=== PATIENT | male | born 1940 | race Caucasian/White ===

== ENCOUNTER → 2017-08-27 07:59 | Outpatient (CLI) | payer MEDICARE, SELFPAY ==
[2017-08-27 09:13] LABS: Add Manual Diff / Slide Review NO; Basophils Percent Auto 0.7 % (0-2); Eosinophils Percent Auto 1.4 % (2-4); Hematocrit 41.1 % (41-53); Hemoglobin 14.1 g/dL (13.5-17.5); Lymphocytes Percent Auto 29.9 % (25-40); Mean Corpuscular HGB Conc 34.3 % (30-36); Mean Corpuscular Volume 96.4 fL (80-100); Monocytes Percent Auto 6.4 % (3-14); Neutrophils Absolute Auto 4400 /uL (3000-5900); Neutrophils Percent Auto 61.6 % (50-75); Platelet Count 212 X10^3/uL (150-400); Red Blood Cell Count 4.26 X10^6/uL (4.5-5.9); White Blood Cell Count 7.2 X10^3/uL (4.5-11.0)
[2017-08-27 09:28] LABS: INR 1.9 (0.9-1.3); Prothrombin Time 20.1 SECONDS (10.1-12.7)
[2017-08-27 09:54] LABS: Alanine Aminotransferase 33 IU/L (21-72); Albumin 4.1 g/dL (3.5-5.0); Albumin Globulin Ratio 1.4 (1.0-2.8); Alkaline Phosphatase 50 U/L (38-126); Aspartate Aminotransferase 27 IU/L (17-59); Bilirubin Total 0.7 mg/dL (0.2-1.3); Calcium 9.1 mg/dL (8.4-10.2); Estimated Glomerular Filt Rate > 60.0 mL/min (>60); Globulin 2.9 g/dL (1.7-4.1); Glucose 129 mg/dL (80-110); HEMOLYSIS < 15 (0-50); Magnesium 1.8 mg/dL (1.6-2.3); Potassium 3.9 mmol/L (3.4-5.1); Sodium 142 mmol/L (137-145)
[2017-08-27 10:20] LABS: Thyroid Stimulating Hormone 2.08 uIU/mL (0.47-4.68)
== END ==
PROVIDERS: PCP Family Medicine; Visit Provider Internal Medicine Cardiovascular Disease
DX: I48.0 Paroxysmal atrial fibrillation (principal); I48.91 Unspecified atrial fibrillation
CPT/HCPCS: 36415; 80053; 83735; 84443; 85025; 85610

== ENCOUNTER → 2017-10-31 09:07 | Outpatient (CLI) | payer MEDICARE, SELFPAY ==
[2017-10-31 11:06] LABS: Cholesterol 141 mg/dL (140-199); HDL Cholesterol 71 mg/dL (40-60); LDL Cholesterol Calculated 19 mg/dL (<100); Triglycerides 255 mg/dL (35-150)
== END ==
PROVIDERS: PCP Family Medicine; Visit Provider Internal Medicine Cardiovascular Disease
DX: E78.5 Hyperlipidemia, unspecified (principal)
CPT/HCPCS: 36415; 80061

== ENCOUNTER 2017-11-16 15:24 | Inpatient (IN) | payer MEDICARE, SELFPAY ==
[2017-11-16] VITALS (23 sets, daily range): BP systolic 98–143; BP diastolic 57–89; PULSE 96–160; RESP 14–30; TEMP 36.1–37.2; O2SAT 92–100; BMI 34.7
--- NOTE | 2017-11-16 | DI.RAD.S_ITS ---
PROCEDURE: XR SHOULDER RT 1V INDICATIONS: CLOSED REDUCTION TECHNIQUE: 3 views of the shoulder were acquired. COMPARISON: [facility], CR, XR SHOULDER RT MIN 2V, 11/16/2017, 16:20. FINDINGS: Intraoperative fluoroscopy of the right shoulder was performed for the referring clinical service, with provided images demonstrating the reduction of the previously noted shoulder dislocation seen on comparison radiographs of 11/16/2017. IMPRESSION: Intraoperative fluoroscopy of right shoulder reduction. Please refer to the clinical note/operative report for further details. Dictated by: Yung Green M.D. on 11/17/2017 at 8:46 Approved by: Yung Green M.D. on 11/17/2017 at 8:48
--- NOTE | 2017-11-16 15:33 | DI.RAD.S_ITS ---
PROCEDURE: XR SHOULDER RT MIN 2V INDICATIONS: obvious shoulder deformity TECHNIQUE: 2 views of the shoulder were acquired. COMPARISON: None. FINDINGS: Bones: The humeral head is dislocated anteroinferiorly.. No suspicious bony lesions. Visualized ribs appear intact. Soft tissues: No suspicious soft tissue calcifications. IMPRESSION: Anteroinferior shoulder dislocation. Dictated by: Azam Castro M.D. on 11/16/2017 at 16:35 Approved by: Azam Castro M.D. on 11/16/2017 at 16:35
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
[2017-11-16] MEDS: ASPIRIN 81 MG TAB 324 MG PO (15:57)
[2017-11-16] MEDS: SODIUM CHLORIDE 0.9% 1,000 ML 150 ML IV (15:58)
[2017-11-16 16:00] LABS: Add Manual Diff / Slide Review NO; Basophils Percent Auto 0.6 % (0-2); Eosinophils Percent Auto 0.4 % (2-4); Hemoglobin 13.9 g/dL (13.5-17.5); Lymphocytes Percent Auto 24.2 % (25-40); Mean Corpuscular HGB Conc 34.6 % (30-36); Mean Corpuscular Hemoglobin 33.5 PG (26-34); Mean Corpuscular Volume 96.6 fL (80-100); Neutrophils Absolute Auto 7400 /uL (3000-5900); Neutrophils Percent Auto 67.8 % (50-75); Platelet Count 209 X10^3/uL (150-400); Red Blood Cell Count 4.14 X10^6/uL (4.5-5.9); Red Cell Distribution Width 14.1 % (11.6-14.8)
[2017-11-16 16:11] LABS: Alanine Aminotransferase 31 IU/L (21-72); Albumin 4.3 g/dL (3.5-5.0); Albumin Globulin Ratio 1.7 (1.0-2.8); Alkaline Phosphatase 55 U/L (38-126); Aspartate Aminotransferase 32 IU/L (17-59); BUN Creatinine Ratio 18.6 (6-22); Bilirubin Total 0.8 mg/dL (0.2-1.3); Blood Urea Nitrogen 13 mg/dL (9-20); Carbon Dioxide 26 mmol/L (22-32); Chloride 103 mmol/L (98-107); Creatine Kinase 123 U/L (55-170); Estimated Glomerular Filt Rate > 60.0 mL/min (>60); Globulin 2.6 g/dL (1.7-4.1); Glucose 142 mg/dL (80-110); HEMOLYSIS < 15 (0-50); Lipase 150 U/L (23-300); Potassium 3.3 mmol/L (3.4-5.1); Sodium 140 mmol/L (137-145); Total Protein 6.9 g/dL (6.3-8.2)
[2017-11-16 16:23] LABS: Troponin I < 0.012 ng/mL (0.01-0.034)
[2017-11-16 16:26] LABS: CKMB % Relative Index 1.1 % (1.5-5.0); Creatine Kinase MB 1.31 ng/mL (<2.37)
[2017-11-16 16:54] LABS: INR 4.2 (0.9-1.3); Prothrombin Time 47.6 SECONDS (10.1-12.7)
[2017-11-16] MEDS: PROPOFOL 200 MG/20 ML VIAL 100 MG IV (17:52)
[2017-11-16] MEDS: dilTIAZem 25 MG/5 ML SDV 10 MG IV (18:13)
[2017-11-16] MEDS: fentaNYL 100 MCG/2 ML INJ 25 MCG IV ×2 (18:49→19:52)
[2017-11-16] MEDS: dilTIAZem 125 MG in DEXTROSE 5 % IN WATER 100 ML IV (18:50)
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
[2017-11-16] MEDS: dilTIAZem 25 MG/5 ML SDV 20 MG IV (20:00)
[2017-11-16 20:23] LABS: Magnesium 1.8 mg/dL (1.6-2.3)
[2017-11-16] MEDS: SODIUM CHLORIDE 0.9% 1,000 ML 125 ML IV (20:57)
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
[2017-11-16] MEDS: POTASSIUM CHLORIDE 20 MEQ in SODIUM CHLORIDE 0.9% 250 ML 130 ML IV (21:14)
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
--- NOTE | 2017-11-16 21:32 | PC.NURSE ---
2019- Patient arrived via stretcher to room 106. Patient alert and oriented. Patient right shoulder is dislocated and painful. Patient on diltiazem gtt at 15mg/hr, 20mg bolus given per order. Patient started on krider per MD order. Vss. Room air saturation 96% Patient admits to drinking daily, last drink yesterday marisela. IV fluids running per order 125cc/hr. Patient left for OR at 2120 stable at time of transfer.
[2017-11-16 21:44] LABS: TSH w/ Reflex to FT4 2.48 uIU/mL (0.47-4.68)
--- NOTE | 2017-11-16 21:57 | SUR.OPER ---
Supine on padded OR bed, head on pillow, arms secured on padded arm boards at <90 degrees abduction, legs uncrossed, safety belt at thigh, tape over blanket over lower legs.
--- NOTE | 2017-11-16 22:05 | PM.PN.1 ---
Subjective Date Patient Seen: 11/16/17 Time Patient Seen: 22:05 Interval history: This is an addendum to H and P >60minutes was spent in critical care at bedside with patient in ER Exam Vital Signs (past 8 hours): - 11/16/17 15:46 11/16/17 16:15 11/16/17 17:06 Temperature 97 F L Pulse Rate 154 H 153 H 139 H Respiratory Rate 15 22 14 Blood Pressure 116/77 Blood Pressure [Left Arm] 130/76 H 143/81 H Pulse Oximetry 93 96 11/16/17 17:25 11/16/17 17:30 11/16/17 17:31 Temperature Pulse Rate 145 H 152 H 136 H Respiratory Rate 23 20 22 Blood Pressure Blood Pressure [Left Arm] 131/83 H 117/69 129/71 H Pulse Oximetry 100 96 93 11/16/17 17:34 11/16/17 17:39 11/16/17 17:42 Temperature Pulse Rate 141 H 148 H 160 H Respiratory Rate 24 19 20 Blood Pressure Blood Pressure [Left Arm] 98/61 110/66 Pulse Oximetry 99 98 11/16/17 17:44 11/16/17 17:49 11/16/17 18:20 Temperature Pulse Rate 131 H 139 H 138 H Respiratory Rate 30 H 21 18 Blood Pressure Blood Pressure [Left Arm] 130/66 H 131/61 H 102/83 H Pulse Oximetry 98 100 99 11/16/17 18:50 11/16/17 19:46 11/16/17 20:07 Temperature Pulse Rate 146 H 148 H 143 H Respiratory Rate 17 17 Blood Pressure 130/63 H Blood Pressure [Left Arm] 134/89 H 121/68 H Pulse Oximetry 97 96 Oxygen Delivery Method Room Air Oxygen Flow Rate 2 Objective Labs Result Diagrams: 11/16/17 15:50 11/16/17 15:50 Labs: Laboratory Results - last 24 hr 11/16/17 11/16/17 11/16/17 15:50 15:50 15:50 WBC 11.0 RBC 4.14 L Hgb 13.9 Hct 40.0 L MCV 96.6 MCH 33.5 MCHC 34.6 RDW 14.1 Plt Count 209 Neut % (Auto) 67.8 Lymph % (Auto) 24.2 L [place] % (Auto) 7.0 Eos % (Auto) 0.4 L Baso % (Auto) 0.6 Neut # (Auto) 7400 H PT INR Sodium 140 Potassium 3.3 L Chloride 103 Carbon Dioxide 26 BUN 13 Creatinine 0.70 Estimated GFR > 60.0 BUN/Creatinine Ratio 18.6 Glucose 142 H Calcium 9.0 Magnesium 1.8 Total Bilirubin 0.8 AST 32 ALT 31 Alkaline Phosphatase 55 Total Creatine Kinase 123 CK-MB (CK-2) 1.31 CK-MB (CK-2) Rel Index 1.1 L Troponin I < 0.012 Total Protein 6.9 Albumin 4.3 Globulin 2.6 Albumin/Globulin Ratio 1.7 Lipase 150 TSH 11/16/17 11/16/17 15:50 16:48 WBC RBC Hgb Hct MCV MCH MCHC RDW Plt Count Neut % (Auto) Lymph % (Auto) [place] % (Auto) Eos % (Auto) Baso % (Auto) Neut # (Auto) PT 47.6 H INR 4.2 H Sodium Potassium Chloride Carbon Dioxide BUN Creatinine Estimated GFR BUN/Creatinine Ratio Glucose Calcium Magnesium Total Bilirubin AST ALT Alkaline Phosphatase Total Creatine Kinase CK-MB (CK-2) CK-MB (CK-2) Rel Index Troponin I Total Protein Albumin Globulin Albumin/Globulin Ratio Lipase TSH 2.48 Quality VTE Deep Vein Thrombosis/Pulmonary Embolism Present on Admission: No
--- NOTE | 2017-11-16 22:12 | SUR.OPER ---
Big C arm was used during procedure
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
[2017-11-16] MEDS: HYDROMORPHONE 0.5 MG INJ IV (22:39)
--- NOTE | 2017-11-16 22:40 | SUR.PHASEI ---
PT TRANSFERED TO ICU AT 2230 ON THE MONITOR. PT VITAL SIGNS REMAINED STABLE. PT TALKING TO RN DURING TRANSPORT. BEDSIDE REPORT GIVEN TO DENIS CABALLERO UPON ARRIVAL TO PT ROOM. CARE OF PT TRANSFERED TO [facility] AT THAT TIME.
--- NOTE | 2017-11-16 22:45 | PC.NURSE ---
2229- Patient returned from OR procedure. Awake alert and cooperative. Patient rates his pain at 4/10 medicated per order. Patient right shoulder immobilized. Vitals stable upon arrival. Diltiazem gtt at 15mg/hr, krider infusing per order, maint IV infusing per order at 125cc/hr. Room air saturation 96%
--- NOTE | 2017-11-16 23:20 | PM.PREOP ---
Pre-operative Note Interval Note Pre-op Check: Yes Exam Performed and Yes History & Physical exam performed today by Physician Changes: No H&P completed within 30 days and has changed as indicated here:: H&P performed today by this provider. The patient appropriate for closed reduction in the operating room with sedation, right shoulder dislocation
[2017-11-17] VITALS (17 sets, daily range): BP systolic 108–141; BP diastolic 50–78; PULSE 74–96; RESP 12–19; TEMP 36.6–37.5; O2SAT 90–96
[2017-11-17 00:17] LABS: Creatine Kinase 883 U/L (55-170)
[2017-11-17 00:30] LABS: Troponin I 0.095 ng/mL (0.01-0.034)
[2017-11-17 00:33] LABS: CKMB % Relative Index 0.3 % (1.5-5.0); Creatine Kinase MB 2.76 ng/mL (<2.37)
[2017-11-17] MEDS: HYDROMORPHONE 0.5 MG INJ IV ×4 (00:53→07:01)
[2017-11-17] MEDS: dilTIAZem 125 MG in DEXTROSE 5 % IN WATER 100 ML 15 ML IV (03:09)
[2017-11-17] MEDS: SODIUM CHLORIDE 0.9% 1,000 ML 150 ML IV (05:03)
[2017-11-17 05:32] LABS: Add Manual Diff / Slide Review NO; Basophils Percent Auto 0.4 % (0-2); Eosinophils Percent Auto 0.1 % (2-4); Hematocrit 35.7 % (41-53); Mean Corpuscular HGB Conc 33.7 % (30-36); Mean Corpuscular Hemoglobin 32.8 PG (26-34); Mean Corpuscular Volume 97.3 fL (80-100); Monocytes Percent Auto 8.7 % (3-14); Neutrophils Absolute Auto 8000 /uL (3000-5900); Neutrophils Percent Auto 70.8 % (50-75); Platelet Count 187 X10^3/uL (150-400); Red Blood Cell Count 3.66 X10^6/uL (4.5-5.9); Red Cell Distribution Width 13.8 % (11.6-14.8); White Blood Cell Count 11.3 X10^3/uL (4.5-11.0)
[2017-11-17 05:39] LABS: Prothrombin Time 33.3 SECONDS (10.1-12.7)
[2017-11-17 05:47] LABS: Alanine Aminotransferase 29 IU/L (21-72); Albumin Globulin Ratio 1.4 (1.0-2.8); Alkaline Phosphatase 39 U/L (38-126); Aspartate Aminotransferase 36 IU/L (17-59); Bilirubin Total 1.4 mg/dL (0.2-1.3); Blood Urea Nitrogen 6 mg/dL (9-20); Carbon Dioxide 28 mmol/L (22-32); Chloride 103 mmol/L (98-107); Creatine Kinase 1146 U/L (55-170); Estimated Glomerular Filt Rate > 60.0 mL/min (>60); Globulin 2.2 g/dL (1.7-4.1); Glucose 124 mg/dL (80-110); HEMOLYSIS < 15 (0-50); Magnesium 1.4 mg/dL (1.6-2.3); Potassium 2.8 mmol/L (3.4-5.1); Sodium 137 mmol/L (137-145); Total Protein 5.2 g/dL (6.3-8.2)
[2017-11-17 05:56] LABS: Troponin I 0.089 ng/mL (0.01-0.034)
[2017-11-17 06:02] LABS: CKMB % Relative Index 0.3 % (1.5-5.0); Creatine Kinase MB 2.94 ng/mL (<2.37)
[2017-11-17 06:04] LABS: Calcium 6.9 mg/dL (8.4-10.2)
[2017-11-17] MEDS: POTASSIUM CHLORIDE 40 MEQ in SODIUM CHLORIDE 0.9% 500 ML 130 ML IV (06:43)
[2017-11-17] MEDS: dilTIAZem 30 MG TABLET 60 MG PO ×2 (08:49→12:06)
[2017-11-17] MEDS: THIAMINE 100 MG TABLET PO (08:50)
[2017-11-17] MEDS: MULTIVITAMIN 1 TABLET 1 TAB PO (08:50)
[2017-11-17] MEDS: FOLIC ACID 1 MG TABLET PO (08:50)
[2017-11-17] MEDS: HYDROCODONE/ACET 5/325 TABLET 2 TAB PO ×2 (09:05→18:32)
[2017-11-17] MEDS: PANTOPRAZOLE 40 MG VIAL IV (09:09)
--- NOTE | 2017-11-17 10:52 | PC.NURSE ---
pt weak and slightly disorganized this am- allowed to sit on edge of bed and assessed prior to getting up to chair for am meal - meadicated with vicodin x 2 for c/o right shoulder pain- lungs clear throughout - sling in place to right upper extremity, + cms , voiding frequently pale and clear urine- will be evaluated by PT - also, started on po diltiazem 60mg and weaned dilt gtt to 10mg so far will d/c as able after 2nd dose of po dilt given at noon-time- remains in afib
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
[2017-11-17] MEDS: HYDROCODONE/ACET 5/325 TABLET 1 TAB PO ×2 (12:57→14:57)
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
[2017-11-17] MEDS: MAGNESIUM SULFATE 2 GM/50 ML PIGGYBACK IV (14:33)
[2017-11-17] MEDS: METOPROLOL ER 50 MG TABLET PO (14:50)
[2017-11-17] MEDS: DOCUSATE 100 MG CAPSULE 200 MG PO ×2 (14:54→22:02)
--- NOTE | 2017-11-17 15:23 | PT.IPTN ---
Surgery Performed Operation Date: 11/16/17 09:15 Actual Procedures p Closed Reduction right shoulder dislocation - Xochitl Bird MD Physical Therapy Treatment Note M2 PT-IP Current Condition Start: 11/17/17 12:53 Freq: Status: Active Protocol: Document 11/17/17 11:40 RCC (Rec: 11/17/17 13:09 RCC [id number]) Physical Therapy Current Condition Current Condition Evaluation Date 11/17/17 Treatment Diagnosis R shoulder dislocation s/p closed reduction 11/16/17, A- fib with RVR Onset Date 11/16/17 Precautions Shoulder Precautions Sling Other Precautions sling and swathe @ all times, no mobilization or ROM of R shoulder for 1 wk. Weight Bearing Status Weight Bearing Status Non-Weight Bearing Allowed Weight Bearing Amount (enter % NWB RUE or #) (%) M3 PT-IP Subjective Start: 11/17/17 12:53 Freq: Status: Active Protocol: Document 11/17/17 15:23 RCC (Rec: 11/17/17 15:30 RCC [id number]) Subjective Physical Therapy Visit Type Type Treatment Note Visit Start Time 15:00 Visit Stop Time 15:23 Total Visit Minutes 23 Number of NEWS SPECIALIST Visits 0 Physical Therapy Visit Comments Patient Comments pt agreeable to ambulate. Therapy Pain Assessment Pain When Pain Assessed At Rest Location Right Shoulder Intensity 4 Scale Used Numeric (1 - 10) M4 PT-IP Mobility and Gait Start: 11/17/17 12:53 Freq: Status: Active Protocol: Document 11/17/17 15:23 RCC (Rec: 11/17/17 15:30 RCC [id number]) PT-Bed Mobility Assessment Supine to Sit Supine to Sit Minimal Assistance 1 Person Assistance Head of Bed Elevated Sit to Supine Sit to Supine Contact Guard Assistance Head of Bed Elevated Scooting Scooting to Edge of Bed Contact Guard Assistance PT-Transfer Assessment Sit to and From Stand Sit to and from Stand Contact Guard Assistance Equipment Transfer Assistive Device Gait Belt Small Based Quad Cane Transfers Transfer Destination Bed Transfer Technique Stand Step Pivot Transfer Ability Level of Assist Contact Guard Assistance Gait Assessment Gait Gait Assistance Required: Contact Guard Assist Distance (Feet) (feet) 50 Assistive Devices Assistive Device Gait Belt Small Based Quad Cane Gait Deviations General Gait Pattern Decreased Stride Length Decreased Feet Clearance Wide Based Gait Factors Limiting Gait Function Factors Limiting Gait Function Decreased Activity Tolerance Decreased Strength Poor Balance Comments Gait Comments increased lateral sway with inconsistent contact of SBQC to the ground with gait, VC for sequencing. PT-Balance Assessment Standing Balance and Reactions Static Standing Balance Ability Fair Dynamic Standing Balance Ability Poor Device Used SBQC M5 PT-IP Objective Assessments Start: 11/17/17 12:53 Freq: Status: Active Protocol: Document 11/17/17 15:23 RCC (Rec: 11/17/17 15:30 RCC [id number]) Orientation Orientation/Cognition Level of Alertness Alert M6 PT-IP Treatment Start: 11/17/17 12:53 Freq: Status: Active Protocol: Document 11/17/17 15:23 RCC (Rec: 11/17/17 15:30 RCC [id number]) Physical Therapy Treatment Education Education Provided Precautions Safety M7 PT-IP Assessment and Plan Start: 11/17/17 12:53 Freq: Status: Active Protocol: Document 11/17/17 15:23 RCC (Rec: 11/17/17 15:30 RCC [id number]) PT Summary Assessment and Plan Summary Assessment Summary Pt is s/p closed reduction for R anterior shoulder dislocation on 11/16/17. Pt required less physical assistance with standing balance and gait, but still with moderate lateral sway. Pt is benefitting from using the quad cane, but he continues to require cuing for proper use to improve stability. Goals Bed Mobility Goal Standby Assistance Transfer Goal Independent Gait Goal Standby Assistance Cane Gait Distance 150 Other Goals up/down 2 steps with R ascending rail and CGA Days to Meet Goals 2 Frequency of Treatment Frequency Of Treatment Twice a Day Treatment Plan Other Recommendations and Next Treatment gait, stair training prior to Focus d/c. Recommendations To Nursing Amount of Assist Needed 1 Person Assist Discharge Recommendations PT Discharge Recommendations Home with 24/7 Assist SNF Rehab Other Discharge Recommendations home with 24/7 assist vs. SNF. Equipment Needed for Home Before quad cane Discharge
[2017-11-17 16:24] LABS: HEMOLYSIS < 15 (0-50); Magnesium 2.1 mg/dL (1.6-2.3); Potassium 3.4 mmol/L (3.4-5.1)
--- NOTE | 2017-11-17 17:12 | PC.NURSE ---
marisela note pt denies pain at this time. Right arm in sling. Intact CMS checks to right arm. 1-2+ edema to right hand, with shiny skin. Pt able to use urinal himself once he has been assisted OOB.
--- NOTE | 2017-11-17 23:47 | PM.CN ---
History of Present Illness Date Patient Seen: 11/17/17 Time Patient Seen: 13:47 Chief complaint: Rt shoulder pain Reason for consult: Rapid atrial fibrillation Requesting provider: Kiley Miranda Narrative: History of present illness Patient admitted to the hospital with rapid AFib. Initially placed and was placed on an IV diltiazem drip. An a.m. today I stopped the IV diltiazem drip. Patient had a pulse of 78 and in in continued atrial fibrillation. The the ventricular response to the AFib was controlled. The diltiazem 60 mg p.o. q.i.d. short-acting was started instead. [facility] Medical History CAD (coronary artery disease) (Acute) HTN (hypertension) (Acute) Hyperlipidemia (Acute) Surgical History Hx of CABG (Acute) Social History household members: spouse Smoking Status: Unknown if ever smoked alcohol intake: current Meds Home Medications Medication Instructions Recorded Confirmed Type allopurinol 300 mg PO DAILY 11/16/17 11/16/17 History atorvastatin [Lipitor] 40 mg PO DAILY 11/16/17 11/16/17 History desoximetasone 11/16/17 History metoprolol tartrate 50 mg PO DAILY 11/16/17 11/16/17 History omeprazole 10 mg PO DAILY 11/16/17 11/16/17 History pravastatin 40 mg PO DAILY 11/16/17 11/16/17 History warfarin [Coumadin] 2.5 mg PO 5XW 11/16/17 11/16/17 History warfarin [Coumadin] 5 mg PO 2XW 11/16/17 11/16/17 History Allergies Allergy/AdvReac Type Severity Reaction Status Date / Time No Known Drug Allergies Allergy Verified 11/16/17 18:35 Review of Systems Review of Systems Review of system No chest pain or shortness of breath no nausea no palpitations All systems reviewed & are unremarkable except as noted in HPI and below Exam Vital Signs (past 8 hours): - 11/17/17 19:46 Temperature 98.9 F Pulse Rate 93 H Respiratory Rate 17 Blood Pressure 118/57 L Oxygen Delivery Method Nasal Cannula Oxygen Flow Rate 1.5 Narrative Exam Narrative: General appearance Patient is awake and alert no apparent distress at rest Psychiatric Well oriented to time place person mood is pleasant affect is appropriate Respiratory Fair breath sounds are noted no wheezes no crackles Cardiovascular Irregular irregular rhythm rate controlled at about 85 per minute pulses +3 to extremities no murmur noted Gastrointestinal Soft nontender positive bowel sounds no masses no bruits Neurologic No focal neurologic changes cranial nerves 2-12 grossly intact Objective Labs Result Diagrams: 11/17/17 05:11 11/17/17 16:05 Labs: Laboratory Results - last 24 hr 11/16/17 11/16/17 11/17/17 20:25 23:43 05:11 WBC RBC Hgb Hct MCV MCH MCHC RDW Plt Count Neut % (Auto) Lymph % (Auto) [place] % (Auto) Eos % (Auto) Baso % (Auto) Neut # (Auto) PT 33.3 H D INR 3.0 H Sodium Potassium Chloride Carbon Dioxide BUN Creatinine Estimated GFR BUN/Creatinine Ratio Glucose Calcium Magnesium Total Bilirubin AST ALT Alkaline Phosphatase Total Creatine Kinase 883 H D CK-MB (CK-2) 2.76 H D CK-MB (CK-2) Rel Index 0.3 L Troponin I 0.095 H Total Protein Albumin Globulin Albumin/Globulin Ratio Nasal Screen MRSA (PCR) Negative for mrsa 11/17/17 11/17/17 11/17/17 05:11 05:11 16:05 WBC 11.3 H RBC 3.66 L Hgb 12.0 L Hct 35.7 L MCV 97.3 MCH 32.8 MCHC 33.7 RDW 13.8 Plt Count 187 Neut % (Auto) 70.8 Lymph % (Auto) 20.0 L [place] % (Auto) 8.7 Eos % (Auto) 0.1 L Baso % (Auto) 0.4 Neut # (Auto) 8000 H PT INR Sodium 137 Potassium 2.8 L 3.4 Chloride 103 Carbon Dioxide 28 BUN 6 L Creatinine 0.50 L Estimated GFR > 60.0 BUN/Creatinine Ratio 12.0 Glucose 124 H Calcium 6.9 L Magnesium 1.4 L 2.1 Total Bilirubin 1.4 H AST 36 ALT 29 Alkaline Phosphatase 39 Total Creatine Kinase 1146 H CK-MB (CK-2) 2.94 H CK-MB (CK-2) Rel Index 0.3 L Troponin I 0.089 H Total Protein 5.2 L Albumin 3.0 L Globulin 2.2 Albumin/Globulin Ratio 1.4 Nasal Screen MRSA (PCR) Assessment & Plan Plan: Assessment/Plan Narrative: 1. Atrial fibrillation with rapid ventricular response Patient with known history of atrial fibrillation on chronic anticoagulant therapy. INR is 4.2 and super therapeutic under admission. Coumadin held at this time. Patient given 10 mg of IV bolus diltiazem in the ER. Only partial response was noted. Patient was started on oral diltiazem IV infusion at 5 milligrams/hour titrating upward to try and bring the ventricular response to under 110 per minute. I saw the patient in the emergency room setting before being moved to the ICU. Upon arrival in the ICU his ventricular response rate was still up. I have requested for a 20 mg IV bolus of diltiazem IV. His blood pressure is stable and should tolerate such. In a.m. today the ventricular response was 78 beats per minute with a continued AFib. I stopped the IV diltiazem infusion. Patient was started on diltiazem 60 mg short-acting orally q.i.d. Dr. Miranda notes that the patient was basically rate controlled on the beta-adrian for the past several years or longer. She would like to hold the patient another day and monitor him off the diltiazem to see if the beta-adrian can adequately controls the patient's atrial fibrillation without the diltiazem. If necessary patient can be resumed on the diltiazem as well and discharged on this medication. 2. Supratherapeutic INR Hold the Coumadin and repeat INR daily. 3. 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 Continue his cardiac medications as tolerated. 4. Chronic alcoholism I requested Ativan order IV to be given based upon CIWA scoring. A baseline CIWA score was requested upon arrival to the ICU. During the night the CIWA score was checked every 2 hours while awake. Based upon the CIWA score could provide the Ativan when the 1-2 mg IV. 5. Shoulder dislocation Consulted with orthopedic surgeon with reduction completed under anesthesia. 6. Hypokalemia replace prn. Time Spent With Patient Time with patient: 25 - 35 minutes
[2017-11-18] MEDS: HYDROCODONE/ACET 5/325 TABLET 2 TAB PO ×3 (00:17→09:27)
[2017-11-18 00:21] VITALS: BP 140/68; PULSE 86; RESP 14; TEMP 37.1; O2SAT 97
[2017-11-18 04:48] VITALS: BP 148/77; PULSE 85; RESP 12; TEMP 36.9; O2SAT 95
[2017-11-18 07:32] VITALS: BP 129/70; PULSE 83; RESP 16; TEMP 36.7; O2SAT 95
--- NOTE | 2017-11-18 08:06 | PM.DS.1 ---
History of Present Illness Date Patient Seen: 11/18/17 Time Patient Seen: 08:06 Chief complaint: Rt shoulder pain Narrative: See H& P. 77-year-old brought in after a fall. Dislocated right shoulder. Was in rapid ventricular rate. Admitted. Discharge Providers Date of admission: 11/16/17 18:39 Primary care physician: Enrike Arce MD Consults: 11/16/17 20:42 Consult to Orthopedic Surgery Routine Comment: Consulting Provider: Xochitl Bird Reason for consultation: Dislocated Shoulder Has provider been notified: Yes Consult to Physician Routine Comment: Consulting Provider: Ze Qiu Reason for consultation: ICU Management Has provider been notified: Yes 11/17/17 09:03 Consult to Physical Therapy Evaluate & Treat Comment: Physician Instructions: Evaluate and Treat Discharge provider: Enrike Arce MD Summary Hospital Course: Problem 1. Right shoulder dislocation. Patient was admitted to the hospital and taken to the OR. After multiple attempts at trying to reduce it. Was reduced in the OR. Placed in a sling. Patient is comfortable and doing well. Will be followed up as an outpatient. Problem 2. Atrial fibrillation with rapid ventricular rate. Longstanding. Patient overall was restarted on his metoprolol. On day 2 we converted and did well. Was aggressively managed with Cardizem prior to that. Problem 3. Elevated INR. Will be followed. Restart his usual Coumadin all check blood work on Saturday. Problem 4. History of coronary artery disease stable throughout admission. History of esophageal stricture. Continue Protonix as outpatient. Hypokalemia. Has been on meds. Will follow up before discharge. Hypo magnesium. Replaced. Check today. Will follow. Status at Discharge Cognitive/behavioral status at discharge: Stable. Functional status at discharge: independent ambulation Overall status at discharge: patient is progressing back to baseline Time Spent with Patient Greater than 30 minutes Exam Vital Signs (past 8 hours): - 11/18/17 00:21 11/18/17 04:48 11/18/17 07:32 Temperature 98.7 F 98.5 F 98.0 F Pulse Rate 86 85 83 Respiratory Rate 14 12 16 Blood Pressure 140/68 H 148/77 H 129/70 H Pulse Oximetry 97 95 95 Oxygen Delivery Method Nasal Cannula Oxygen Flow Rate 0 Objective Labs Result Diagrams: 11/17/17 05:11 11/17/17 16:05 Labs: Laboratory Results - last 24 hr 11/17/17 16:05 Potassium 3.4 Magnesium 2.1 Discharge Plan Discharge Plan Patient Disposition: Home, Self-Care Discharge comment: call me with labs when available. Provider Discharge Instructions Diet comment: normal Activity: as tolerated. leave shoulder immobilizer in place Cold/Heat Therapy: Can use ice to shoulder Other treatments: Continue CPAP Discharge Data Primary Care Provider: Enrike Arce Attending Provider: Kiley Miranda Admit Date/Time: 11/16/17 18:39 Quality VTE Deep Vein Thrombosis/Pulmonary Embolism Present on Admission: No
[2017-11-18 08:54] VITALS: PULSE 107
[2017-11-18] MEDS: METOPROLOL ER 50 MG TABLET PO (08:54)
[2017-11-18] MEDS: FOLIC ACID 1 MG TABLET PO (08:54)
[2017-11-18] MEDS: PANTOPRAZOLE 40 MG VIAL IV (08:54)
[2017-11-18] MEDS: THIAMINE 100 MG TABLET PO (08:54)
[2017-11-18] MEDS: MULTIVITAMIN 1 TABLET 1 TAB PO (08:54)
[2017-11-18] MEDS: DOCUSATE 100 MG CAPSULE 200 MG PO (08:55)
[2017-11-18 09:28] LABS: Blood Urea Nitrogen 7 mg/dL (9-20); Calcium 8.3 mg/dL (8.4-10.2); Carbon Dioxide 31 mmol/L (22-32); Chloride 101 mmol/L (98-107); Estimated Glomerular Filt Rate > 60.0 mL/min (>60); Glucose 111 mg/dL (80-110); HEMOLYSIS < 15 (0-50); Potassium 3.5 mmol/L (3.4-5.1); Sodium 138 mmol/L (137-145)
--- NOTE | 2017-11-18 10:04 | PT.IPTN ---
Surgery Performed Operation Date: 11/16/17 09:15 Actual Procedures p Closed Reduction Right Shoulder Dislocation(Right) - Xochitl Bird MD Physical Therapy Treatment Note M2 PT-IP Current Condition Start: 11/17/17 12:53 Freq: Status: Active Protocol: Document 11/17/17 11:40 RCC (Rec: 11/17/17 13:09 RCC [id number]) Physical Therapy Current Condition Current Condition Evaluation Date 11/17/17 Treatment Diagnosis R shoulder dislocation s/p closed reduction 11/16/17, A- fib with RVR Onset Date 11/16/17 Precautions Shoulder Precautions Sling Other Precautions sling and swathe @ all times, no mobilization or ROM of R shoulder for 1 wk. Weight Bearing Status Weight Bearing Status Non-Weight Bearing Allowed Weight Bearing Amount (enter % NWB RUE or #) (%) M3 PT-IP Subjective Start: 11/17/17 12:53 Freq: Status: Active Protocol: Document 11/18/17 09:49 DLM (Rec: 11/18/17 10:03 DLM [id number]) Subjective Physical Therapy Visit Type Type Treatment Note Visit Start Time 09:15 Visit Stop Time 09:49 Total Visit Minutes 34 Number of RAMP FLIGHT ATTENDANT Visits 0 Physical Therapy Visit Comments Patient Comments He wants to go home today, is not sure who can help him at home, he does not have a cane. His Son will be with him today but then plans to return to [place]. Therapy Pain Assessment Pain When Pain Assessed At Rest Pain Present Pain Present Pain Reported Location Right Shoulder Intensity 3 Scale Used Numeric (1 - 10) Description Aching Pain Behaviors Guarding M4 PT-IP Mobility and Gait Start: 11/17/17 12:53 Freq: Status: Active Protocol: Document 11/18/17 09:49 DLM (Rec: 11/18/17 10:03 DLM [id number]) PT-Transfer Assessment Sit to and From Stand Sit to and from Stand Contact Guard Assistance Use of Upper Extremities Equipment Transfer Assistive Device Gait Belt Small Based Quad Cane Orthotic/Prosthetic Devices or Brace: Yes Gait Assessment Gait Gait Assistance Required: Contact Guard Assist Minimum Assistance Distance (Feet) (feet) 75 Assistive Devices Assistive Device Gait Belt Small Based Quad Cane Gait Deviations General Gait Pattern Decreased Stride Length Decreased Feet Clearance Factors Limiting Gait Function Factors Limiting Gait Function Decreased Strength Pain Poor Balance Comments Gait Comments short shuffling strides, he describes his LE's as feeling like rubber, reminders needed to use his quad cane Stair Climbing Assessment Evaluation Level of Assist On Stairs Contact Guard Assistance Minimal Assistance Devices Stair Climbing Assistive Devices Left Railing Right Railing Technique/Endurance Stair Climbing Direction Ascend and Descend Stair Climbing Technique Step to Step Number of Steps Climbed 1 Query Text: Stair Climbing Set # Repetitions (reps) 4 Comments Stair Climbing Comments able to get up/down step better when rail on left side, he has difficulty problem solving to turn sideways when using right rail with left hand and making space on the step for both feet. His step into the house has rail on right side so getting in will be more challenging for him than getting out of the house. PT-Balance Assessment Sitting Balance and Reactions Static Sitting Balance Ability Normal Dynamic Sitting Balance Ability Good Standing Balance and Reactions Static Standing Balance Ability Fair Dynamic Standing Balance Ability Fair Device Used quad cane Comments Other Balance Tests/Deviations/Treatment slow mental processing today, : difficulty problem solving M5 PT-IP Objective Assessments Start: 11/17/17 12:53 Freq: Status: Active Protocol: Document 11/17/17 15:23 RCC (Rec: 11/17/17 15:30 RCC [id number]) Orientation Orientation/Cognition Level of Alertness Alert M6 PT-IP Treatment Start: 11/17/17 12:53 Freq: Status: Active Protocol: Document 11/18/17 09:49 DLM (Rec: 11/18/17 10:03 DLM [id number]) Physical Therapy Treatment Education Education Provided Precautions Weight Bearing Status Safety M7 PT-IP Assessment and Plan Start: 11/17/17 12:53 Freq: Status: Active Protocol: Document 11/18/17 09:49 DLM (Rec: 11/18/17 10:03 DLM [id number]) PT Summary Assessment and Plan Summary Progress Towards Goals Progressing Toward Goals Slow Progress due to Activity Tolerance Assessment Summary He continues to show an unsteady gait pattern and needs a small based quad cane. Even with the cane is gait is short/shuffling steps that make him high risk for tripping. He will need help at home but can not verbalize a plan to get help. It is unclear how much help his can provide since she had a recent fall with hip injury. He is able to get up and down steps but will need assistance to get in/out of the house. Frequency of Treatment Frequency Of Treatment Twice a Day Treatment Plan Other Recommendations and Next Treatment continue gait training to Focus decrease his fall risk Recommendations To Nursing Amount of Assist Needed 1 Person Assist Discharge Recommendations PT Discharge Recommendations Home with 24/ Assist Home Health Equipment Needed for Home Before quad cane Discharge
--- NOTE | 2017-11-18 11:11 | PC.NURSE ---
pt preparing for discharge - showered and saline locks removed- he does report having assist at home for 1 week and is accepting of home helath services after conferencing with Narda of case mgmnt- skin intact voiding well still in need of bm but feels that he can accomplish that in his own home= MD aware and concerned
--- NOTE | 2017-11-18 13:11 | CM.DPC ---
DCP: continued: met with pt again to followup on d/c plan. Dr. Arce was here and did ok him for d/c to home today. Conferred with PT Flavia, who saw pt today, DENIS Andres and then met with pt. He was up, dressed, showered and stated he felt much better. Sling in place. Pt confirms that his son will be here early afternoon after he takes Mary Anne to the doctor. He says his son will spend the day but plans to go home this evening. He says that his brother in law Velasquez and Velasquez's (in a w/c) have been visiting and will be staying at least the rest of the week. He says he expects Velasquez will be of good help to him and that Velasquez will be the farm truck driver in the group. HHS discussed and he is readily agreeable to RN/PT/OT/ELECTRICAL TROUBLESHOOTER/[employer] [facility] [employer]. Choice list: given Decision: [facility] Referral: [facility] who accepts and RN can go out tomorrow. Oksana aware that Dr. Arce did not sign the Face/Face and she states she will obtain this directly from him later this week. HH orders, Face/Face completed minus signature and clinicals are being faxed to [facility] now by [facility]. Pt plans to pick up man the cane recommended by PT at [facility] PT Flavia says she called and they are in stock there.. Pt is provided with resources for private caregiver agencies. Accepts these but says I think between Velasquez and the home health services I will be ok. Brief discussion re pain medications and pt's alcohol use. Pt says he is very aware of the dangers, has talked about this with Dr. Arce and says I do not plan to use alcohol when I get home. Pt also notes, I could have when I went overboard. I guess I am getting another chance at life. Offered to go over the plans for home with son when he arrives. Pt said he would call if needed but since his son will not be very involved he did not think it necessary.
== END 2017-11-18 13:15 | disposition home health service (06) | DRG 310 ==
LOC: ED 15:34 → ICU 19:15
PROVIDERS: Internal Medicine; Orthopaedic Surgery Foot and Ankle Surgery; Admitting Provider Family Medicine; Emergency Provider Emergency Medicine; Family Provider Family Medicine; PCP Family Medicine; Visit Provider Family Medicine
PROC: 0PSCXZZ Reposition Right Humeral Head, External Approach (ICD-10-PCS; principal; 2017-11-16 09:15)
DX: I48.91 Unspecified atrial fibrillation (principal); S43.014A Anterior dislocation of right humerus, initial encounter; I25.10 Atherosclerotic heart disease of native coronary artery without angina pectoris; Z95.1 Presence of aortocoronary bypass graft; Z79.01 Long term (current) use of anticoagulants; K22.2 Esophageal obstruction; I10 Essential (primary) hypertension; M10.9 Gout, unspecified; Z87.891 Personal history of nicotine dependence; E78.5 Hyperlipidemia, unspecified; E87.6 Hypokalemia; E83.42 Hypomagnesemia; F10.20 Alcohol dependence, uncomplicated
CPT/HCPCS: 23655; 36415; 36591; 71045; 73030; 76000; 80048; 80053; 82550; 82553; 83690; 83735; 84132; 84443; 84484; 85025; 85610; 87797; 92960; 93005; 93010; 93041; 94770; 96361; 96365; 96366; 96375; 96376; 97116; 97162; 97530; 99152; 99285; C9113; J1170; J2250; J2704; J3010; J3480

== ENCOUNTER → 2017-11-22 12:37 | Outpatient (CLI) | payer MEDICARE, SELFPAY ==
[2017-11-16 22:49] VITALS: BMI 34.7
[2017-11-22 14:08] LABS: Hematocrit 34.4 % (41-53); Hemoglobin 11.6 g/dL (13.5-17.5); Mean Corpuscular HGB Conc 33.7 % (30-36); Mean Corpuscular Hemoglobin 33.2 PG (26-34); Mean Corpuscular Volume 98.5 fL (80-100); Platelet Count 299 X10^3/uL (150-400); Red Blood Cell Count 3.49 X10^6/uL (4.5-5.9); Red Cell Distribution Width 14.1 % (11.6-14.8); White Blood Cell Count 10.5 X10^3/uL (4.5-11.0)
[2017-11-22 14:30] LABS: Alanine Aminotransferase 28 IU/L (21-72); Albumin Globulin Ratio 1.4 (1.0-2.8); Alkaline Phosphatase 44 U/L (38-126); Aspartate Aminotransferase 29 IU/L (17-59); BUN Creatinine Ratio 18.3 (6-22); Bilirubin Total 1.5 mg/dL (0.2-1.3); Blood Urea Nitrogen 11 mg/dL (9-20); Calcium 9.1 mg/dL (8.4-10.2); Carbon Dioxide 29 mmol/L (22-32); Chloride 100 mmol/L (98-107); Estimated Glomerular Filt Rate > 60.0 mL/min (>60); Globulin 2.9 g/dL (1.7-4.1); Glucose 97 mg/dL (80-110); HEMOLYSIS < 15 (0-50); Magnesium 2.3 mg/dL (1.6-2.3); Potassium 3.7 mmol/L (3.4-5.1); Sodium 139 mmol/L (137-145); Total Protein 6.9 g/dL (6.3-8.2)
[2017-11-22 14:59] LABS: TSH w/ Reflex to FT4 1.73 uIU/mL (0.47-4.68)
== END ==
PROVIDERS: PCP Family Medicine; Visit Provider Internal Medicine Cardiovascular Disease
DX: N40.1 Benign prostatic hyperplasia with lower urinary tract symptoms (principal); I10 Essential (primary) hypertension; I48.91 Unspecified atrial fibrillation; I48.0 Paroxysmal atrial fibrillation
CPT/HCPCS: 36415; 80053; 83735; 84443; 85027; G0103

== ENCOUNTER 2017-12-12 12:18 | Emergency (ER) | payer MEDICARE, SELFPAY ==
[2017-11-16 22:49] VITALS: BMI 34.7
[2017-12-12] VITALS (18 sets, daily range): BP systolic 94–128; BP diastolic 62–85; PULSE 67–138; RESP 11–24; TEMP 36.9; O2SAT 93–100; BMI 36.3
--- NOTE | 2017-12-12 12:22 | ED_ITS ---
HPI - Arrhythmia/Palpitations General Chief Complaint: Arrhythmia/Palpitations Stated Complaint: Afib with RVR Time Seen by Provider: 12/12/17 12:26 Source: patient Mode of arrival: ambulatory Limitations: no limitations History of Present Illness HPI narrative: The patient is a 77-year-old male with history of AFib presenting with AFib and RVR. He asked was seen here 11/16/2017 and discharged on 11/18/2017 for AFib with RVR and a right shoulder dislocation. The states they tried to cardiovert him on the however it did not work. He remained in AFib but rate controlled when he was discharged. He was seen by Dr. Greer of thought to try cardioversion again however waiting for of Coumadin to be therapeutic. Today his heart rate sped up and he has chest discomfort or shortness of breath. He received Cardizem 20 mg by EMS. MD complaint: rapid heart beat and heart racing Related Data Home Medications Medication Instructions Recorded Confirmed atorvastatin [Lipitor] 40 mg PO DAILY 11/16/17 12/12/17 omeprazole 10 mg PO DAILY 11/16/17 12/12/17 warfarin [Coumadin] 2.5 mg PO 5XW 11/16/17 12/12/17 warfarin [Coumadin] 5 mg PO 2XW 11/16/17 12/12/17 allopurinol 300 mg PO DAILY 12/12/17 12/12/17 metoprolol succinate 50 mg PO BID 12/12/17 12/12/17 tamsulosin 1 cap PO QPM 12/12/17 12/12/17 Allergies Allergy/AdvReac Type Severity Reaction Status Date / Time No Known Drug Allergies Allergy Verified 11/16/17 18:35 Review of Systems Review of Systems All systems reviewed & are unremarkable except as noted in HPI and below Constitutional Denies chills, Denies fever(s), Denies lethargy and Denies weakness ENT Ears, Nose, Mouth, and Throat: Denies vertigo Cardiovascular Reports as per HPI Respiratory Reports as per HPI, Denies cough, Denies excessive phlegm production and Denies pain on inspiration Gastrointestinal Gastrointestinal: Denies abdominal pain, Denies change in bowel habits, Denies diarrhea, Denies nausea and Denies vomiting Musculoskeletal Reports as per HPI and Reports limited range of motion (Of right shoulder) Integumentary/Breasts Denies pruritus, Denies erythema, Denies rash and Denies wounds Neurologic Denies confusion, Denies vertigo, Denies focal weakness and Denies weakness Psychiatric Denies confusion PFSH Medical History Atrial fibrillation (Acute) CAD (coronary artery disease) (Acute) HTN (hypertension) (Acute) Hyperlipidemia (Acute) Surgical History Hx of CABG (Acute) Social History household members: spouse Smoking Status: Unknown if ever smoked alcohol intake: current Exam Initial Vital Signs Initial Vital Signs: Vital Signs Temperature 98.4 F 12/12/17 12:18 Pulse Rate 125 H 12/12/17 12:18 Respiratory Rate 15 12/12/17 12:18 Blood Pressure 117/71 12/12/17 12:18 Pulse Oximetry 94 12/12/17 12:18 GENERAL: Alert elderly male no acute distress HEENT: Head atraumatic,EOMI, pupils reactive, face symmetric, CARDIOVASCULAR: Tachycardic irregularly irregular RESPIRATORY: Breath sounds equal bilaterally, no wheezes rales or rhonchi. ABDOMEN: Soft, nontender. Normoactive bowel sounds all 4 quadrants. No guarding or rebound. EXTREMITIES: Normal range of motion, no clubbing or edema. Neurovascularly intact. Right shoulder in place NEUROLOGICAL: Alert and oriented x4. Normal speech Cranial nerves II through XII grossly intact. SKIN: Warm, dry, no laceration, no petechiae, no rashes or lesions. Course Orders Ordered: ED Orders 12/12/17 12:20 Complete Blood Count AUTO DIFF Stat Comprehensive Metabolic Panel Stat Magnesium Stat Partial Thromboplastin Time Stat Prothrombin Time INR Stat Troponin & CK Cardiac Panel Stat 12/12/17 12:29 XR chest 1V Stat Sodium Chloride (Normal Saline 0.9%) 1,000 mls @ 150 mls/hr IV CONT TYSON Last Admin: 12/12/17 12:38 Dose: 150 mls/hr Diltiazem HCl 125 mg/ Dextrose 125 mls @ 5 mls/hr IV TITRATE TYSON; Protocol Last Titration: 12/12/17 14:55 Dose: 0 mg/hr, 0 mls/hr Titration: 12/12/17 14:51 Dose: 12.5 mg/hr, 12.5 mls/hr Titration: 12/12/17 14:41 Dose: 15 mg/hr, 15 mls/hr Titration: 12/12/17 13:53 Dose: 10 mg/hr, 10 mls/hr Titration: 12/12/17 13:34 Dose: 7.5 mg/hr, 7.5 mls/hr Admin: 12/12/17 12:49 Dose: 5 mg/hr, 5 mls/hr Discontinued Medications Metoprolol Tartrate (Lopressor) 5 mg IV NOW ONE Stop: 12/12/17 15:10 Last Admin: 12/12/17 15:11 Dose: 5 mg Vital Signs - 8 hr 12/12/17 12:18 12/12/17 12:21 12/12/17 12:47 Temperature 98.4 F Pulse Rate 125 H 78 114 H Respiratory Rate 15 15 Blood Pressure 117/71 Blood Pressure [Left Arm] 117/71 101/66 Pulse Oximetry 94 93 94 12/12/17 13:18 12/12/17 13:33 12/12/17 13:51 Temperature Pulse Rate 83 138 H 124 H Respiratory Rate 15 15 15 Blood Pressure Blood Pressure [Left Arm] 112/73 101/65 108/62 Pulse Oximetry 96 97 97 12/12/17 14:23 12/12/17 14:52 12/12/17 15:33 Temperature Pulse Rate 118 H 138 H 109 H Respiratory Rate 14 15 14 Blood Pressure Blood Pressure [Left Arm] 105/72 94/63 117/84 Pulse Oximetry 97 98 98 12/12/17 15:56 12/12/17 16:25 12/12/17 17:28 Temperature Pulse Rate 71 114 H 124 H Respiratory Rate 13 15 11 L Blood Pressure Blood Pressure [Left Arm] 115/81 120/70 123/71 Pulse Oximetry 98 98 97 12/12/17 17:50 Temperature Pulse Rate 136 H Respiratory Rate 18 Blood Pressure Blood Pressure [Left Arm] 118/77 Pulse Oximetry 100 MDM - Arrhythmia/Palpitations Medical Records Attestation: I reviewed the patient's medical records. Lab Data Attestation: I reviewed the patient's lab results. Result diagrams: 12/12/17 12:20 12/12/17 12:20 Lab Results 12/12/17 12/12/17 12/12/17 Range/Units 12:20 12:20 12:20 WBC 7.0 (4.5-11.0) X10^3/uL RBC 4.18 L (4.5-5.9) X10^6/uL Hgb 13.6 (13.5-17.5) g/dL Hct 40.7 L (41-53) % MCV 97.4 (80-100) fL MCH 32.6 (26-34) PG MCHC 33.4 (30-36) % RDW 13.6 (11.6-14.8) % Plt Count 242 (150-400) X10^3/uL Neut % (Auto) 69.4 (50-75) % Lymph % (Auto) 21.1 L (25-40) % Coal % (Auto) 7.7 (3-14) % Eos % (Auto) 1.1 L (2-4) % Baso % (Auto) 0.7 (0-2) % Neut # (Auto) 4800 (5822-5923) /uL PT 28.0 H (10.1-12.7) SECONDS INR 2.5 H (0.9-1.3) APTT 60 H (26.4-36.2) SECONDS Sodium 143 (137-145) mmol/L Potassium 3.7 (3.4-5.1) mmol/L Chloride 104 (98-107) mmol/L Carbon Dioxide 29 (22-32) mmol/L BUN 9 (9-20) mg/dL Creatinine 0.50 L (0.66-1.25) mg/dL Estimated GFR > 60.0 (>60) mL/min BUN/Creatinine Ratio 18.0 (6-22) Glucose 172 H (80-110) mg/dL Calcium 9.4 (8.4-10.2) mg/dL Magnesium 1.9 (1.6-2.3) mg/dL Total Bilirubin 0.7 (0.2-1.3) mg/dL AST 22 (17-59) IU/L ALT 20 L (21-72) IU/L Alkaline Phosphatase 60 (38-126) U/L Total Creatine Kinase 61 (55-170) U/L Troponin I < 0.012 (0.01-0.034) ng/mL Total Protein 7.2 (6.3-8.2) g/dL Albumin 4.3 (3.5-5.0) g/dL Globulin 2.9 (1.7-4.1) g/dL Albumin/Globulin Ratio 1.5 (1.0-2.8) Imaging Data Chest x-ray: Radiologist's impression: PROCEDURE: XR CHEST 1V INDICATIONS: chest pain TECHNIQUE: One view of the chest was acquired. COMPARISON: [facility], , XR CHEST 1V, 11/16/2017, 16:25. FINDINGS: Surgical changes and devices: Sternotomy wires and CABG clips. Lungs and pleura: No pleural effusions or pneumothorax. Low lung volumes and elevation of the right hemidiaphragm. Mediastinum: Mediastinal contours appear normal. Heart size is normal. Bones and chest wall: No suspicious bony lesions. Overlying soft tissues appear unremarkable. IMPRESSION: Low lung volumes and scattered atelectasis. No acute disease. Dictated by: Isra Stauffer M.D. on 12/12/2017 at 12:57 ECG Data Attestation: I personally reviewed and interpreted this ECG as follows: Prior ECG tracings: available for review Interpretation: AFib rate [address] changes similar to previous EKGs MDM Narrative Medical decision making narrative: 2:[address] Adam recommends rate control of as best as possible. A knotted digoxin her amiodarone candidate. Does not recommend cardioversion he has been subtherapeutic on his INR. He may require a [place] and cardioversion which he then recommend the patient go to [facility]. He is aware that [facility] is close on beds. However they do accept the patient no [facility]. 4:[address] No hospitalist over at [facility] he happily accepts patient. Patient responded much better to Lopressor than he did to Cardizem. However he still had a heart rate of 120. Discharge Plan Departure Patient Disposition: [facility] Clinical Impression: Atrial fibrillation with RVR Prescriptions: No Action warfarin [Coumadin] 2.5 mg Tablet 2.5 mg PO 5XW RF: 0 atorvastatin [Lipitor] 40 mg Tablet 40 mg PO DAILY RF: 0 omeprazole 10 mg Capsule,Delayed Release(Dr/Ec) 10 mg PO DAILY RF: 0 warfarin [Coumadin] 5 mg Tablet 5 mg PO 2XW RF: 0 tamsulosin 0.4 mg capsule 1 cap PO QPM RF: 0 allopurinol 300 mg tablet 300 mg PO DAILY RF: 0 metoprolol succinate 100 mg tablet extended release 24 hr 50 mg PO BID RF: 0
--- NOTE | 2017-12-12 12:29 | DI.RAD.S_ITS ---
PROCEDURE: XR CHEST 1V INDICATIONS: chest pain TECHNIQUE: One view of the chest was acquired. COMPARISON: [facility], CR, XR CHEST 1V, 11/16/2017, 16:25. FINDINGS: Surgical changes and devices: Sternotomy wires and CABG clips. Lungs and pleura: No pleural effusions or pneumothorax. Low lung volumes and elevation of the right hemidiaphragm. Mediastinum: Mediastinal contours appear normal. Heart size is normal. Bones and chest wall: No suspicious bony lesions. Overlying soft tissues appear unremarkable. IMPRESSION: Low lung volumes and scattered atelectasis. No acute disease. Dictated by: Isra Stauffer M.D. on 12/12/2017 at 12:57 Approved by: Isra Stauffer M.D. on 12/12/2017 at 12:59
--- NOTE | 2017-12-12 12:30 | PC.NURSE ---
placed on 2l nc O2
[2017-12-12] MEDS: SODIUM CHLORIDE 0.9% 1,000 ML 150 ML IV (12:38)
[2017-12-12 12:40] LABS: Add Manual Diff / Slide Review NO; Basophils Percent Auto 0.7 % (0-2); Eosinophils Percent Auto 1.1 % (2-4); Hematocrit 40.7 % (41-53); Hemoglobin 13.6 g/dL (13.5-17.5); Lymphocytes Percent Auto 21.1 % (25-40); Mean Corpuscular HGB Conc 33.4 % (30-36); Mean Corpuscular Hemoglobin 32.6 PG (26-34); Mean Corpuscular Volume 97.4 fL (80-100); Monocytes Percent Auto 7.7 % (3-14); Neutrophils Absolute Auto 4800 /uL (3000-5900); Neutrophils Percent Auto 69.4 % (50-75); Platelet Count 242 X10^3/uL (150-400); Red Blood Cell Count 4.18 X10^6/uL (4.5-5.9); Red Cell Distribution Width 13.6 % (11.6-14.8)
[2017-12-12 12:41] LABS: INR 2.5 (0.9-1.3)
[2017-12-12 12:44] LABS: PTT Partial Thromboplastin Tim 60 SECONDS (26.4-36.2)
[2017-12-12] MEDS: dilTIAZem 125 MG in DEXTROSE 5 % IN WATER 100 ML IV (12:49)
[2017-12-12 12:53] LABS: Alanine Aminotransferase 20 IU/L (21-72); Albumin 4.3 g/dL (3.5-5.0); Albumin Globulin Ratio 1.5 (1.0-2.8); Alkaline Phosphatase 60 U/L (38-126); Aspartate Aminotransferase 22 IU/L (17-59); Bilirubin Total 0.7 mg/dL (0.2-1.3); Blood Urea Nitrogen 9 mg/dL (9-20); Calcium 9.4 mg/dL (8.4-10.2); Carbon Dioxide 29 mmol/L (22-32); Chloride 104 mmol/L (98-107); Creatine Kinase 61 U/L (55-170); Estimated Glomerular Filt Rate > 60.0 mL/min (>60); Globulin 2.9 g/dL (1.7-4.1); Glucose 172 mg/dL (80-110); HEMOLYSIS 15 (0-50); Magnesium 1.9 mg/dL (1.6-2.3); Potassium 3.7 mmol/L (3.4-5.1); Sodium 143 mmol/L (137-145); Total Protein 7.2 g/dL (6.3-8.2)
[2017-12-12 13:08] LABS: Troponin I < 0.012 ng/mL (0.01-0.034)
--- NOTE | 2017-12-12 14:51 | PC.NURSE ---
Drip decreased from 15 to 12.5 due to bp 94/63
--- NOTE | 2017-12-12 14:56 | PC.NURSE ---
stopped dilt drip as VO from Dr. Lott
[2017-12-12] MEDS: METOPROLOL TARTRATE 5 MG/5 ML INJ IV ×2 (15:11→18:01)
--- NOTE | 2017-12-12 16:18 | PC.NURSE ---
Called pts and she is told of transfer. Pt is now aware of same
--- NOTE | 2017-12-12 18:11 | PC.NURSE ---
Report to Jonas Iniguez RN at [facility]. [phone].
== END 2017-12-12 18:52 | disposition short-term general hospital (02) ==
PROVIDERS: Emergency Provider Emergency Medicine; Family Provider Family Medicine; PCP Family Medicine
DX: I48.91 Unspecified atrial fibrillation (principal)
CPT/HCPCS: 36591; 71045; 80053; 82550; 82553; 83735; 84484; 85025; 85610; 85730; 93005; 93010; 93041; 96365; 96366; 96375; 96376; 99285

== ENCOUNTER 2018-02-03 22:04 | Inpatient (IN) | payer MEDICARE, SELFPAY ==
[2017-11-16 22:49] VITALS: BMI 34.7
[2018-02-03 22:00] VITALS: BP 139/67; PULSE 80; RESP 23; O2SAT 92
--- NOTE | 2018-02-03 22:10 | DI.CT.S_ITS ---
PROCEDURE: CT HEAD/BRAIN WO CON INDICATIONS: fall down 8 stairs on coumadin etoh TECHNIQUE: Noncontrast 4.5 mm thick angled axial sections acquired from the foramen magnum to the vertex, with coronal and sagittal reformats. For radiation dose reduction, the following was used: automated exposure control, adjustment of mA and/or kV according to patient size. COMPARISON: [facility], CT, HEAD WITHOUT CONTRAST, 06/08/2014, 19:48. FINDINGS: Image quality: Excellent. CSF spaces: Basal cisterns are patent. No extra-axial fluid collections. The ventricles are symmetric in size and shape. Brain: No intracranial bleeds or masses. There is cerebral volume loss for age, with resultant ventricular and sulcal prominence. There are periventricular and deep white matter chronic small vessel ischemic changes. There is intracranial internal carotid artery atherosclerosis. Skull and face: Calvarium and visualized facial bones appear intact, without suspicious lesions. Right parietal scalp hematoma. Sinuses: Mild right maxillary sinus disease IMPRESSION: No acute intracranial process. Dictated by: Isra Stauffer M.D. on 02/04/2018 at 7:19 Approved by: Isra Stauffer M.D. on 02/04/2018 at 7:21
--- NOTE | 2018-02-03 22:11 | DI.CT.S_ITS ---
PROCEDURE: CT CERVICAL SPINE WO CON INDICATIONS: etoh fall on coumadin TECHNIQUE: Noncontrast 3 mm thick sections acquired from the skull base to the T4 level. Sagittal and coronal reformats were then constructed. For radiation dose reduction, the following was used: automated exposure control, adjustment of mA and/or kV according to patient size. COMPARISON: [facility], CR, XR SHOULDER RT MIN 2V, 02/03/2018, 21:49. FINDINGS: Image quality: Excellent. Bones: There are right first-fifth rib fractures at the costovertebral junctions Straightening of the normal cervical lordosis and diffuse endplate spurring and sclerosis. Moderate narrowing of the C4-C5 and C6-C7 disc space. Diffuse facet arthropathy. Soft tissues: Prevertebral soft tissues are normal in thickness. No paravertebral hematomas. No apical pneumothoraces. IMPRESSION: Multiple right rib fractures (ribs 1-5) at the costovertebral junctions. There is also anterior bilateral first rib, and anterior right second rib, fractures. Findings were personally telephoned and discussed with Dr. Washington, the attending physician, on 0857 hours 02/04/18. No cervical spine fracture. Degenerative changes as above. Dictated by: Isra Stauffer M.D. on 02/04/2018 at 7:46 Approved by: Isra Stauffer M.D. on 02/04/2018 at 8:57
--- NOTE | 2018-02-03 22:13 | DI.RAD.S_ITS ---
PROCEDURE: XR SHOULDER RT MIN 2V INDICATIONS: pain fall history of dislocation TECHNIQUE: 2 views of the shoulder were acquired. COMPARISON: [facility], CR, XR SHOULDER RT 1V, 11/16/2017, 21:49. [facility], CR, XR SHOULDER 2+ VIEWS RIGHT, 12/03/2017, 13:49. [facility], CR, XR SHOULDER 2+ VIEWS RIGHT, 01/02/2018, 13:23. [facility], MR, MR SHOULDER RIGHT WITHOUT CONTRAST, 01/12/2018, 10:31. [facility], CR, XR SHOULDER RT MIN 2V, 11/16/2017, 16:20. FINDINGS: Bones: No acute fractures or dislocations. There is development of calcifications over humeral head. There is mild acromioclavicular and glenohumeral joint degeneration. No suspicious bony lesions. Visualized ribs appear intact. Soft tissues: No suspicious soft tissue calcifications. IMPRESSION: 1. No acute fracture or dislocation. 2. Development of calcifications over humeral head likely secondary to old trauma or calcific tendinitis. 3. Mild acromioclavicular and glenohumeral joint degeneration. Dictated by: Stella Johnston M.D. on 02/04/2018 at 8:16 Approved by: Stella Johnston M.D. on 02/04/2018 at 8:23
--- NOTE | 2018-02-03 22:13 | ED.FALL ---
HPI - Fall General Chief Complaint: Trauma Stated Complaint: Fall Down Stairs on blood thinners Time Seen by Provider: 02/03/18 22:08 Source: patient, family and EMS Mode of arrival: EMS History of Present Illness HPI Narrative: Patient is a 77-year-old male who presents with closed head injury after ground level fall. He is unsure exactly how he fell but he did fall down 829 [address] steps. His states that she heard him fall and noted he was having difficulty breathing. He was not responsive at that time. Unknown how long he was out for he is awake and alert for EMS. He is noted to have right-sided scalp laceration and bleeding. He does take Coumadin for AFib. He also has been rehabbing a right shoulder dislocation and fracture. Chronically complains of right shoulder pain for which he takes hydrocodone. He also admits to drinking 1 gin this evening. MD complaint: fall Onset (ago): minute(s) Fall from: standing Place fall occurred: home Loss of consciousness: yes Prolonged down time: no Related Data Home Medications Medication Instructions Recorded Confirmed atorvastatin [Lipitor] 40 mg PO DAILY 11/16/17 02/04/18 omeprazole 10 mg PO DAILY 11/16/17 02/04/18 warfarin [Coumadin] 2.5 mg PO 5XW 11/16/17 02/04/18 warfarin [Coumadin] 5 mg PO 2XW 11/16/17 02/04/18 allopurinol 300 mg PO DAILY 12/12/17 02/04/18 metoprolol succinate 50 mg PO BID 12/12/17 02/04/18 tamsulosin 1 cap PO QPM 12/12/17 02/04/18 desoximetasone 1 applic TOPICAL DAILY 02/04/18 02/04/18 hydrocodone-acetaminophen 2 tab PO Q4H PRN 02/04/18 02/04/18 lisinopril 5 mg PO DAILY 02/04/18 02/04/18 Allergies Allergy/AdvReac Type Severity Reaction Status Date / Time No Known Drug Allergies Allergy Verified 11/16/17 18:35 Review of Systems Constitutional Reports frequent falls, Denies lethargy and Denies malaise Eyes Denies blurry vision, Denies change in vision and Denies diplopia ENT Ears, Nose, Mouth, and Throat: Denies vertigo and Denies dizziness Cardiovascular Denies chest pain, Denies rapid heart rate, Denies dyspnea and Denies dyspnea on exertion Respiratory Denies cough, Denies dyspnea, Denies dyspnea on exertion and Denies wheezing Gastrointestinal Gastrointestinal: Denies abdominal pain, Denies change in bowel habits, Denies diarrhea, Denies nausea and Denies vomiting Musculoskeletal Denies back pain, Denies muscle weakness, Denies numbness and Denies tingling Integumentary/Breasts Reports as per HPI Neurologic Denies vertigo, Denies dizziness, Reports frequent falls, Denies numbness and Denies tingling Allergic/Immunologic Denies wheezing Exam Initial Vital Signs Initial Vital Signs: Vital Signs Pulse Rate 80 02/03/18 22:00 Respiratory Rate 23 02/03/18 22:00 Blood Pressure 139/67 02/03/18 22:00 Pulse Oximetry 92 02/03/18 22:00 Const General: cooperative and comfortable Nutritional Appearance: overweight Orientation: alert, awake and oriented x3 HENMT Head: laceration (Right temporal) Eyes General: appearance normal, both eyes and all related structures Neck Neck: normal visual inspection, trachea midline and other (c-collar placed in ed) Chest Chest: normal inspection of the chest Resp Effort & Inspection: normal respiratory effort, able to speak in complete sentences, no respiratory distress and no use of accessory muscles Auscultation: clear to auscultation bilaterally, no rales, no rhonchi and no wheezes Cardio Rate: regular rate Rhythm: abnormal rhythm irregularly irregular Heart Sounds: no click, no gallops, no murmurs and no rubs Pulses: normal peripheral pulses Neuro General: alert, awake and oriented x3 Cranial Nerves: CN's II-XI intact bilaterally Speech: speech normal Motor: muscle tone normal throughout [facility] Medical History Atrial fibrillation (Acute) CAD (coronary artery disease) (Acute) HTN (hypertension) (Acute) Hyperlipidemia (Acute) Surgical History Hx of CABG (Acute) Social History household members: spouse Smoking Status: Unknown if ever smoked alcohol intake: current Procedures Laceration Repair Laceration 1: Site: scalp Side (If applicable): right Size (cm): 3 Description: linear Depth: simple, single layer Pre-repair: wound explored and irrigated extensively Skin layer closed with: other (immanuel) Number of sutures: 3 Course Orders Ordered: ED Orders 02/03/18 22:36 Complete Blood Count AUTO DIFF Stat Comprehensive Metabolic Panel Stat Prothrombin Time INR Stat Troponin & CK Cardiac Panel Stat 02/04/18 02:35 Consult to Physical Therapy Evaluate & Treat Consult to Physician Routine 02/04/18 02:40 MRSA PCR Stat Hydrocodone Bitart/Acetaminophen ([place] 5/325) 1 tab PO Q4HR PRN PRN Reason: Pain, Moderate (4-6) Last Admin: 02/04/18 05:39 Dose: 1 tab Discontinued Medications Acetaminophen (Tylenol) 650 mg PO NOW ONE Stop: 02/03/18 23:31 Last Admin: 02/03/18 23:41 Dose: 650 mg Hydrocodone Bitart/Acetaminophen ([place] 5/325) 2 tab PO NOW ONE Stop: 02/04/18 01:45 Last Admin: 02/04/18 02:14 Dose: 2 tab Sodium Chloride (Normal Saline 0.9%) 1,000 mls @ 150 mls/hr IV BOLUS ONE Stop: 02/04/18 04:49 Last Admin: 02/03/18 23:41 Dose: 150 mls/hr Vital Signs - 8 hr 02/03/18 23:40 02/03/18 23:55 02/04/18 00:25 Temperature Pulse Rate 90 92 H 92 H Respiratory Rate 19 15 20 Blood Pressure Blood Pressure [Left Arm] 137/75 127/61 124/60 Pulse Oximetry 92 92 93 02/04/18 02:30 02/04/18 02:43 02/04/18 07:32 Temperature 98.4 F 99.1 F 98 F Pulse Rate 77 83 99 H Respiratory Rate 21 18 17 Blood Pressure 148/112 H 156/94 H Blood Pressure [Left Arm] 131/71 Pulse Oximetry 95 95 98 MDM - Fall Lab Data Attestation: I reviewed the patient's lab results. Result diagrams: 02/03/18 22:36 02/03/18 22:36 Lab Results 02/03/18 02/03/18 02/03/18 Range/Units 22:36 22:36 22:36 WBC 10.3 (4.5-11.0) X10^3/uL RBC 4.48 L (4.5-5.9) X10^6/uL Hgb 14.5 (13.5-17.5) g/dL Hct 42.8 (41-53) % MCV 95.6 (80-100) fL MCH 32.3 (26-34) PG MCHC 33.8 (30-36) % RDW 14.1 (11.6-14.8) % Plt Count 218 (150-400) X10^3/uL Neut % (Auto) 57.4 (50-75) % Lymph % (Auto) 32.7 (25-40) % [place] % (Auto) 7.9 (3-14) % Eos % (Auto) 1.3 L (2-4) % Baso % (Auto) 0.7 (0-2) % Neut # (Auto) 5900 (5939-7435) /uL PT 29.6 H (10.1-12.7) SECONDS INR 2.7 H (0.9-1.3) Sodium 142 (137-145) mmol/L Potassium 3.5 (3.4-5.1) mmol/L Chloride 102 (98-107) mmol/L Carbon Dioxide 29 (22-32) mmol/L BUN 18 (9-20) mg/dL Creatinine 0.70 (0.66-1.25) mg/dL Estimated GFR > 60.0 (>60) mL/min BUN/Creatinine Ratio 25.7 H (6-22) Glucose 109 (80-110) mg/dL Calcium 8.9 (8.4-10.2) mg/dL Total Bilirubin 0.4 (0.2-1.3) mg/dL AST 76 H (17-59) IU/L ALT 53 (21-72) IU/L Alkaline Phosphatase 43 (38-126) U/L Total Creatine Kinase 104 (55-170) U/L CK-MB (CK-2) 1.47 (<2.37) ng/mL CK-MB (CK-2) Rel Index 1.4 L (1.5-5.0) % Troponin I < 0.012 (0.01-0.034) ng/mL Total Protein 7.1 (6.3-8.2) g/dL Albumin 4.4 (3.5-5.0) g/dL Globulin 2.7 (1.7-4.1) g/dL Albumin/Globulin Ratio 1.6 (1.0-2.8) Nasal Screen MRSA (PCR) (Negative) 02/04/18 Range/Units 02:40 WBC (4.5-11.0) X10^3/uL RBC (4.5-5.9) X10^6/uL Hgb (13.5-17.5) g/dL Hct (41-53) % MCV (80-100) fL MCH (26-34) PG MCHC (30-36) % RDW (11.6-14.8) % Plt Count (150-400) X10^3/uL Neut % (Auto) (50-75) % Lymph % (Auto) (25-40) % [place] % (Auto) (3-14) % Eos % (Auto) (2-4) % Baso % (Auto) (0-2) % Neut # (Auto) (9436-3513) /uL PT (10.1-12.7) SECONDS INR (0.9-1.3) Sodium (137-145) mmol/L Potassium (3.4-5.1) mmol/L Chloride (98-107) mmol/L Carbon Dioxide (22-32) mmol/L BUN (9-20) mg/dL Creatinine (0.66-1.25) mg/dL Estimated GFR (>60) mL/min BUN/Creatinine Ratio (6-22) Glucose (80-110) mg/dL Calcium (8.4-10.2) mg/dL Total Bilirubin (0.2-1.3) mg/dL AST (17-59) IU/L ALT (21-72) IU/L Alkaline Phosphatase (38-126) U/L Total Creatine Kinase (55-170) U/L CK-MB (CK-2) (<2.37) ng/mL CK-MB (CK-2) Rel Index (1.5-5.0) % Troponin I (0.01-0.034) ng/mL Total Protein (6.3-8.2) g/dL Albumin (3.5-5.0) g/dL Globulin (1.7-4.1) g/dL Albumin/Globulin Ratio (1.0-2.8) Nasal Screen MRSA (PCR) Negative for mrsa (Negative) Imaging Data 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 She is even more nervous to take him home. Patient had ambulation trial in the ED he was able to ambulate some, however he was very unsteady on his feet required 2 person assist and did not make it far. Dr. Arce updated on patient's symptoms and test results and happily accepts patient for observation Discharge Plan Departure Patient Disposition: Admitted as Observation Clinical Impression: Head injury, Laceration of scalp, Chronic pain in right shoulder Discharge Date/Time: 02/04/18 02:30 Interventions: ED Discharge Assessment Last Done: 02/04/18 02:44 Admit Date/Time: 02/04/18 01:58 Admit Provider: Enrike Arce
[2018-02-03 22:39] LABS: Add Manual Diff / Slide Review NO; Basophils Percent Auto 0.7 % (0-2); Eosinophils Percent Auto 1.3 % (2-4); Hematocrit 42.8 % (41-53); Hemoglobin 14.5 g/dL (13.5-17.5); Lymphocytes Percent Auto 32.7 % (25-40); Mean Corpuscular HGB Conc 33.8 % (30-36); Mean Corpuscular Hemoglobin 32.3 PG (26-34); Mean Corpuscular Volume 95.6 fL (80-100); Monocytes Percent Auto 7.9 % (3-14); Neutrophils Absolute Auto 5900 /uL (3000-5900); Neutrophils Percent Auto 57.4 % (50-75); Platelet Count 218 X10^3/uL (150-400); Red Blood Cell Count 4.48 X10^6/uL (4.5-5.9); Red Cell Distribution Width 14.1 % (11.6-14.8); White Blood Cell Count 10.3 X10^3/uL (4.5-11.0)
[2018-02-03 22:41] LABS: INR 2.7 (0.9-1.3); Prothrombin Time 29.6 SECONDS (10.1-12.7)
[2018-02-03 22:46] LABS: Alanine Aminotransferase 53 IU/L (21-72); Albumin 4.4 g/dL (3.5-5.0); Albumin Globulin Ratio 1.6 (1.0-2.8); Alkaline Phosphatase 43 U/L (38-126); Aspartate Aminotransferase 76 IU/L (17-59); BUN Creatinine Ratio 25.7 (6-22); Bilirubin Total 0.4 mg/dL (0.2-1.3); Blood Urea Nitrogen 18 mg/dL (9-20); Calcium 8.9 mg/dL (8.4-10.2); Carbon Dioxide 29 mmol/L (22-32); Chloride 102 mmol/L (98-107); Creatine Kinase 104 U/L (55-170); Estimated Glomerular Filt Rate > 60.0 mL/min (>60); Globulin 2.7 g/dL (1.7-4.1); Glucose 109 mg/dL (80-110); HEMOLYSIS < 15 (0-50); Potassium 3.5 mmol/L (3.4-5.1); Sodium 142 mmol/L (137-145); Total Protein 7.1 g/dL (6.3-8.2)
[2018-02-03 22:57] LABS: Troponin I < 0.012 ng/mL (0.01-0.034)
[2018-02-03 23:02] LABS: CKMB % Relative Index 1.4 % (1.5-5.0); Creatine Kinase MB 1.47 ng/mL (<2.37)
[2018-02-03 23:40] VITALS: BP 137/75; PULSE 90; RESP 19; O2SAT 92
[2018-02-03] MEDS: ACETAMINOPHEN 325 MG TABLET 650 MG PO (23:41)
[2018-02-03] MEDS: SODIUM CHLORIDE 0.9% 1,000 ML 150 ML IV (23:41)
[2018-02-03 23:55] VITALS: BP 127/61; PULSE 92; RESP 15; O2SAT 92
[2018-02-04] VITALS (9 sets, daily range): BP systolic 124–160; BP diastolic 60–112; PULSE 77–99; RESP 14–22; TEMP 36.6–37.3; O2SAT 93–98; BMI 31.1
--- NOTE | 2018-02-04 00:39 | ED_ITS ---
HPI - Fall General Chief Complaint: Trauma Stated Complaint: Fall Down Stairs on blood thinners Time Seen by Provider: 02/03/18 22:08 Source: patient, family and EMS Mode of arrival: EMS History of Present Illness HPI Narrative: Patient is a 77-year-old male who presents with closed head injury after ground level fall. He is unsure exactly how he fell but he did fall down 829 [address] steps. His states that she heard him fall and noted he was having difficulty breathing. He was not responsive at that time. Unknown how long he was out for he is awake and alert for EMS. He is noted to have right-sided scalp laceration and bleeding. He does take Coumadin for AFib. He also has been rehabbing a right shoulder dislocation and fracture. Chronically complains of right shoulder pain for which he takes hydrocodone. He also admits to drinking 1 gin this evening. MD complaint: fall Onset (ago): minute(s) Fall from: standing Place fall occurred: home Loss of consciousness: yes Prolonged down time: no Related Data Home Medications Medication Instructions Recorded Confirmed atorvastatin [Lipitor] 40 mg PO DAILY 11/16/17 02/04/18 omeprazole 10 mg PO DAILY 11/16/17 02/04/18 warfarin [Coumadin] 2.5 mg PO 5XW 11/16/17 02/04/18 warfarin [Coumadin] 5 mg PO 2XW 11/16/17 02/04/18 allopurinol 300 mg PO DAILY 12/12/17 02/04/18 metoprolol succinate 50 mg PO BID 12/12/17 02/04/18 tamsulosin 1 cap PO QPM 12/12/17 02/04/18 desoximetasone 1 applic TOPICAL DAILY 02/04/18 02/04/18 hydrocodone-acetaminophen 2 tab PO Q4H PRN 02/04/18 02/04/18 lisinopril 5 mg PO DAILY 02/04/18 02/04/18 Allergies Allergy/AdvReac Type Severity Reaction Status Date / Time No Known Drug Allergies Allergy Verified 11/16/17 18:35 Review of Systems Constitutional Reports frequent falls, Denies lethargy and Denies malaise Eyes Denies blurry vision, Denies change in vision and Denies diplopia ENT Ears, Nose, Mouth, and Throat: Denies vertigo and Denies dizziness Cardiovascular Denies chest pain, Denies rapid heart rate, Denies dyspnea and Denies dyspnea on exertion Respiratory Denies cough, Denies dyspnea, Denies dyspnea on exertion and Denies wheezing Gastrointestinal Gastrointestinal: Denies abdominal pain, Denies change in bowel habits, Denies diarrhea, Denies nausea and Denies vomiting Musculoskeletal Denies back pain, Denies muscle weakness, Denies numbness and Denies tingling Integumentary/Breasts Reports as per HPI Neurologic Denies vertigo, Denies dizziness, Reports frequent falls, Denies numbness and Denies tingling Allergic/Immunologic Denies wheezing Exam Initial Vital Signs Initial Vital Signs: Vital Signs Pulse Rate 80 02/03/18 22:00 Respiratory Rate 23 02/03/18 22:00 Blood Pressure 139/67 02/03/18 22:00 Pulse Oximetry 92 02/03/18 22:00 Const General: cooperative and comfortable Nutritional Appearance: overweight Orientation: alert, awake and oriented x3 HENMT Head: laceration (Right temporal) Eyes General: appearance normal, both eyes and all related structures Neck Neck: normal visual inspection, trachea midline and other (c-collar placed in ed ) Chest Chest: normal inspection of the chest Resp Effort & Inspection: normal respiratory effort, able to speak in complete sentences, no respiratory distress and no use of accessory muscles Auscultation: clear to auscultation bilaterally, no rales, no rhonchi and no wheezes Cardio Rate: regular rate Rhythm: abnormal rhythm irregularly irregular Heart Sounds: no click, no gallops, no murmurs and no rubs Pulses: normal peripheral pulses Neuro General: alert, awake and oriented x3 Cranial Nerves: CN's II-XI intact bilaterally Speech: speech normal Motor: muscle tone normal throughout [facility] Medical History Atrial fibrillation (Acute) CAD (coronary artery disease) (Acute) HTN (hypertension) (Acute) Hyperlipidemia (Acute) Surgical History Hx of CABG (Acute) Social History household members: spouse Smoking Status: Unknown if ever smoked alcohol intake: current Procedures Laceration Repair Laceration 1: Site: scalp Side (If applicable): right Size (cm): 3 Description: linear Depth: simple, single layer Pre-repair: wound explored and irrigated extensively Skin layer closed with: other (immanuel) Number of sutures: 3 Course Orders Ordered: ED Orders 02/03/18 22:36 Complete Blood Count AUTO DIFF Stat Comprehensive Metabolic Panel Stat Prothrombin Time INR Stat Troponin & CK Cardiac Panel Stat 02/04/18 02:35 Consult to Physical Therapy Evaluate & Treat Consult to Physician Routine 02/04/18 02:40 MRSA PCR Stat Hydrocodone Bitart/Acetaminophen ([place] 5/325) 1 tab PO Q4HR PRN PRN Reason: Pain, Moderate (4-6) Last Admin: 02/04/18 05:39 Dose: 1 tab Discontinued Medications Acetaminophen (Tylenol) 650 mg PO NOW ONE Stop: 02/03/18 23:31 Last Admin: 02/03/18 23:41 Dose: 650 mg Hydrocodone Bitart/Acetaminophen ([place] 5/325) 2 tab PO NOW ONE Stop: 02/04/18 01:45 Last Admin: 02/04/18 02:14 Dose: 2 tab Sodium Chloride (Normal Saline 0.9%) 1,000 mls @ 150 mls/hr IV BOLUS ONE Stop: 02/04/18 04:49 Last Admin: 02/03/18 23:41 Dose: 150 mls/hr Vital Signs - 8 hr 02/03/18 23:40 02/03/18 23:55 02/04/18 00:25 Temperature Pulse Rate 90 92 H 92 H Respiratory Rate 19 15 20 Blood Pressure Blood Pressure [Left Arm] 137/75 127/61 124/60 Pulse Oximetry 92 92 93 02/04/18 02:30 02/04/18 02:43 02/04/18 07:32 Temperature 98.4 F 99.1 F 98 F Pulse Rate 77 83 99 H Respiratory Rate 21 18 17 Blood Pressure 148/112 H 156/94 H Blood Pressure [Left Arm] 131/71 Pulse Oximetry 95 95 98 MDM - Fall Lab Data Attestation: I reviewed the patient's lab results. Result diagrams: 02/03/18 22:36 02/03/18 22:36 Lab Results 02/03/18 02/03/18 02/03/18 Range/Units 22:36 22:36 22:36 WBC 10.3 (4.5-11.0) X10^3/uL RBC 4.48 L (4.5-5.9) X10^6/uL Hgb 14.5 (13.5-17.5) g/dL Hct 42.8 (41-53) % MCV 95.6 (80-100) fL MCH 32.3 (26-34) PG MCHC 33.8 (30-36) % RDW 14.1 (11.6-14.8) % Plt Count 218 (150-400) X10^3/uL Neut % (Auto) 57.4 (50-75) % Lymph % (Auto) 32.7 (25-40) % [place] % (Auto) 7.9 (3-14) % Eos % (Auto) 1.3 L (2-4) % Baso % (Auto) 0.7 (0-2) % Neut # (Auto) 5900 (8594-6039) /uL PT 29.6 H (10.1-12.7) SECONDS INR 2.7 H (0.9-1.3) Sodium 142 (137-145) mmol/L Potassium 3.5 (3.4-5.1) mmol/L Chloride 102 (98-107) mmol/L Carbon Dioxide 29 (22-32) mmol/L BUN 18 (9-20) mg/dL Creatinine 0.70 (0.66-1.25) mg/dL Estimated GFR > 60.0 (>60) mL/min BUN/Creatinine Ratio 25.7 H (6-22) Glucose 109 (80-110) mg/dL Calcium 8.9 (8.4-10.2) mg/dL Total Bilirubin 0.4 (0.2-1.3) mg/dL AST 76 H (17-59) IU/L ALT 53 (21-72) IU/L Alkaline Phosphatase 43 (38-126) U/L Total Creatine Kinase 104 (55-170) U/L CK-MB (CK-2) 1.47 (<2.37) ng/mL CK-MB (CK-2) Rel Index 1.4 L (1.5-5.0) % Troponin I < 0.012 (0.01-0.034) ng/mL Total Protein 7.1 (6.3-8.2) g/dL Albumin 4.4 (3.5-5.0) g/dL Globulin 2.7 (1.7-4.1) g/dL Albumin/Globulin Ratio 1.6 (1.0-2.8) Nasal Screen MRSA (PCR) (Negative) 02/04/18 Range/Units 02:40 WBC (4.5-11.0) X10^3/uL RBC (4.5-5.9) X10^6/uL Hgb (13.5-17.5) g/dL Hct (41-53) % MCV (80-100) fL MCH (26-34) PG MCHC (30-36) % RDW (11.6-14.8) % Plt Count (150-400) X10^3/uL Neut % (Auto) (50-75) % Lymph % (Auto) (25-40) % [place] % (Auto) (3-14) % Eos % (Auto) (2-4) % Baso % (Auto) (0-2) % Neut # (Auto) (8396-5846) /uL PT (10.1-12.7) SECONDS INR (0.9-1.3) Sodium (137-145) mmol/L Potassium (3.4-5.1) mmol/L Chloride (98-107) mmol/L Carbon Dioxide (22-32) mmol/L BUN (9-20) mg/dL Creatinine (0.66-1.25) mg/dL Estimated GFR (>60) mL/min BUN/Creatinine Ratio (6-22) Glucose (80-110) mg/dL Calcium (8.4-10.2) mg/dL Total Bilirubin (0.2-1.3) mg/dL AST (17-59) IU/L ALT (21-72) IU/L Alkaline Phosphatase (38-126) U/L Total Creatine Kinase (55-170) U/L CK-MB (CK-2) (<2.37) ng/mL CK-MB (CK-2) Rel Index (1.5-5.0) % Troponin I (0.01-0.034) ng/mL Total Protein (6.3-8.2) g/dL Albumin (3.5-5.0) g/dL Globulin (1.7-4.1) g/dL Albumin/Globulin Ratio (1.0-2.8) Nasal Screen MRSA (PCR) Negative for mrsa (Negative) Imaging Data 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 She is even more nervous to take him home. Patient had ambulation trial in the ED he was able to ambulate some, however he was very unsteady on his feet required 2 person assist and did not make it far. Dr. Arce updated on patient's symptoms and test results and happily accepts patient for observation Discharge Plan Departure Patient Disposition: Admitted as Observation Clinical Impression: Head injury, Laceration of scalp, Chronic pain in right shoulder Discharge Date/Time: 02/04/18 02:30 Interventions: ED Discharge Assessment Last Done: 02/04/18 02:44 Admit Date/Time: 02/04/18 01:58 Admit Provider: Enrike Arce
[2018-02-04] MEDS: HYDROCODONE/ACET 5/325 TABLET 2 TAB PO (02:14)
--- NOTE | 2018-02-04 02:42 | PC.NURSE ---
Dr Lott placed immanuel to head lac. Pt alert, cooperative. Medicated for pain with [place] per order.
[2018-02-04] MEDS: HYDROCODONE/ACET 5/325 TABLET 1 TAB PO (05:39)
[2018-02-04] MEDS: DOCUSATE 100 MG CAPSULE PO ×2 (08:53→21:11)
[2018-02-04] MEDS: OXYCODONE/ACETAMINOPHEN 5/325 TABLET 2 TAB PO ×3 (08:53→16:54)
[2018-02-04] MEDS: ENOXAPARIN 40 MG/0.4 ML SYRINGE SUBCUT (08:53)
[2018-02-04] MEDS: METOPROLOL ER 50 MG TABLET PO ×2 (08:54→21:11)
[2018-02-04] MEDS: ALLOPURINOL 300 MG TABLET PO (08:54)
[2018-02-04] MEDS: LISINOPRIL 5 MG TABLET PO (08:54)
[2018-02-04] MEDS: ATORVASTATIN 20 MG TABLET 40 MG PO (08:55)
--- NOTE | 2018-02-04 09:33 | PC.NURSE ---
Addendum entered by Isra Walsh R.N. 02/04/18 15:00: Pt stood to void but was unable despite feeling urgency. Bladder scan reveals 366 ML. IVF infusing. Will monitor. Original Note: Addendum entered by Isra Walsh R.N. 02/04/18 13:29: Dr. Arce on rounds this afternoon. Reported pt reports pain decreases to 3/10 with percocet. Reported pt with 2 small voids. PVR done showing 296 ML. Awaiting orders. Original Note: Dr. Arce on rounds. Reported pt with uncontrolled pain despite repositioning, distraction, and PRN pain med. Discussed home does of narcotics. Orders received for PRN percocet. Plan is for PT/OT to eval and tx and monitor. Call received from Dr. Washington [phone]- instructs to hold PT/OT in light of newly reported rib fxs on XRAY. Orders received to change from obs to inpatient acute care with telemetry.
[2018-02-04] MEDS: SODIUM CHLORIDE 0.9% FLUSH 10 ML IV (10:11)
--- NOTE | 2018-02-04 13:29 | OT.IP.TRT ---
Occupational Therapy Treatment Note M3 OT- IP Subjective and Pain Start: 02/04/18 14:08 Freq: Status: Active Protocol: Document 02/04/18 13:29 PJM (Rec: 02/04/18 14:09 PJM [id number]) OT- Subjective Occupational Therapy Visit Type Type Administrative Note Visit Start Time 13:29 Notes OT referral received. Pt on Hold today per Dr Washington due to new dx of R rib fx's 1-5 at costovertebral junction and anterior R rib fx's 1-2. Will attempt again in AM as medical status permits. No charge.
--- NOTE | 2018-02-04 13:33 | PM.HP.1 ---
History of Present Illness Date Patient Seen: 02/04/18 Time Patient Seen: 13:34 Chief complaint: Fall Down Stairs on blood thinners Narrative: Patient is a 77-year-old male well known to me who has been recovering from his right shoulder injury from previous fall. Overall had been doing better. Apparently had been drinking somewhere between 6 drinks in 1 gin unclear patient states 1 drink family says another. I have got most of the history from the . Apparently patient had no complaints and was going downstairs when he fell down 8 tiled stairs. Was completely unconscious at the base of the stairs when found him. Bleeding excessively. No other significant new changes or complaints. Patient awoke and seemed to know where he was. 911 was called he was brought into the emergency room. Where CT scan was read as negative and laceration on his right posterior scalp was repaired. Otherwise patient today as planned complaining of severe pain in his right back and upper chest. Hurts to take a deep breath hurts to breathe no other changes. No dizziness lightheadedness or other complaint or problem. Remembers the event going down the stairs does not remember what happened before that. No other significant change. states he is drinking somewhere between somewhat during the day which she is unclear but 4 glasses of wine and 2 scotches at night on average. Patient denies this. No other changes. Has been much more immobile since his shoulder injury. No other significant changes. Past medical history: Coronary artery disease CABG x4 2009 Atrial fibrillation History of esophageal stricture Hypercholesterolemia Hypertension Gout BPH History of alcohol abuse Tobacco abuse quit when he was 33 Past surgical history CABG x1 Habits alcohol as above no cigarettes or tobacco use no other drugs Family history. Father in his 80s no major alcohol issues Mother in her 30s unknown cause Sister multiple myeloma Sec sister of mental health issues. Social history lives with of 53 years does have supportive family in the area. They have 1 son in area and involved. Retired. Patient History Medical History Atrial fibrillation (Acute) CAD (coronary artery disease) (Acute) HTN (hypertension) (Acute) Hyperlipidemia (Acute) Surgical History Hx of CABG (Acute) Family & Social History Family History: Reviewed 02/04/18 by Enrike Arce MD Social History: household members spouse Prior Living Arrangements House Safety & Behavioral: Feels Safe in Current No Environment Been Physically Hurt or No Threatened By a Person Suicidal Ideation Description None Suicide Plan Description No Plan Tobacco & Substance use: Smoking Status Unknown if ever smoked alcohol intake current alcohol intake frequency 0-2 drinks per day Substance Use Type does not use Meds Home Medications Medication Instructions Recorded Confirmed Type atorvastatin [Lipitor] 40 mg PO DAILY 11/16/17 02/04/18 History omeprazole 10 mg PO DAILY 11/16/17 02/04/18 History warfarin [Coumadin] 2.5 mg PO 5XW 11/16/17 02/04/18 History warfarin [Coumadin] 5 mg PO 2XW 11/16/17 02/04/18 History allopurinol 300 mg PO DAILY 12/12/17 02/04/18 History metoprolol succinate 50 mg PO BID 12/12/17 02/04/18 History tamsulosin 1 cap PO QPM 12/12/17 02/04/18 History desoximetasone 1 applic TOPICAL DAILY 02/04/18 02/04/18 History hydrocodone-acetaminophen 2 tab PO Q4H PRN 02/04/18 02/04/18 History lisinopril 5 mg PO DAILY 02/04/18 02/04/18 History Allergies Allergy/AdvReac Type Severity Reaction Status Date / Time No Known Drug Allergies Allergy Verified 11/16/17 18:35 Review of Systems Review of Systems All systems reviewed & are unremarkable except as noted in HPI and below Exam Vital Signs (past 8 hours): - 02/04/18 07:32 02/04/18 08:00 02/04/18 12:00 Temperature 98 F 98.5 F Pulse Rate 99 H 88 Respiratory Rate 17 14 Blood Pressure 156/94 H 146/62 H Pulse Oximetry 98 96 98 Oxygen Delivery Method Room Air Oxygen Flow Rate 0 Narrative Exam Narrative: Alert elderly male sitting in bed in no acute distress head shows repaired laceration right side no crepitus or step-off some tenderness to palpation. Neck is full range of motion nontender. Clavicles appear normal is got marked tenderness in the anterior chest wall with no step-off or crepitus that I can repair. Lungs are clear but shallow breathing heart regular rate and rhythm without murmurs clicks rubs or gallops abdomen is soft positive bowel sounds nontender extremities marked shoulder pain on the right side but otherwise no changes. Neurologic exam he is slightly slow in his discussion but otherwise completely normal. Emotionally appears normal Objective Labs Result Diagrams: 02/03/18 22:36 02/03/18 22:36 Labs: Laboratory Results - last 24 hr 02/03/18 02/03/18 02/03/18 22:36 22:36 22:36 WBC 10.3 RBC 4.48 L Hgb 14.5 Hct 42.8 MCV 95.6 MCH 32.3 MCHC 33.8 RDW 14.1 Plt Count 218 Neut % (Auto) 57.4 Lymph % (Auto) 32.7 [place] % (Auto) 7.9 Eos % (Auto) 1.3 L Baso % (Auto) 0.7 Neut # (Auto) 5900 PT 29.6 H INR 2.7 H Sodium 142 Potassium 3.5 Chloride 102 Carbon Dioxide 29 BUN 18 Creatinine 0.70 Estimated GFR > 60.0 BUN/Creatinine Ratio 25.7 H Glucose 109 Calcium 8.9 Total Bilirubin 0.4 AST 76 H ALT 53 Alkaline Phosphatase 43 Total Creatine Kinase 104 CK-MB (CK-2) 1.47 CK-MB (CK-2) Rel Index 1.4 L Troponin I < 0.012 Total Protein 7.1 Albumin 4.4 Globulin 2.7 Albumin/Globulin Ratio 1.6 Nasal Screen MRSA (PCR) 02/04/18 02:40 WBC RBC Hgb Hct MCV MCH MCHC RDW Plt Count Neut % (Auto) Lymph % (Auto) [place] % (Auto) Eos % (Auto) Baso % (Auto) Neut # (Auto) PT INR Sodium Potassium Chloride Carbon Dioxide BUN Creatinine Estimated GFR BUN/Creatinine Ratio Glucose Calcium Total Bilirubin AST ALT Alkaline Phosphatase Total Creatine Kinase CK-MB (CK-2) CK-MB (CK-2) Rel Index Troponin I Total Protein Albumin Globulin Albumin/Globulin Ratio Nasal Screen MRSA (PCR) Negative for mrsa Assessment & Plan Plan: Assessment/Plan Narrative: Rib fractures. Serious with 1 bilaterally and multiple ribs on the right side. No evidence on CT scan of vascular or pulmonary injury. But at high risk. Will need to observe for the next 24 hr for any obvious bleeding or changes. Will repeat labs in the morning. Due to the degree of impact will hold physical therapy till tomorrow. Will begin that then. Will attempt pain control with orals but may need to move to [employer] will see how things go Recurrent falls. Patient has had the question of whether not he has had some slowing down and change in his gait over the last 2 years we have had him see a neurologist in the past but I wonder about a Parkinson's like neurologic disorder will need to have Neurology outpatient evaluation since we do not have access here. Patient certainly not help with alcohol and will have to discuss that again. PT evaluation and may need most probably rehab secondary to the amount of pain plus his current neurologic slow down History of alcohol abuse. I suspect he will not withdraw but will put him on CIWA protocol and follow. He is in moderate amount of denial in will see about getting him to quit. Atrial fibrillation. Currently stable. At this point I do not think Coumadin is a good idea is been in to falls and were going to discontinue. Will continue his metoprolol Coronary artery disease. Appears stable. Certainly high risk will follow. Head laceration sutures will need to be removed remained stable so need to be removed does not appear to be head fracture. Will watch. Concussion. Negative CT scan will follow. BPH. Will continue usual medicine. Dehydration. Patient with minimal output will give IV fluid. Disposition. Will need 2 or 3 days of hospitalization probably and rehab with getting him back to move along and ADLs. Family understands
[2018-02-04] MEDS: LACTATED RINGERS 1,000 ML 125 ML IV ×2 (13:57→21:38)
--- NOTE | 2018-02-04 14:45 | CM.DANOTE ---
Discharge Planning/Care Management DCP: assessment: case received, EMR reviewed and spoke with Dr. Arce. He reports that pt has broken several ribs in his fall and will need to be in the hospital for a bit and then snf rehab. He says he did discuss this with pt and his and that they were agreeable. Met then with pt and introduced self and role. Pt is a 77 year old male who admitted to care of PCP: dr. Carroll early this morning. Payer: Medicare and AARP: INPT admission status confirmed by Dr. Arce and by UR RN Mika. Pt report does not that Dr. Arce talked about rehab but he is unclear on the details...seemed to think it was outpt PT. He did say it was hard to think and my Mary Anne will know more.. Called her on cell: [phone] and had brief discussion. She was in a noisy restaurant and sounded anxious and with many questions. She also noted surprise that her was agreeable to rehab but said he very much would need this. She will be here tomorrow at 1300 to meet with DCPlanner assigned to his case. DCP team will follow closely... P: at this point anticipate snf rehab. CM Discharge Assessment Start: 02/04/18 14:42 Freq: Status: Active Protocol: Document 02/04/18 14:42 ITV (Rec: 02/04/18 14:45 ITV [email or web address]) Discharge Planning Assessment Advance Directives? Yes Advance Directives on File Yes History Provided By Patient Family Member Medical Record Prior Living Arrangements House Household Members spouse Independent with ADL's Yes Is patient alert and oriented? No: alert but foggy likely from medication Comment . Discharge Plan Home Whiteboard Updated in Patient Room with Yes name and ext. # of Paper [employer] Review Status In Process Next Review Type Continued Stay Review
--- NOTE | 2018-02-04 16:11 | PT.IPTN ---
Physical Therapy Treatment Note M3 PT-IP Subjective Start: 02/04/18 16:09 Freq: NEEDED Status: Active Protocol: Document 02/04/18 16:10 RS (Rec: 02/04/18 16:11 RS [id number]) Subjective Physical Therapy Visit Type Type Administrative Note Notes Attempted to see this patient twice today, however, per MD and RN, they are reqesting therapies hold for today (due to newly found rib fractures). Will attempt again tomorrow.
[2018-02-04] MEDS: TAMSULOSIN 0.4 MG CAPSULE PO (16:54)
--- NOTE | 2018-02-04 19:53 | PC.NURSE ---
Addendum entered by Migdalia Marvin R.N. 02/04/18 22:32: 2000 - Dr. Miranda notified of pt difficulty voiding. Bladder scan 480. Pt denies discomfort. Order obtained. Monitor. 2129 - Pt requesting RX for pain. APAP [address] Miranda notified. Orders obtained. Pt able to stand at bedside and void 190cc, total of 290 this shift. Continues to deny bladder discomfort. Percolone given for pain. Reinforced splinting with movement and deep breath. I.S. education provided. Pt able to do 5 breaths, volume <500. Discussed continued effort when pain is controlled. Bed alarm on. Call light in reach. RT to set up pt home c-pap. Original Note: 1943 - Pt has had two 50cc voids this shift, and two additional attempts to void without results. States that he did not take his flomax yesterday. Dose given this evening. Bladder scan 480cc. Pt denies pain but does state that he has an urge to void. IVF infusing at 125cc/hr. Taking PO without difficult. Reports painful back, moaning loudly with return to bed. Assist with positioning for comfort. Discussed pain control options. Pt states It's calming down now. Monitor.
[2018-02-04] MEDS: OXYCODONE IR 10 MG TABLET PO (21:37)
[2018-02-05] VITALS (13 sets, daily range): BP systolic 132–182; BP diastolic 66–91; PULSE 80–99; RESP 16–20; TEMP 36.6–37.2; O2SAT 87–96
[2018-02-05] MEDS: OXYCODONE IR 10 MG TABLET PO ×2 (00:54→05:13)
[2018-02-05] MEDS: LACTATED RINGERS 1,000 ML 125 ML IV ×2 (05:13→13:00)
[2018-02-05] MEDS: PANTOPRAZOLE 20 MG TABLET PO (05:13)
[2018-02-05 05:50] LABS: Add Manual Diff / Slide Review NO; Basophils Percent Auto 0.5 % (0-2); Eosinophils Percent Auto 0.4 % (2-4); Hematocrit 32.9 % (41-53); Hemoglobin 11.5 g/dL (13.5-17.5); Mean Corpuscular HGB Conc 34.8 % (30-36); Mean Corpuscular Hemoglobin 32.8 PG (26-34); Mean Corpuscular Volume 94.3 fL (80-100); Monocytes Percent Auto 9.1 % (3-14); Neutrophils Absolute Auto 5900 /uL (3000-5900); Platelet Count 157 X10^3/uL (150-400); Red Blood Cell Count 3.49 X10^6/uL (4.5-5.9); White Blood Cell Count 8.7 X10^3/uL (4.5-11.0)
[2018-02-05 05:55] LABS: Blood Urea Nitrogen 12 mg/dL (9-20); Calcium 8.6 mg/dL (8.4-10.2); Carbon Dioxide 27 mmol/L (22-32); Chloride 102 mmol/L (98-107); Estimated Glomerular Filt Rate > 60.0 mL/min (>60); Glucose 119 mg/dL (80-110); HEMOLYSIS < 15 (0-50); Potassium 3.5 mmol/L (3.4-5.1); Sodium 138 mmol/L (137-145)
--- NOTE | 2018-02-05 08:01 | PM.PN.1 ---
Subjective Date Patient Seen: 02/05/18 Time Patient Seen: 08:01 Interval history: Patient seen in follow-up of fall. Rib fractures. Pain control. Overall had an okay night. No major issues. He feels like his pain is moderately well controlled. Sometimes does not feel like it is worth working has not been mobilized. Pain with deep breath or some breathing. No other significant new change. Just hurting and main focus. No other changes. No evidence of alcohol withdrawal. Exam Vital Signs (past 8 hours): - 02/05/18 00:34 02/05/18 04:06 02/05/18 05:28 Temperature 98 F 98.6 F Pulse Rate 99 H 89 Respiratory Rate 18 20 Blood Pressure 164/91 H 141/71 H Pulse Oximetry 93 92 93 Oxygen Delivery Method Room Air,CPAP Oxygen Flow Rate 0 Narrative Exam Narrative: Alert fatigue male with CPAP moving very slowly. HEENT exam laceration is healing well. Eyes are PERRLA oral mucosa is unremarkable neck supple without adenopathy for range of motion does have some tenderness posterior neck muscles lungs are clear. Heart regular rate and rhythm. Chest wall shows marked tenderness bilateral upper area with no crepitus or step-offs. Abdomen is soft positive bowel sounds nontender. Extremities actually diffusely tender but no specific tenderness except for his right arm which is significantly tender and has been. Objective Labs Result Diagrams: 02/05/18 05:14 02/05/18 05:14 Labs: Laboratory Results - last 24 hr 02/05/18 02/05/18 05:14 05:14 WBC 8.7 RBC 3.49 L Hgb 11.5 L Hct 32.9 L MCV 94.3 MCH 32.8 MCHC 34.8 RDW 14.0 Plt Count 157 Neut % (Auto) 68.0 Lymph % (Auto) 22.0 L [place] % (Auto) 9.1 Eos % (Auto) 0.4 L Baso % (Auto) 0.5 Neut # (Auto) 5900 Sodium 138 Potassium 3.5 Chloride 102 Carbon Dioxide 27 BUN 12 Creatinine 0.50 L Estimated GFR > 60.0 BUN/Creatinine Ratio 24.0 H Glucose 119 H Calcium 8.6 Assessment & Plan Plan: Assessment/Plan Narrative: Anemia. Pretty significant drop. Patient has had pretty significant head wound and fluid which I think is probably the cause. But will recheck tomorrow to make sure least stable. There was no evidence of intra thoracic bleeding but will watch re-evaluate. Dehydration. Patient due to pain is taking decreased p.o. intake. Will continue IV hydration for now hopefully we can discontinue tomorrow. Rib fractures. Pain control borderline seems to be doing well with oral Percocet. Going to be a number of weeks before he heals up from this. Will just have to see how things go. Recurrent falls. Combination of alcohol and possible neurologic issue. We discussed today his need to stop drinking which he understands but is not really motivated at this time. Will need neurologic outpatient referral once we get things settled down. History of alcohol abuse. I will continue CIWA watch and make Ativan available Atrial fibrillation. Currently sinus. Will continue metoprolol. Coronary artery disease. Appears stable. Certainly high risk will follow. Head laceration no evidence of infection will follow Concussion. Negative CT scan will follow. Suspect is part of the reason that he is kind of slow moving no evidence of intracranial bleed will follow BPH. Will continue usual medicine. Disposition. Clearly is going to need rehab. I do not think he will be able to go home in his current condition. Mostly it is going to be just his ability to move and do ADLs. We will see what physical therapy thinks at this time. But I am planning for residential placement for recovery. Very significant mode of injury
--- NOTE | 2018-02-05 08:05 | PT.IPTN ---
Physical Therapy Treatment Note M3 PT-IP Subjective Start: 02/04/18 16:09 Freq: NEEDED Status: Active Protocol: Document 02/05/18 07:30 [facility] (Rec: 02/05/18 08:05 [facility] [id number]) Subjective Physical Therapy Visit Type Type Patient Refusal Notes Pt refused PT reporting too much pain. RN asked for PT to return after breakfast and pain meds.
[2018-02-05] MEDS: OXYCODONE IR 5 MG TABLET 10 MG PO ×5 (08:36→20:07)
[2018-02-05] MEDS: ACETAMINOPHEN 325 MG TABLET 650 MG PO ×3 (08:37→20:06)
[2018-02-05] MEDS: DOCUSATE 100 MG CAPSULE PO ×2 (08:40→20:07)
[2018-02-05] MEDS: ALLOPURINOL 300 MG TABLET PO (08:40)
[2018-02-05] MEDS: ATORVASTATIN 20 MG TABLET 40 MG PO (08:40)
[2018-02-05] MEDS: LISINOPRIL 5 MG TABLET PO (08:41)
[2018-02-05] MEDS: METOPROLOL ER 50 MG TABLET PO ×2 (08:41→20:06)
--- NOTE | 2018-02-05 09:25 | PC.NURSE ---
Addendum entered by Candida White R.N. 02/05/18 14:36: PAIN - Given 10mg po oxycodone and 650mg po tylenol for pain 4-5 on scale 0/10, informed pt most likely transferred upstairs later this afternoon/marisela. Original Note: Addendum entered by Candida White R.N. 02/05/18 13:09: PAIN//RESP -assist to dangle and voided x2, states I can't tell if I'm going, pain remains 5 on scale 0/10 and req pain medication, given oxycodone 10mg, enc freq use IS. Original Note: Addendum entered by Candida White R.N. 02/05/18 11:34: GI - discussed constipation with narcotics, given prune juice. Original Note: AM NOTE - wearing cpap machine, awakens easily, requesting pain medication, discussed dosage and timimg and given 10mg oxycodone with breakfast for pain 6 on scale 0/10, back, chest, torso area, denies headache or vision problem, does moan with repositioning, later up to dangle position and slowly tsf to stand, pivot to chair with alarm set, bs dim mid to lower, ra 92%, 1+ pedal edema.
[2018-02-05] MEDS: ENOXAPARIN 40 MG/0.4 ML SYRINGE SUBCUT (09:36)
--- NOTE | 2018-02-05 10:15 | PT.IIE ---
Current Diagnoses Multiple fractures of ribs, right side, initial encounter for closed fracture (02/04/18) Surgical History (Last Reviewed 02/04/18 @ 13:40 by Enrike Arce MD) Hx of CABG (Acute) Medical History (Last Reviewed 02/04/18 @ 13:40 by Enrike Arce MD) Atrial fibrillation (Acute) CAD (coronary artery disease) (Acute) HTN (hypertension) (Acute) Hyperlipidemia (Acute) Physical Therapy Inpatient Evaluation/Re-Eval M1 PT/OT-IP Prior Functional Status Start: 02/04/18 14:08 Freq: NEEDED Status: Active Protocol: Document 02/05/18 10:15 [facility] (Rec: 02/05/18 10:31 [facility] [email or web address]) Medical Review Prior Functional Status Medical History Reviewed Yes Mobility and Gait indep. short outdoor gait without device, prior to previous fall indep. community ambulator without device Activities of Daily Living and IADL's modified indep. with dressing with increased time, unable to use R arm functionally due to previous fall and pain. Social History Household Members spouse Living Arrangements House Number of Floors (Floors) Two Floors Number of Stairs To Enter/Railing? 2 SE R ascending rail, all needs on main level Home Environment High Toilet Walk in Shower Home Equipment Front Wheel Walker Quad Cane Lift Recliner Grab Bars In Shower Additional Social History Comment Pt no longer has a seat for the shower (returned to [facility]) Pt fell down stairs at home, unconscious. PT was held yesterday for MD monitoring, but now cleared for mobility by MD. Prior GLF resulting in injury to the R shoulder. H/o ETOH abuse. cervical CT: Multiple right rib fractures (ribs 1-5) at the costovertebral junctions. There is also anterior bilateral first rib, and anterior right second rib, fractures. R shoulder imaging showed calcification and degeneration. He was being seen in OP PT for his R shoulder @ [facility] in [place] M2 PT-IP Current Condition Start: 02/04/18 16:09 Freq: NEEDED Status: Active Protocol: Document 02/05/18 10:15 [facility] (Rec: 02/05/18 10:31 [facility] [email or web address]) Physical Therapy Current Condition Current Condition Evaluation Date 02/05/18 Treatment Diagnosis fall down stairs, impaired mobility Precautions Other Precautions R shoulder painful M3 PT-IP Subjective Start: 02/04/18 16:09 Freq: NEEDED Status: Active Protocol: Document 02/05/18 10:15 [facility] (Rec: 02/05/18 10:31 [facility] [email or web address]) Subjective Physical Therapy Visit Type Type Initial Evaluation Visit Start Time 09:50 Visit Stop Time 10:15 Total Visit Minutes 25 Number of HARBOR PILOT Visits 0 Physical Therapy Visit Comments Patient Comments pt with R side of upper back and shoulder pain. Patient Goals improve balance, decrease/ manage pain. Therapy Pain Assessment Location Back Intensity 5 Scale Used Numeric (1 - 10) Description Sharp M4 PT-IP Mobility and Gait Start: 02/04/18 16:09 Freq: NEEDED Status: Active Protocol: Document 02/05/18 10:15 [facility] (Rec: 02/05/18 10:31 [facility] [email or web address]) PT-Transfer Assessment Sit to and From Stand Sit to and from Stand Moderate Assistance 1 Person Assistance Use of Upper Extremities Equipment Transfer Assistive Device Gait Belt Front Wheeled Walker Transfers Transfer Destination Chair Transfer Technique Stand Step Pivot Transfer Ability Level of Assist Contact Guard Assistance Gait Assessment Gait Gait Assistance Required: Contact Guard Assist Distance (Feet) 6 Assistive Devices Assistive Device Gait Belt Front Wheeled Walker Gait Deviations General Gait Pattern Antalgic Decreased Stride Length Decreased Feet Clearance Flexed Trunk Step-to Gait Factors Limiting Gait Function Factors Limiting Gait Function Decreased Activity Tolerance Decreased Strength Pain Poor Balance Comments Gait Comments able to editor index R hand onto FWW, pt reports most pain in scapular region/upper back on the R PT-Balance Assessment Sitting Balance and Reactions Static Sitting Balance Ability Fair Dynamic Sitting Balance Ability Fair Standing Balance and Reactions Static Standing Balance Ability Fair Dynamic Standing Balance Ability Poor Device Used FWW Comments Other Balance Tests/Deviations/Treatment unable to tolerate balance : testing M5 PT-IP Objective Assessments Start: 02/04/18 16:09 Freq: NEEDED Status: Active Protocol: Document 02/05/18 10:15 [facility] (Rec: 02/05/18 10:31 [facility] [email or web address]) Orientation Orientation/Cognition Level of Alertness Alert Orientation Name Age Birthday Month Date Place Situation Gross Range of Motion Upper Extremity ROM Assessment Right Impaired Impairments R shoulder flexion limited to lifting arm off of arm rest of chair, but no further. Lower Extremity ROM Assessment Within Functional Limits Strength Upper Extremity Strength Assessment Right Impaired Lower Extremity Strength Assessment Bilaterally Impaired Hip flexion R 3+/5 and L 4/5 Knee flexion and extension 4/5 B Ankle DF 4+/5 R and 5/5 L Comments Strength Comments unable to test RUE with MMT due to pain. M6 PT-IP Treatment Start: 02/04/18 16:09 Freq: NEEDED Status: Active Protocol: Document 02/05/18 10:15 [facility] (Rec: 02/05/18 10:31 [facility] [email or web address]) Physical Therapy Treatment Education Education Provided Safety Other Treatments Other Treatment Performed edu. and performed IS x3 M7 PT-IP Assessment and Plan Start: 02/04/18 16:09 Freq: NEEDED Status: Active Protocol: Document 02/05/18 10:15 [facility] (Rec: 02/05/18 10:31 [facility] [email or web address]) PT Summary Assessment and Plan Potential Rehabilitation Potential Good Status of Condition at Evaluation Evolving Summary Impairments Pain ROM Strength Balance Gait Activity Tolerance Assessment Summary Pt able to take very short, slow steps during gait, with cueing for upright posture to prevent excessive pain in R upper back. Pt is able to answer and respond to questions during evaluation. He has had multiple falls in the recent past, at is still at high risk for future falls and further/worsening injury to himself. At this time, the burden of care is too high for the pt's to manage at home. Pt is not safe to return home, but is an excellent candidate for SNF rehabilitation to improve his gait, balance, strength, R shoulder ROM and function, and to promote a safe d/c and foster return to indep. function. Goals Bed Mobility Goal Contact Guard Assistance Transfer Goal Standby Assistance Gait Goal Standby Assistance Gait Distance 150 Other Goals up/down 2 steps with R ascending rail and CGA Days to Meet Goals 3 Frequency of Treatment Frequency Of Treatment Twice a Day Treatment Plan Physical Therapy Treatment Plan Bed Mobility Training Transfer Training Gait Training Therapeutic Exercise Balance Retraining Discharge Planning Hot or Cold Pack Manual Therapy Other Recommendations and Next Treatment prog. gait as tolerated, bed Focus mobility, sit<->stand training . Recommendations To Nursing Amount of Assist Needed 2 Person Assist Discharge Recommendations PT Discharge Recommendations SNF Rehab
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
--- NOTE | 2018-02-05 12:46 | CM.DPC ---
DCP Cont: Met with patient and spouse, Mary Anne. gave cell phone number: [phone]. Discussed skilled need with patient. Is aware that patient would need to be here 3 midnights to qualify. Stated that her has had falls in the past, and has been concerned about status at home. is in agreement that patient may need [place] [facility]. Gave the Medicare Choice list. She is reviewig. Suggested to that she visit facilities. Stated that she will go and visit facilities before making a decision. She also stated that she will meet her son in [facility] to look at facilities there. Karissa Mohamud RN/Scraper Hand
--- NOTE | 2018-02-05 15:34 | PT.IPTN ---
Current Diagnoses Multiple fractures of ribs, right side, initial encounter for closed fracture (02/04/18) Physical Therapy Treatment Note M2 PT-IP Current Condition Start: 02/04/18 16:09 Freq: NEEDED Status: Active Protocol: Document 02/05/18 10:15 RCC (Rec: 02/05/18 10:31 RCC [email or web address]) Physical Therapy Current Condition Current Condition Evaluation Date 02/05/18 Treatment Diagnosis fall down stairs, impaired mobility Precautions Other Precautions R shoulder painful M3 PT-IP Subjective Start: 02/04/18 16:09 Freq: NEEDED Status: Active Protocol: Document 02/05/18 15:20 SA (Rec: 02/05/18 15:34 SA [id number]) Subjective Physical Therapy Visit Type Type Treatment Note Visit Start Time 14:57 Visit Stop Time 15:17 Total Visit Minutes 20 Notes Pt up in chair, agreeable to PT. Number of CANE BURNER Visits 1 Physical Therapy Visit Comments Patient Comments Pt reported R upper back and shoulder at 5/10 pain. Focused on room change. Therapy Pain Assessment Pain When Pain Assessed After Treatment Pain Present Pain Present Pain Reported Location Back Intensity 5 Scale Used Numeric (1 - 10) Pain Management Techniques Re-positioning Timing of Activity with Medications M4 PT-IP Mobility and Gait Start: 02/04/18 16:09 Freq: NEEDED Status: Active Protocol: Document 02/05/18 15:20 SA (Rec: 02/05/18 15:34 SA [id number]) PT-Transfer Assessment Sit to and From Stand Sit to and from Stand Moderate Assistance 1 Person Assistance Use of Upper Extremities Equipment Transfer Assistive Device Gait Belt Front Wheeled Walker Transfers Transfer Destination Chair Transfer Technique Stand Step Pivot Transfer Ability Level of Assist Contact Guard Assistance Comments Mobility Comments Pt needs cues for safe use of FWW and safety in general. Demonstrates poor carry over. Gait Assessment Gait Gait Assistance Required: Contact Guard Assist Distance (Feet) 5 Able to Maintain Weight Bearing Status Yes During Gait Assistive Devices Assistive Device Gait Belt Front Wheeled Walker Gait Deviations General Gait Pattern Antalgic Decreased Stride Length Decreased Feet Clearance Flexed Trunk Step-to Gait Factors Limiting Gait Function Factors Limiting Gait Function Decreased Activity Tolerance Decreased Strength Pain Poor Balance Comments Gait Comments Pt had some c/o dizziness that resided with static standing. Able to walk 5 feet forward and backward with frequent cues for safety and CGA. M5 PT-IP Objective Assessments Start: 02/04/18 16:09 Freq: NEEDED Status: Active Protocol: Document 02/05/18 10:15 RCC (Rec: 02/05/18 10:31 RCC [email or web address]) Orientation Orientation/Cognition Level of Alertness Alert Orientation Name Age Birthday Month Date Place Situation Gross Range of Motion Upper Extremity ROM Assessment Right Impaired Impairments R shoulder flexion limited to lifting arm off of arm rest of chair, but no further. Lower Extremity ROM Assessment Within Functional Limits Strength Upper Extremity Strength Assessment Right Impaired Lower Extremity Strength Assessment Bilaterally Impaired Hip flexion R 3+/5 and L 4/5 Knee flexion and extension 4/5 B Ankle DF 4+/5 R and 5/5 L Comments Strength Comments unable to test RUE with MMT due to pain. M6 PT-IP Treatment Start: 02/04/18 16:09 Freq: NEEDED Status: Active Protocol: Document 02/05/18 15:20 SA (Rec: 02/05/18 15:34 SA [id number]) Physical Therapy Treatment Exercises Exercises Ankle Pumps Quad Sets Education Education Provided Safety Other Treatments Other Treatment Performed Static standing balance training with pt using urinal. M7 PT-IP Assessment and Plan Start: 02/04/18 16:09 Freq: NEEDED Status: Active Protocol: Document 02/05/18 15:20 SA (Rec: 02/05/18 15:34 [id number]) PT Summary Assessment and Plan Potential Rehabilitation Potential Good Status of Condition at Evaluation Evolving Summary Assessment Summary Pt impulsive with movements and demonstrates poor judgement. Continuous cues for safety with mobility tasks. Frequency of Treatment Frequency Of Treatment Twice a Day Recommendations To Nursing Amount of Assist Needed 2 Person Assist Discharge Recommendations PT Discharge Recommendations SNF Rehab
--- NOTE | 2018-02-05 16:36 | PC.NURSE ---
1630 - Pt aware that he will be moving to room 206. Belongings accompany pt. Able to stand, one person assist to move wheelchair. Report given to DENIS Loya by nidia BARRIOS.
[2018-02-05] MEDS: TAMSULOSIN 0.4 MG CAPSULE PO (17:21)
--- NOTE | 2018-02-05 19:51 | PC.NURSE ---
Oanh shift note: Received patient from ICU at 1700. Patient up to AC via WC, up out of chair to bed with 2PA and FWW. Required careful repositioning and transferring using gait belt lower chest due to pain from chest wall trauma/fall. Patient alert and oriented, pain controlled with Oxycodone as ordered. No c/o nausea or vomiting, no swallowing difficulty. CIWA score 2. IVF infusing, using urinal with assistance. Bed alarm active, uses call light appropriately.
[2018-02-06] VITALS (18 sets, daily range): BP systolic 128–178; BP diastolic 67–94; PULSE 82–180; RESP 14–22; TEMP 36.6–37.3; O2SAT 91–94
--- NOTE | 2018-02-06 | DI.RAD.S_ITS ---
PROCEDURE: XR CHEST 2V INDICATIONS: bilateral rib fractures possible effusion, pneumonia TECHNIQUE: 2 views of the chest were acquired. COMPARISON: [facility], CR, XR CHEST 1V, 12/12/2017, 12:39. FINDINGS: Surgical changes and devices: Postsurgical changes compatible prior CABG procedure Lungs and pleura: Trace left and small right pleural fluid collections. Bibasilar lung opacities right greater than left concerning for atelectasis, aspiration or pneumonia. Mediastinum: Mediastinal contours are normal. Heart size is enlarged. Bones and chest wall: No suspicious bony abnormalities. Soft tissues appear unremarkable. IMPRESSION: 1. Bibasilar lung opacities right greater than left which could represent atelectasis, aspiration or pneumonia. 2. Trace left and small right pleural fluid collections right greater than left which could represent effusions, however given history of bilateral rib fractures hemothorax cannot be excluded. 3. No pneumothorax identified. Dictated by: Karina De Luna MD, PhD on 02/06/2018 at 16:07 Approved by: Karina De Luna MD, PhD on 02/06/2018 at 16:09
[2018-02-06] MEDS: LACTATED RINGERS 1,000 ML 125 ML IV ×2 (00:30→09:34)
[2018-02-06] MEDS: OXYCODONE IR 5 MG TABLET 10 MG PO ×6 (00:30→21:19)
--- NOTE | 2018-02-06 02:02 | PC.NURSE ---
It Coordinator Summary: 0030: Awake, resting in recliner chair. Home CPAP on. IV in place in lt wrist with LR infusing at 125cc/hr. Shweta intact in scalp laceration, no bleeding or drainage noted.
[2018-02-06] MEDS: LORazepam 2 MG/ML SYRINGE 0.5 MG IV (03:18)
[2018-02-06] MEDS: PANTOPRAZOLE 20 MG TABLET PO (06:36)
[2018-02-06 07:15] LABS: Add Manual Diff / Slide Review NO; Basophils Percent Auto 0.6 % (0-2); Eosinophils Percent Auto 0.7 % (2-4); Hematocrit 31.8 % (41-53); Hemoglobin 10.8 g/dL (13.5-17.5); Lymphocytes Percent Auto 14.9 % (25-40); Mean Corpuscular Hemoglobin 32.1 PG (26-34); Mean Corpuscular Volume 94.6 fL (80-100); Monocytes Percent Auto 9.4 % (3-14); Neutrophils Absolute Auto 6800 /uL (3000-5900); Neutrophils Percent Auto 74.4 % (50-75); Platelet Count 161 X10^3/uL (150-400); Red Blood Cell Count 3.36 X10^6/uL (4.5-5.9); White Blood Cell Count 9.2 X10^3/uL (4.5-11.0)
[2018-02-06 07:29] LABS: Blood Urea Nitrogen 10 mg/dL (9-20); Calcium 8.7 mg/dL (8.4-10.2); Carbon Dioxide 27 mmol/L (22-32); Chloride 100 mmol/L (98-107); Estimated Glomerular Filt Rate > 60.0 mL/min (>60); Glucose 150 mg/dL (80-110); HEMOLYSIS < 15 (0-50); Potassium 3.6 mmol/L (3.4-5.1); Sodium 138 mmol/L (137-145)
[2018-02-06] MEDS: ATORVASTATIN 20 MG TABLET 40 MG PO (09:33)
[2018-02-06] MEDS: METOPROLOL ER 50 MG TABLET PO ×2 (09:36→21:17)
[2018-02-06] MEDS: DOCUSATE 100 MG CAPSULE PO ×2 (09:36→21:17)
[2018-02-06] MEDS: ENOXAPARIN 40 MG/0.4 ML SYRINGE SUBCUT (09:37)
[2018-02-06] MEDS: ALLOPURINOL 300 MG TABLET PO (09:37)
[2018-02-06] MEDS: LISINOPRIL 5 MG TABLET PO (09:37)
--- NOTE | 2018-02-06 10:57 | CM.DPC ---
DCP Cont: Spoke to , Mary Anne. Her cell number is [phone]. She stated that she researched [facility], and was not sure, since they do not have a private room. She stated that she would have to pay over 400.00 a day. She will also be checking out [facility]. Stated she will check out [facility] as well. She stated that she has been in contact with Dr. Arce, who stated that he may be here for a couple more days. P: Continue to follow patient and check in with regarding facility of choice. Karissa Mohamud RN/Marketing Community Liaison
--- NOTE | 2018-02-06 11:01 | PT.IPTN ---
Current Diagnoses Multiple fractures of ribs, right side, initial encounter for closed fracture (02/04/18) Physical Therapy Treatment Note M2 PT-IP Current Condition Start: 02/04/18 16:09 Freq: NEEDED Status: Active Protocol: Document 02/05/18 10:15 RCC (Rec: 02/05/18 10:31 RCC [email or web address]) Physical Therapy Current Condition Current Condition Evaluation Date 02/05/18 Treatment Diagnosis fall down stairs, impaired mobility Precautions Other Precautions R shoulder painful M3 PT-IP Subjective Start: 02/04/18 16:09 Freq: NEEDED Status: Active Protocol: Document 02/06/18 10:52 SA (Rec: 02/06/18 11:01 SA [id number]) Subjective Physical Therapy Visit Type Type Treatment Note Visit Start Time 09:35 Visit Stop Time 09:55 Total Visit Minutes 20 Notes Pt wit hwife present for PT, up in chair and agreeable to get up. Number of CITY SOLICITOR Visits 2 Physical Therapy Visit Comments Patient Comments Pt reports R shoulder and r upper back pain at 5/10. Nursing giving pain meds at start of session. Therapy Pain Assessment Pain When Pain Assessed During Mobility Pain Present Pain Present Pain Reported Location Back Intensity 5 Scale Used Numeric (1 - 10) Pain Management Techniques Re-positioning Timing of Activity with Medications M4 PT-IP Mobility and Gait Start: 02/04/18 16:09 Freq: NEEDED Status: Active Protocol: Document 02/06/18 10:52 SA (Rec: 02/06/18 11:01 [id number]) PT-Transfer Assessment Sit to and From Stand Sit to and from Stand Moderate Assistance 1 Person Assistance Use of Upper Extremities Equipment Transfer Assistive Device Gait Belt Front Wheeled Walker Transfers Transfer Destination Chair Transfer Technique Stand Step Pivot Transfer Ability Level of Assist Contact Guard Assistance Comments Mobility Comments Pt stood for about 4 minutes to use urinal and take medication. Has c/o mild dizziness. HR at 125 prior to sitting. Gait Assessment Gait Gait Assistance Required: Contact Guard Assist Distance (Feet) 6 Able to Maintain Weight Bearing Status Yes During Gait Assistive Devices Assistive Device Gait Belt Front Wheeled Walker Gait Deviations General Gait Pattern Antalgic Decreased Stride Length Decreased Feet Clearance Flexed Trunk Step-to Gait Factors Limiting Gait Function Factors Limiting Gait Function Decreased Activity Tolerance Decreased Strength Pain Poor Balance Comments Gait Comments Pt needs clear cues for safety with mobility. CGA provided with gait and static standing. M5 PT-IP Objective Assessments Start: 02/04/18 16:09 Freq: NEEDED Status: Active Protocol: Document 02/05/18 10:15 RCC (Rec: 02/05/18 10:31 RCC [email or web address]) Orientation Orientation/Cognition Level of Alertness Alert Orientation Name Age Birthday Month Date Place Situation Gross Range of Motion Upper Extremity ROM Assessment Right Impaired Impairments R shoulder flexion limited to lifting arm off of arm rest of chair, but no further. Lower Extremity ROM Assessment Within Functional Limits Strength Upper Extremity Strength Assessment Right Impaired Lower Extremity Strength Assessment Bilaterally Impaired Hip flexion R 3+/5 and L 4/5 Knee flexion and extension 4/5 B Ankle DF 4+/5 R and 5/5 L Comments Strength Comments unable to test RUE with MMT due to pain. M6 PT-IP Treatment Start: 02/04/18 16:09 Freq: NEEDED Status: Active Protocol: Document 02/06/18 10:52 SA (Rec: 02/06/18 11:01 [id number]) Physical Therapy Treatment Education Education Provided Precautions Post-Op Packet Safety Other Treatments Other Treatment Performed Education with patient's regarding SNF expectations with therapy and d/c planning. M7 PT-IP Assessment and Plan Start: 02/04/18 16:09 Freq: NEEDED Status: Active Protocol: Document 02/06/18 10:52 SA (Rec: 02/06/18 11:01 [id number]) PT Summary Assessment and Plan Potential Rehabilitation Potential Good Status of Condition at Evaluation Evolving Summary Assessment Summary Pt with poor standing balance and requires cues for safety wit rashid mobility. Frequency of Treatment Frequency Of Treatment Twice a Day Recommendations To Nursing Amount of Assist Needed 2 Person Assist Discharge Recommendations PT Discharge Recommendations SNF Rehab
--- NOTE | 2018-02-06 13:19 | ST.IPCSEOM ---
Care Team Visit Care Team Role Provider Type Libby Lott DO Emergency Provider Physician Specialty: Emergency Medicine Address: [address] [place] [address], [id number] Email: Enrike Arce MD Admit Provider Physician Attending Provider Family Provider Other Providers Primary Care Provider Specialty: Family Practice Address: [facility] [place], [address] Email: [email or web address] Current Diagnoses Multiple fractures of ribs, right side, initial encounter for closed fracture (02/04/18) Past Medical History (Last Reviewed 02/04/18 @ 13:40 by Enrike Arce MD) Atrial fibrillation (Acute Medical) CAD (coronary artery disease) (Acute Medical) HTN (hypertension) (Acute Medical) Hyperlipidemia (Acute Medical) Speech-Language Pathology Swallow Evaluation RN PERINATAL Clinical Swallow Evaluation Start: 02/06/18 12:49 Freq: Status: Active Protocol: Document 02/06/18 12:50 LNK (Rec: 02/06/18 13:19 LNK [id number]) Clinical Swallow Evaluation Session Time Visit Start Time 11:30 Visit Stop Time 12:10 Total Visit Minutes [address] Washington Reason for Referral coughing when swallowing liquids Setting Assessment Location Acute Care Visit Type Note Type Initial Evaluation Next Note Type Next Note Type Treatment Note Patient Information Identification Type Name ID Wristband History Pt is a 77 year old male who was admitted to the ED after a fall down several tile stairs resulting in rib fractures and a head laceration. Nursing reported that he had been coughing with thin liquids. Pt has a history of esophageal stricture. Past medical history: Coronary artery disease CABG x4 2009 Atrial fibrillation History of esophageal stricture Hypercholesterolemia Hypertension Gout BPH History of alcohol abuse Tobacco abuse quit when he was 33 Past surgical history CABG x1 Habits alcohol as above no cigarettes or tobacco use no other drugs Subjective Observations Pt was asleep in bedside chair with lunch tray located on tray in front of him. Easily awakened and agreeable to eat some lunch. Pt repositioned with nursing to be more upright in the chair. Evaluation Liquids Trialed Ice Chips Thin [place] Solids Trialed Dysphagia Advanced Mechanical Soft Regular Administration Type Self-Feeding Oral Impairment WFL Oral Strategies Upright at 90 degrees Alternate Liquids/Solids Oral Phase Comments Oral phase of swallowing WFL. No difficulty observed with bite, mastication, bolus preparation/control. Oral structures and function WFL. Pharyngeal Impairment WFL Pharyngeal Strategies Sitting Upright (90 deg) Alternate Liquids/Solids Pharyngeal Phase Comments Pharyngeal phase of swallowing also WFL. Pt demonstrated prompt swallow with good hyolaryngeal elevation and excursion. No wet voicing or evidence of pharyngeal pooling. No cough/ choke observed with trials presented. Pt c/o food/liquids having difficulty passing through esophagus related to his stricture. He noted that he typically has to eat very slowly. Alternating liquids/ solids was recommended to ease passage through the esophagus . Upright at 90 degrees also recommended to reduce reflux and aspiration risk. Findings Impressions No oropharyngeal dysphagia observed. Pt has greatest difficulty with esophageal phase of swallowing. Sitting upright and eating slowly with alternating liquids/solids were suggested. P was agreeable to the suggestions. Diet Recommendations Liquids Order Thin Diet Order Regular Medication Recommendations As Tolerated Aspiration Precautions Recommended Precautions Upright at 90 Degrees Treatment Plan Appropriate for Therapy No
--- NOTE | 2018-02-06 13:20 | PM.PN.1 ---
Subjective Date Patient Seen: 02/06/18 Time Patient Seen: 09:01 Interval history: Patient apparently a little bit more confused this morning. Nurse has not seen a huge change but is a little worried. had multiple questions. No other changes. Pain still present but no other concerns. Patient has alert and oriented does think he is at [place] not [place] but otherwise seems to be appropriate. Otherwise no changes. No new pain. Has not had a bowel movement for a little while. No abdominal pain. Exam Vital Signs (past 8 hours): - 02/06/18 07:00 02/06/18 08:47 02/06/18 12:35 Temperature 98.4 F 99.0 F Pulse Rate 115 H 100 H Respiratory Rate 20 18 Blood Pressure 178/82 H 143/79 H Pulse Oximetry 93 92 94 02/06/18 12:42 Temperature Pulse Rate 100 H Respiratory Rate Blood Pressure 143/79 H Pulse Oximetry Oxygen Delivery Method Room Air Oxygen Flow Rate 0 Narrative Exam Narrative: Alert elderly male sitting in chair in no acute distress except with movement Laceration scalp appears to be healing well. Pupils are equal and sponsored light. Neck is supple without adenopathy. Lungs are clear. Heart regular rate and rhythm. Abdomen is soft positive bowel sounds nontender. Chest wall has continued significant tenderness around both sides upper area no crepitus. Extremities without cyanosis clubbing edema. Neurologic exam is nonfocal. Objective Labs Result Diagrams: 02/06/18 07:11 02/06/18 07:11 Labs: Laboratory Results - last 24 hr 02/06/18 02/06/18 07:11 07:11 WBC 9.2 RBC 3.36 L Hgb 10.8 L Hct 31.8 L MCV 94.6 MCH 32.1 MCHC 34.0 RDW 14.0 Plt Count 161 Neut % (Auto) 74.4 Lymph % (Auto) 14.9 L Fann[place] % (Auto) 9.4 Eos % (Auto) 0.7 L Baso % (Auto) 0.6 Neut # (Auto) 6800 H Sodium 138 Potassium 3.6 Chloride 100 Carbon Dioxide 27 BUN 10 Creatinine 0.50 L Estimated GFR > 60.0 BUN/Creatinine Ratio 20.0 Glucose 150 H Calcium 8.7 Assessment & Plan Plan: Assessment/Plan Narrative: Metabolic encephalopathy. I do not think he has a central issue. I think this is combination of possible early alcohol withdrawal, narcotics. But will watch closely. I do not think we need to reimage but if any significant changes otherwise we will. Constipation. Will add milk of magnesia and see how he does. Anemia. Stable. Suspect secondary to fluids and head laceration. Will follow. Dehydration. I think easy to use volemic. Will discontinue IV for now and follow. Rib fractures. P pain control seems appropriate. I do not see any vascular injury but recommendation was for trauma surgeon evaluation. Discussed with Dr. Hector he will see him today I suspect we are fine but no other changes. Recurrent falls. Combination of alcohol and possible neurologic issue. We discussed today his need to stop drinking which he understands but is not really motivated at this time. Will continue physical therapy and occupational therapy will need long-term treatment and eventually will need neurological evaluation History of alcohol abuse. I will continue CIWA watch and make Ativan available Atrial fibrillation. Currently sinus. Will continue metoprolol. Coronary artery disease. Appears stable. Certainly high risk will follow. Head laceration depending on how long he stays probably can remove his immanuel before he goes. Concussion. Negative CT scan will follow. Suspect is part of the reason that he is kind of slow moving no evidence of intracranial bleed will follow BPH. Will continue usual medicine. Disposition. Very slow improvement. Probably will need 1 or 2 more days in the hospital. Has not decided on rehab stay but physical therapy certainly feels like he needs to do that. We will see how things go.
--- NOTE | 2018-02-06 14:50 | PT.IPTN ---
Current Diagnoses Multiple fractures of ribs, right side, initial encounter for closed fracture (02/04/18) Physical Therapy Treatment Note M2 PT-IP Current Condition Start: 02/04/18 16:09 Freq: NEEDED Status: Active Protocol: Document 02/05/18 10:15 RCC (Rec: 02/05/18 10:31 RCC [id number]) Physical Therapy Current Condition Current Condition Evaluation Date 02/05/18 Treatment Diagnosis fall down stairs, impaired mobility Precautions Other Precautions R shoulder painful M3 PT-IP Subjective Start: 02/04/18 16:09 Freq: NEEDED Status: Active Protocol: Document 02/06/18 14:39 SA (Rec: 02/06/18 14:50 SA [id number]) Subjective Physical Therapy Visit Type Type Treatment Note Visit Start Time 14:00 Visit Stop Time 14:23 Total Visit Minutes 23 Notes Pt up in chair and agreeable to therapy. Still with flat affect. Number of RED HAT ENGINEER Visits 3 Physical Therapy Visit Comments Patient Comments PT timed for 45 min after pain medication and pt rates R shoulder/back pain as 4/10. Therapy Pain Assessment Pain When Pain Assessed During Mobility Pain Present Pain Present Pain Reported Location Back Intensity 4 Scale Used Stauffer-Fagan (Faces) Pain Management Techniques Apply Cold Re-positioning Timing of Activity with Medications M4 PT-IP Mobility and Gait Start: 02/04/18 16:09 Freq: NEEDED Status: Active Protocol: Document 02/06/18 14:39 SA (Rec: 02/06/18 14:50 SA [id number]) PT-Transfer Assessment Sit to and From Stand Sit to and from Stand Moderate Assistance 1 Person Assistance Use of Upper Extremities Equipment Transfer Assistive Device Gait Belt Front Wheeled Walker Transfers Transfer Destination Chair Transfer Technique Stand Step Pivot Transfer Ability Level of Assist Contact Guard Assistance Comments Mobility Comments Pt with stataic standing again for about 3 minutes. Cues for posture and safe use of FWW. Gait Assessment Gait Gait Assistance Required: Contact Guard Assist Distance (Feet) 8 Able to Maintain Weight Bearing Status Yes During Gait Assistive Devices Assistive Device Gait Belt Front Wheeled Walker Gait Deviations General Gait Pattern Antalgic Decreased Stride Length Decreased Feet Clearance Flexed Trunk Step-to Gait Factors Limiting Gait Function Factors Limiting Gait Function Decreased Activity Tolerance Decreased Strength Pain Poor Balance Comments Gait Comments Pt continues to be easily confused and needs clear cues. Walked 8 feet forward and backward with FWW and CGA. M5 PT-IP Objective Assessments Start: 10/30/18 16:09 Freq: NEEDED Status: Active Protocol: Document 02/05/18 10:15 RCC (Rec: 02/05/18 10:31 RCC [email or web address]) Orientation Orientation/Cognition Level of Alertness Alert Orientation Name Age Birthday Month Date Place Situation Gross Range of Motion Upper Extremity ROM Assessment Right Impaired Impairments R shoulder flexion limited to lifting arm off of arm rest of chair, but no further. Lower Extremity ROM Assessment Within Functional Limits Strength Upper Extremity Strength Assessment Right Impaired Lower Extremity Strength Assessment Bilaterally Impaired Hip flexion R 3+/5 and L 4/5 Knee flexion and extension 4/5 B Ankle DF 4+/5 R and 5/5 L Comments Strength Comments unable to test RUE with MMT due to pain. M6 PT-IP Treatment Start: 02/04/18 16:09 Freq: NEEDED Status: Active Protocol: Document 02/06/18 14:39 SA (Rec: 02/06/18 14:50 [id number]) Physical Therapy Treatment Exercises Exercises Ankle Pumps Gluteal Sets Short Arc Quads Seated Knee Flexion/Extension Knee ROM Measurement seated marching Education Education Provided Precautions Post-Op Packet Safety Other Treatments Other Treatment Performed Completed exercises in sitting . Tolerated treatment well. M7 PT-IP Assessment and Plan Start: 02/04/18 16:09 Freq: NEEDED Status: Active Protocol: Document 02/06/18 14:39 SA (Rec: 02/06/18 14:50 [id number]) PT Summary Assessment and Plan Potential Rehabilitation Potential Good Status of Condition at Evaluation Evolving Summary Assessment Summary Poor activity tolerance and safety awareness. Continued to progress gait/balance as able . Frequency of Treatment Frequency Of Treatment Twice a Day Recommendations To Nursing Amount of Assist Needed 2 Person Assist Discharge Recommendations PT Discharge Recommendations SNF Rehab
--- NOTE | 2018-02-06 16:03 | OT.IP.TRT ---
Current Diagnoses Multiple fractures of ribs, right side, initial encounter for closed fracture (02/04/18) Occupational Therapy Treatment Note M2 OT-IP Current Condition Start: 02/04/18 14:08 Freq: Status: Active Protocol: Document 02/05/18 11:23 PJM (Rec: 02/05/18 13:21 [facility] [id number]) Occupational Therapy Current Condition Current Condition Evaluation Date 02/05/18 Treatment Diagnosis decreased self care, all mobility s/p fall down stairs w/LOC,mult R rib fx Post Operative Precautions Other Precautions R shoulder painful, fall risk, R rib fx's 1-5 M3 OT- IP Subjective and Pain Start: 02/04/18 14:08 Freq: Status: Active Protocol: Document 02/06/18 16:02 PJM (Rec: 02/06/18 16:03 [facility] [id number]) OT- Subjective Occupational Therapy Visit Type Type Administrative Note Visit Start Time 15:00 Notes Attempted to see pt x2, but he was with P.T. then with S.T. Will attempt again in AM.
[2018-02-06] MEDS: TAMSULOSIN 0.4 MG CAPSULE PO (16:26)
--- NOTE | 2018-02-06 16:43 | PC.NURSE ---
Oanh shift note: Patient awake and alert, oriented to self, time, place, and date, not oriented to place. Continue on RA with O2 sat 95%. No SOB or difficulty breathing noted. at bedside, states was concerned with his mental status this am due to forgetfulness, however states he appears more alert this evening. Dr. Durham at bedside with patient and , new order obtained for chest Xry and PRN breathing treatments. Encouraged patient to deep breath, splint, and use IS.
--- NOTE | 2018-02-06 17:20 | PC.NURSE ---
Evening Student Nurse Patient went to have chest xray at 1650 with pilot plant research technician. Patient stable, tolerated transfer to wheelchair. Returned 1700 patient stable no complaints, returned to recliner.
--- NOTE | 2018-02-06 20:53 | PC.NURSE ---
Oanh shift note: Notified Dr. Hector regarding the report of chest XRAY ordered this evening, orders obtained to initiate Unasyn 3G IV Q8H in addition to order repeat chest XRAY, PA lateral on Feb 08. Patient continue on RA, O2 sat 98%, refused Albuterol treatment by RT.
[2018-02-06] MEDS: SODIUM CHLORIDE 0.9% FLUSH 10 ML IV (21:18)
[2018-02-06] MEDS: AMPICILLIN/SULBACTAM 3 GM 3 GM in SODIUM CHLORIDE 0.9% 100 ML IV (21:24)
[2018-02-06] MEDS: METOPROLOL TARTRATE 5 MG/5 ML INJ IV (22:50)
[2018-02-06] MEDS: SODIUM CHLORIDE 0.9% 1,000 ML 100 ML IV (23:00)
[2018-02-06] MEDS: dilTIAZem 5 MG/ML SDV IV (23:05)
[2018-02-06] MEDS: dilTIAZem 125 MG in DEXTROSE 5 % IN WATER 100 ML IV (23:30)
--- NOTE | 2018-02-06 23:48 | PC.NURSE ---
2225: Patient awake and alert, up out of bed to [facility], noted with increased heart rate, received call from ICU regarding Afib RVR up to 180-200 sustained, patient diaphoretic. Assisted back into chair, placed call to Dr. Avis gregory. Notified RT for EKG. Placed on O2 at 2L via [place]. 2230: Called Dr. Romero at home, and awaiting for call back from exchange. Placed patient in bed via Louie lift, RT at bedside. EKG Afib RVR with ventricular rate 174. Patient c/o chest pain. No SOB or dizziness. Placed second call to exchange without any response. 2240: No call back from provider, FIELD REVIEWER called by Coordinator. Afib continues sustained 160'-180's. Dr. Lott at bedside, order obtain for Lopressor 5 mg IV. HR continue sustained 150s-160s 2243: Call back by Dr. Romero, updated regarding patients event leading up to clinical change. New order obtained for Cardizem IV 5 mg stat. HR decreased to 140's-158, sustained. 2258: Order obtain for Normal saline @ 100 ml/hr and Cardizem drip per protocol in ICU unit. 2308: Patient continue awake and alert, denies chest pain, dizziness, or SOB. Transferred to ICU with this RN and LUMP ROLLER, tele in place and on O2 via [place]. Report given to Sarahy BARRIOS. Please see VS flowsheet. MAR.
[2018-02-07] VITALS (17 sets, daily range): BP systolic 100–159; BP diastolic 46–99; PULSE 81–159; RESP 14–28; TEMP 36.4–37.1; O2SAT 91–99
[2018-02-07] MEDS: OXYCODONE IR 5 MG TABLET 10 MG PO ×6 (00:52→19:07)
--- NOTE | 2018-02-07 01:02 | PC.NURSE ---
Called Dr. Romero at 0055 to inform him diltiazem gtt was at 15mg/hr, he advised to increase gtt to 20mg/hr as long as BP was stable.
[2018-02-07] MEDS: LORazepam 2 MG/ML SYRINGE 0.5 MG IV (02:27)
--- NOTE | 2018-02-07 02:36 | PC.NURSE ---
Patient states we have his phone, we have looked through his belongings at bedside, co-ordinator notified and states it is not locked up upstairs. Denies that he got pain medication, when given ativan, he states he doesn't like it. On the phone with his stating we won't listen or give him his phone that he is too anxious to sleep.
--- NOTE | 2018-02-07 03:00 | PC.NURSE ---
Won't wear CPAP, unable to comprehend his cell phone that was found is sitting on his chest, he will touch it, then say he can't find it.
--- NOTE | 2018-02-07 04:40 | ED.CHESTPAIN ---
HPI - Chest Pain General Chief Complaint: Trauma Stated Complaint: Fall Down Stairs on blood thinners Time Seen by Provider: 02/03/18 22:08 Related Data Home Medications Medication Instructions Recorded Confirmed atorvastatin [Lipitor] 40 mg PO DAILY 11/16/17 02/04/18 omeprazole 10 mg PO DAILY 11/16/17 02/04/18 warfarin [Coumadin] 2.5 mg PO 5XW 11/16/17 02/04/18 warfarin [Coumadin] 5 mg PO 2XW 11/16/17 02/04/18 allopurinol 300 mg PO DAILY 12/12/17 02/04/18 metoprolol succinate 50 mg PO BID 12/12/17 02/04/18 tamsulosin 1 cap PO QPM 12/12/17 02/04/18 desoximetasone 1 applic TOPICAL DAILY 02/04/18 02/04/18 hydrocodone-acetaminophen 2 tab PO Q4H PRN 02/04/18 02/04/18 lisinopril 5 mg PO DAILY 02/04/18 02/04/18 Allergies Allergy/AdvReac Type Severity Reaction Status Date / Time No Known Drug Allergies Allergy Verified 11/16/17 18:35 Review of Systems Constitutional Reports frequent falls ENT Ears, Nose, Mouth, and Throat: Denies vertigo and Denies dizziness Musculoskeletal Denies numbness and Denies tingling Neurologic Denies vertigo, Denies dizziness, Reports frequent falls, Denies numbness and Denies tingling PFSH Medical History Atrial fibrillation (Acute) CAD (coronary artery disease) (Acute) HTN (hypertension) (Acute) Hyperlipidemia (Acute) Surgical History Hx of CABG (Acute) Family History: Reviewed 02/04/18 by Enrike Arce MD Social History household members: spouse Smoking Status: Unknown if ever smoked alcohol intake: current Exam Initial Vital Signs Initial Vital Signs: Vital Signs Pulse Rate 80 02/03/18 22:00 Respiratory Rate 23 02/03/18 22:00 Blood Pressure 139/67 02/03/18 22:00 Pulse Oximetry 92 02/03/18 22:00 Course Orders Ordered: ED Orders 02/07/18 BMP [Basic Metabolic Panel] Urgent CBC [Complete Blood Count AUTO DIFF] Urgent 02/08/18 08:00 XR chest 3V Routine Acetaminophen (Tylenol) 650 mg PO Q6HR PRN PRN Reason: As Needed for Fever/Mild Pain Last Admin: 02/05/18 20:06 Dose: 650 mg Admin: 02/05/18 14:31 Dose: 650 mg Admin: 02/05/18 08:37 Dose: 650 mg Albuterol (Ventolin) 2.5 mg INH RTBID [facility] Last Admin: 02/06/18 19:40 Dose: Not Given Allopurinol (Zyloprim) 300 mg PO DAILY [facility] Last Admin: 02/06/18 09:37 Dose: 300 mg Admin: 02/05/18 08:40 Dose: 300 mg Admin: 02/04/18 08:54 Dose: 300 mg Atorvastatin Calcium (Lipitor) 40 mg PO DAILY [facility] Last Admin: 02/06/18 09:33 Dose: 40 mg Admin: 02/05/18 08:40 Dose: 40 mg Admin: 02/04/18 08:55 Dose: 40 mg Docusate Sodium (Colace) 100 mg PO BID [facility] Last Admin: 02/06/18 21:17 Dose: 100 mg Admin: 02/06/18 09:36 Dose: 100 mg Admin: 02/05/18 20:07 Dose: 100 mg Admin: 02/05/18 08:40 Dose: 100 mg Admin: 02/04/18 21:11 Dose: 100 mg Admin: 02/04/18 08:53 Dose: 100 mg Enoxaparin Sodium (Lovenox) 40 mg SUBCUT DAILY [facility] Last Admin: 02/06/18 09:37 Dose: 40 mg Admin: 02/05/18 09:36 Dose: 40 mg Admin: 02/04/18 08:53 Dose: 40 mg Ampicillin Sodium/Sulbactam (Sodium 3 gm/ Sodium Chloride) 100 mls @ 100 mls/hr IV Q8H [facility] Last Infusion: 02/07/18 00:07 Dose: 0 mls/hr Admin: 02/06/18 21:24 Dose: 100 mls/hr Sodium Chloride (Normal Saline 0.9%) 1,000 mls @ 100 mls/hr IV CONT [facility] Last Admin: 02/06/18 23:00 Dose: 100 mls/hr Diltiazem HCl 125 mg/ Dextrose 125 mls @ 5 mls/hr IV TITRATE [facility]; Protocol Last Titration: 02/07/18 01:02 Dose: 20 mg/hr, 20 mls/hr Titration: 02/07/18 00:04 Dose: 15 mg/hr, 15 mls/hr Titration: 02/06/18 23:45 Dose: 10 mg/hr, 10 mls/hr Admin: 02/06/18 23:30 Dose: 5 mg/hr, 5 mls/hr Lisinopril (Zestril) 5 mg PO DAILY [facility] Last Admin: 02/06/18 09:37 Dose: 5 mg Admin: 02/05/18 08:41 Dose: 5 mg Admin: 02/04/18 08:54 Dose: 5 mg Lorazepam (Ativan) 0.5 mg IV Q4HR PRN PRN Reason: Anxiety Last Admin: 02/07/18 02:27 Dose: 0.5 mg Admin: 02/06/18 03:18 Dose: 0.5 mg Magnesium Hydroxide (Milk Of Magnesia) 30 ml PO DAILY PRN PRN Reason: Constipation Metoprolol Succinate (Toprol Xl) 50 mg PO BID [facility] Last Admin: 02/06/18 21:17 Dose: 50 mg Admin: 02/06/18 09:36 Dose: 50 mg Admin: 02/05/18 20:06 Dose: 50 mg Admin: 02/05/18 08:41 Dose: 50 mg Admin: 02/04/18 21:11 Dose: 50 mg Admin: 02/04/18 08:54 Dose: 50 mg Oxycodone HCl (Percolone) 10 mg PO Q3HR PRN PRN Reason: Pain, Severe (7-10) Last Admin: 02/07/18 00:52 Dose: 10 mg Admin: 02/06/18 21:19 Dose: 10 mg Admin: 02/06/18 16:26 Dose: 10 mg Admin: 02/06/18 13:21 Dose: 10 mg Admin: 02/06/18 09:47 Dose: 10 mg Admin: 02/06/18 06:36 Dose: 10 mg Admin: 02/06/18 00:30 Dose: 10 mg Admin: 02/05/18 20:07 Dose: 10 mg Admin: 02/05/18 17:14 Dose: 10 mg Admin: 02/05/18 14:31 Dose: 10 mg Admin: 02/05/18 11:26 Dose: 10 mg Admin: 02/05/18 08:36 Dose: 10 mg Pantoprazole Sodium (Protonix) 20 mg PO 0600 [facility] Last Admin: 02/06/18 06:36 Dose: 20 mg Admin: 02/05/18 05:13 Dose: 20 mg Sodium Chloride (Normal Saline 0.9% Flush) 10 ml IV PRN PRN PRN Reason: Flush Sodium Chloride (Normal Saline 0.9% Flush) 10 ml IV BID [facility] Last Admin: 02/06/18 21:18 Dose: 10 ml Admin: 02/06/18 09:38 Dose: Admin: 02/05/18 20:08 Dose: Admin: 02/05/18 08:41 Dose: Admin: 02/04/18 19:53 Dose: Admin: 02/04/18 10:11 Dose: 10 ml Tamsulosin HCl (Flomax) 0.4 mg PO 1700 [facility] Last Admin: 02/06/18 16:26 Dose: 0.4 mg Admin: 02/05/18 17:21 Dose: 0.4 mg Admin: 02/04/18 16:54 Dose: 0.4 mg Discontinued Medications Acetaminophen (Tylenol) 650 mg PO NOW ONE Stop: 02/03/18 23:31 Last Admin: 02/03/18 23:41 Dose: 650 mg Hydrocodone Bitart/Acetaminophen (Patterson 5/325) 2 tab PO NOW ONE Stop: 02/04/18 01:45 Last Admin: 02/04/18 02:14 Dose: 2 tab Hydrocodone Bitart/Acetaminophen (Patterson 5/325) 1 tab PO Q4HR PRN PRN Reason: Pain, Moderate (4-6) Last Admin: 02/04/18 05:39 Dose: 1 tab Diltiazem HCl (Cardizem) 5 mg IV NOW ONE Stop: 02/06/18 22:58 Last Admin: 02/06/18 23:05 Dose: 5 mg Sodium Chloride (Normal Saline 0.9%) 1,000 mls @ 150 mls/hr IV BOLUS ONE Stop: 02/04/18 04:49 Last Infusion: 02/04/18 13:57 Dose: 0 mls/hr Admin: 02/03/18 23:41 Dose: 150 mls/hr Lactated Ringer's (Lactated Ringers) 1,000 mls @ 125 mls/hr IV CONT [facility] Last Admin: 02/06/18 09:34 Dose: 125 mls/hr Infusion: 02/06/18 08:30 Dose: 125 mls/hr Admin: 02/06/18 00:30 Dose: 125 mls/hr Infusion: 02/05/18 21:00 Dose: 125 mls/hr Admin: 02/05/18 13:00 Dose: 125 mls/hr Infusion: 02/05/18 13:00 Dose: 125 mls/hr Admin: 02/05/18 05:13 Dose: 125 mls/hr Infusion: 02/05/18 05:13 Dose: 125 mls/hr Admin: 02/04/18 21:38 Dose: 125 mls/hr Infusion: 02/04/18 21:38 Dose: 125 mls/hr Admin: 02/04/18 13:57 Dose: 125 mls/hr Metoprolol Tartrate (Lopressor) 5 mg IV NOW STA Stop: 02/06/18 22:50 Last Admin: 02/06/18 22:50 Dose: 5 mg Oxycodone HCl (Percolone) 10 mg PO Q3HR PRN PRN Reason: Pain, Severe (7-10) Last Admin: 02/05/18 05:13 Dose: 10 mg Admin: 02/05/18 00:54 Dose: 10 mg Admin: 02/04/18 21:37 Dose: 10 mg Oxycodone/Acetaminophen (Percocet 5/325) 2 tab PO Q4HR PRN PRN Reason: Pain, Severe (7-10) Last Admin: 02/04/18 16:54 Dose: 2 tab Admin: 02/04/18 12:44 Dose: 2 tab Admin: 02/04/18 08:53 Dose: 2 tab Vital Signs - 8 hr 02/06/18 21:17 02/06/18 22:45 02/06/18 22:50 Temperature Pulse Rate 99 H 151 H 164 H Respiratory Rate 22 22 Blood Pressure 154/69 H 142/85 H Pulse Oximetry 92 94 02/06/18 23:05 02/06/18 23:30 02/06/18 23:37 Temperature 99.2 F Pulse Rate 180 H 148 H 166 H Respiratory Rate 14 Blood Pressure 130/90 134/86 134/86 Pulse Oximetry 92 02/06/18 23:47 02/07/18 00:16 02/07/18 01:00 Temperature Pulse Rate 159 H 136 H Respiratory Rate 22 18 Blood Pressure 130/90 112/85 Pulse Oximetry 91 93 02/07/18 01:30 02/07/18 02:00 02/07/18 03:11 Temperature Pulse Rate 150 H 150 H 138 H Respiratory Rate 18 18 Blood Pressure 159/88 H 157/99 H 100/46 L Pulse Oximetry 93 MDM - Chest Pain Lab Data Result diagrams: 02/06/18 07:11 02/06/18 07:11 Lab Results 02/03/18 02/03/18 02/03/18 Range/Units 22:36 22:36 22:36 WBC 10.3 (4.5-11.0) X10^3/uL RBC 4.48 L (4.5-5.9) X10^6/uL Hgb 14.5 (13.5-17.5) g/dL Hct 42.8 (41-53) % MCV 95.6 (80-100) fL MCH 32.3 (26-34) PG MCHC 33.8 (30-36) % RDW 14.1 (11.6-14.8) % Plt Count 218 (150-400) X10^3/uL Neut % (Auto) 57.4 (50-75) % Lymph % (Auto) 32.7 (25-40) % [place] % (Auto) 7.9 (3-14) % Eos % (Auto) 1.3 L (2-4) % Baso % (Auto) 0.7 (0-2) % Neut # (Auto) 5900 (0095-3111) /uL PT 29.6 H (10.1-12.7) SECONDS INR 2.7 H (0.9-1.3) Sodium 142 (137-145) mmol/L Potassium 3.5 (3.4-5.1) mmol/L Chloride 102 (98-107) mmol/L Carbon Dioxide 29 (22-32) mmol/L BUN 18 (9-20) mg/dL Creatinine 0.70 (0.66-1.25) mg/dL Estimated GFR > 60.0 (>60) mL/min BUN/Creatinine Ratio 25.7 H (6-22) Glucose 109 (80-110) mg/dL Calcium 8.9 (8.4-10.2) mg/dL Total Bilirubin 0.4 (0.2-1.3) mg/dL AST 76 H (17-59) IU/L ALT 53 (21-72) IU/L Alkaline Phosphatase 43 (38-126) U/L Total Creatine Kinase 104 (55-170) U/L CK-MB (CK-2) 1.47 (<2.37) ng/mL CK-MB (CK-2) Rel Index 1.4 L (1.5-5.0) % Troponin I < 0.012 (0.01-0.034) ng/mL Total Protein 7.1 (6.3-8.2) g/dL Albumin 4.4 (3.5-5.0) g/dL Globulin 2.7 (1.7-4.1) g/dL Albumin/Globulin Ratio 1.6 (1.0-2.8) Nasal Screen MRSA (PCR) (Negative) 02/04/18 02/05/18 02/05/18 Range/Units 02:40 05:14 05:14 WBC 8.7 (4.5-11.0) X10^3/uL RBC 3.49 L (4.5-5.9) X10^6/uL Hgb 11.5 L (13.5-17.5) g/dL Hct 32.9 L (41-53) % MCV 94.3 (80-100) fL MCH 32.8 (26-34) PG MCHC 34.8 (30-36) % RDW 14.0 (11.6-14.8) % Plt Count 157 (150-400) X10^3/uL Neut % (Auto) 68.0 (50-75) % Lymph % (Auto) 22.0 L (25-40) % [place] % (Auto) 9.1 (3-14) % Eos % (Auto) 0.4 L (2-4) % Baso % (Auto) 0.5 (0-2) % Neut # (Auto) 5900 (9618-1495) /uL PT (10.1-12.7) SECONDS INR (0.9-1.3) Sodium 138 (137-145) mmol/L Potassium 3.5 (3.4-5.1) mmol/L Chloride 102 (98-107) mmol/L Carbon Dioxide 27 (22-32) mmol/L BUN 12 (9-20) mg/dL Creatinine 0.50 L (0.66-1.25) mg/dL Estimated GFR > 60.0 (>60) mL/min BUN/Creatinine Ratio 24.0 H (6-22) Glucose 119 H (80-110) mg/dL Calcium 8.6 (8.4-10.2) mg/dL Total Bilirubin (0.2-1.3) mg/dL AST (17-59) IU/L ALT (21-72) IU/L Alkaline Phosphatase (38-126) U/L Total Creatine Kinase (55-170) U/L CK-MB (CK-2) (<2.37) ng/mL CK-MB (CK-2) Rel Index (1.5-5.0) % Troponin I (0.01-0.034) ng/mL Total Protein (6.3-8.2) g/dL Albumin (3.5-5.0) g/dL Globulin (1.7-4.1) g/dL Albumin/Globulin Ratio (1.0-2.8) Nasal Screen MRSA (PCR) Negative for mrsa (Negative) 02/06/18 02/06/18 Range/Units 07:11 07:11 WBC 9.2 (4.5-11.0) X10^3/uL RBC 3.36 L (4.5-5.9) X10^6/uL Hgb 10.8 L (13.5-17.5) g/dL Hct 31.8 L (41-53) % MCV 94.6 (80-100) fL MCH 32.1 (26-34) PG MCHC 34.0 (30-36) % RDW 14.0 (11.6-14.8) % Plt Count 161 (150-400) X10^3/uL Neut % (Auto) 74.4 (50-75) % Lymph % (Auto) 14.9 L (25-40) % [place] % (Auto) 9.4 (3-14) % Eos % (Auto) 0.7 L (2-4) % Baso % (Auto) 0.6 (0-2) % Neut # (Auto) 6800 H (0882-2915) /uL PT (10.1-12.7) SECONDS INR (0.9-1.3) Sodium 138 (137-145) mmol/L Potassium 3.6 (3.4-5.1) mmol/L Chloride 100 (98-107) mmol/L Carbon Dioxide 27 (22-32) mmol/L BUN 10 (9-20) mg/dL Creatinine 0.50 L (0.66-1.25) mg/dL Estimated GFR > 60.0 (>60) mL/min BUN/Creatinine Ratio 20.0 (6-22) Glucose 150 H (80-110) mg/dL Calcium 8.7 (8.4-10.2) mg/dL Total Bilirubin (0.2-1.3) mg/dL AST (17-59) IU/L ALT (21-72) IU/L Alkaline Phosphatase (38-126) U/L Total Creatine Kinase (55-170) U/L CK-MB (CK-2) (<2.37) ng/mL CK-MB (CK-2) Rel Index (1.5-5.0) % Troponin I (0.01-0.034) ng/mL Total Protein (6.3-8.2) g/dL Albumin (3.5-5.0) g/dL Globulin (1.7-4.1) g/dL Albumin/Globulin Ratio (1.0-2.8) Nasal Screen MRSA (PCR) (Negative) Discharge Plan Departure Patient Disposition: Admitted as Observation Clinical Impression: Head injury, Laceration of scalp, Chronic pain in right shoulder Discharge Date/Time: 02/04/18 02:30 Interventions: ED Discharge Assessment Last Done: 02/04/18 02:44 Admit Date/Time: 02/04/18 01:58 Admit Provider: Enrike Arce
[2018-02-07] MEDS: AMPICILLIN/SULBACTAM 3 GM 3 GM in SODIUM CHLORIDE 0.9% 100 ML IV ×3 (04:58→21:17)
[2018-02-07] MEDS: PANTOPRAZOLE 20 MG TABLET PO ×2 (05:11→08:05)
[2018-02-07 05:32] LABS: Add Manual Diff / Slide Review NO; Basophils Percent Auto 0.5 % (0-2); Eosinophils Percent Auto 1.1 % (2-4); Hematocrit 31.8 % (41-53); Hemoglobin 10.7 g/dL (13.5-17.5); Lymphocytes Percent Auto 13.9 % (25-40); Mean Corpuscular HGB Conc 33.6 % (30-36); Mean Corpuscular Hemoglobin 31.9 PG (26-34); Monocytes Percent Auto 9.7 % (3-14); Neutrophils Absolute Auto 7800 /uL (3000-5900); Neutrophils Percent Auto 74.8 % (50-75); Platelet Count 175 X10^3/uL (150-400); Red Blood Cell Count 3.34 X10^6/uL (4.5-5.9); White Blood Cell Count 10.5 X10^3/uL (4.5-11.0)
[2018-02-07 05:36] LABS: Blood Urea Nitrogen 8 mg/dL (9-20); Calcium 8.3 mg/dL (8.4-10.2); Carbon Dioxide 27 mmol/L (22-32); Chloride 99 mmol/L (98-107); Estimated Glomerular Filt Rate > 60.0 mL/min (>60); Glucose 132 mg/dL (80-110); HEMOLYSIS < 15 (0-50); Potassium 3.5 mmol/L (3.4-5.1); Sodium 137 mmol/L (137-145)
[2018-02-07] MEDS: dilTIAZem 125 MG in DEXTROSE 5 % IN WATER 100 ML 20 ML IV (06:16)
[2018-02-07] MEDS: ACETAMINOPHEN 325 MG TABLET 650 MG PO (08:05)
[2018-02-07] MEDS: SODIUM CHLORIDE 0.9% FLUSH 10 ML IV ×2 (08:05→21:20)
[2018-02-07] MEDS: ATORVASTATIN 20 MG TABLET 40 MG PO (08:06)
[2018-02-07] MEDS: DOCUSATE 100 MG CAPSULE PO ×2 (08:06→21:20)
[2018-02-07] MEDS: LISINOPRIL 5 MG TABLET PO (08:06)
[2018-02-07] MEDS: ENOXAPARIN 40 MG/0.4 ML SYRINGE SUBCUT (08:06)
[2018-02-07] MEDS: ALLOPURINOL 300 MG TABLET PO (08:06)
[2018-02-07] MEDS: METOPROLOL ER 50 MG TABLET PO ×2 (08:30→21:20)
[2018-02-07] MEDS: METOPROLOL IR 50 MG TABLET PO ×2 (09:28→17:14)
[2018-02-07 09:38] LABS: Creatine Kinase 174 U/L (55-170)
[2018-02-07] MEDS: SODIUM CHLORIDE 0.9% 1,000 ML 100 ML IV ×2 (09:45→21:16)
[2018-02-07 09:51] LABS: Troponin I 0.029 ng/mL (0.01-0.034)
[2018-02-07 09:54] LABS: CKMB % Relative Index 0.7 % (1.5-5.0); Creatine Kinase MB 1.21 ng/mL (<2.37)
--- NOTE | 2018-02-07 11:35 | OT.IP.TRT ---
Current Diagnoses Multiple fractures of ribs, right side, initial encounter for closed fracture (02/04/18) Occupational Therapy Treatment Note M2 OT-IP Current Condition Start: 02/04/18 14:08 Freq: Status: Active Protocol: Document 02/05/18 11:23 [facility] (Rec: 02/05/18 13:21 [facility] [id number]) Occupational Therapy Current Condition Current Condition Evaluation Date 02/05/18 Treatment Diagnosis decreased self care, all mobility s/p fall down stairs w/LOC,mult R rib fx Post Operative Precautions Other Precautions R shoulder painful, fall risk, R rib fx's 1-5 M3 OT- IP Subjective and Pain Start: 02/04/18 14:08 Freq: Status: Active Protocol: Document 02/07/18 11:31 [facility] (Rec: 02/07/18 11:35 [facility] [id number]) OT- Subjective Occupational Therapy Visit Type Type Treatment Note Visit Start Time 11:15 Visit Stop Time 11:25 Total Visit Minutes 10 Notes Pt agreeable to get up as states his bottom hurts. OT Pain Assessment Pain When Pain Assessed At Rest Pain Present Pain Present Pain Reported Location Back Intensity 5 M4 OT- IP ADL's Start: 02/04/18 14:08 Freq: Status: Active Protocol: Document 02/05/18 11:23 [facility] (Rec: 02/05/18 13:21 [facility] [id number]) OT [id number] General Evaluation Self-Feeding Ability Standby Assistance Comments OT Self-Feeding Comments Pt needs assist with meal tray set up; does some self feeding with non dominant L hand due to R shoulder pain; e .g. drinking from cup. OT ADL-Grooming General Evaluation Grooming Ability Standby Assistance Minimal Assistance Areas Needing Assistance Retrieving/Set-up of Grooming Items Combing/Brushing Hair Face Washing Comments OT Grooming Comments SBA to wash face, min assist to comb hair in back iwth L hand; fair thoroughness OT ADL-Oral Care General Eval Oral Care Ability Standby Assistance Areas of Assistance Retrieving/Set-Up of Items Devices Oral Care Devices Toothbrush Comments Oral Care Comments SBA and min cues to problem solve unfamiliar set up seated in chair OT ADL-Dressing General Eval Upper Body Dressing Ability Maximum Assistance Lower Body Dressing Ability Total Assistance Comments OT Dressing Comments R shoulder pain and new rib pain interfere with any attempt at dressing today. OT ADL-Toileting General Evaluation Toileting Ability Maximum Assistance Areas Needing Assistance Manage Clothing Perform Perineal Hygiene Devices Toileting Assistive Devices Urinal OT ADL-Bathing Bathing Type Bathing Type Sponge Bath General Evaluation Bathing Ability Maximal Assistance M5 OT- IP IADL's Start: 02/04/18 14:08 Freq: Status: Active Protocol: Document 02/05/18 11:23 [facility] (Rec: 02/05/18 13:21 [facility] [id number]) OT-Instrumental Activities of Daily Living Deficits IADL Deficits Identified No Deficits Home Safety Awareness Awareness of Need for Assistance at Home Decreased Awareness Medication Management Medication Management Comments not here to confirm home situation Money Management Money Management Comments not here to confirm home situation Meal Preparation Meal Preparation Comments not here to confirm home situation Global Technical Writer Global Technical Writer Comments not here to confirm home situation Driving Driving Comments Pt states he and both drive. M6 OT- IP Functional Cognition Start: 02/04/18 14:08 Freq: Status: Active Protocol: Document 02/05/18 11:23 [facility] (Rec: 02/05/18 13:21 [facility] [id number]) Cognitive Factors Limiting Selfcare Function Cognitive Ability Level of Alertness Alert Patient Orientation Name Month Date Year Situation Attention Span Ability Capable of Focused Attention Ability to Follow Commands Able to Follow One Step Commands Safety Awareness Underestimates Need for Assistance Problem Solving Ability Needs Assist to Identify Solutions Executive Function Ability Unable to Remember Details Cognitive Comments Cognitive Assessment Comments Pt presents with slowed speed of processing and conversation tangential at times. ? pain med related vs concussion per chart notes. Pt does not recall fall. OT- Vision and Hearing OT- Hearing Assessment OT- Hearing Assessment WFL OT- Vision Assessment Visual Acuity WFL Vision Assessment Comments Pt states he does not wear glasses. M7 OT- IP Mobility and Balance Start: 02/04/18 14:08 Freq: Status: Active Protocol: Document 02/07/18 11:31 [facility] (Rec: 02/07/18 11:35 [facility] [id number]) OT-Transfer Assessment Sit to and From Stand Sit to and from Stand Moderate Assistance 1 Person Assistance Comments Mobility Comments Pt agreeable to stand and able to do so MODA X 1 and stand for 1 minute. Afterwards pt states did not want to do anymore. Pt's o2 on RA dropped to 91% after standing and increased to 97% within one minute. Encouraged pt to call for nursing to stand at times as well. Pt able to scoot forwards with CGA from back of the recliner. OT- Balance Assessment Standing Balance and Reactions Static Standing Balance Ability Fair M8 OT- IP Objective Assessments Start: 02/04/18 14:08 Freq: Status: Active Protocol: Document 02/05/18 11:23 [facility] (Rec: 02/05/18 13:21 [facility] [id number]) OT Gross Range of Motion Upper Extremity Range of Motion Assessment Right Impaired ROM Impairments RUE: AAROM: pt tolerates shoulder flex to 70 then limited by pain. Pt declines abdunction due to pain. 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 Edema Edema Present Edema Comments Mod edema dorsum of R hand. Pt educated re: elevation and fist pumping. M9 OT- IP Assessment and Plan Start: 02/04/18 14:08 Freq: Status: Active Protocol: Document 02/07/18 11:31 [facility] (Rec: 02/07/18 11:35 [facility] [id number]) OT Summary Assessment and Plan Potential Analytic Complexity at Evaluation Moderate Summary OT Impairments Pain Range of Motion Strength Balance Coordination Functional Cognition Functional Mobility Self-Feeding Grooming Dressing Toileting Bathing Toilet Transfers Shower Transfers Assessment Summary Skilled rehab recommended due to still needing extensive assist for ADl's and mobility. Goals Days to Meet Goals 5 Frequency of Treatment Frequency Of Treatment Once a Day Treatment Plan OT Treatment Plan ADL Training Functional Cognition Training Functional Mobility Patient/Family Education Discharge Planning Discharge Recommendations OT Discharge Recommendations SNF Rehab
--- NOTE | 2018-02-07 13:04 | CM.DPC ---
Referral faxed to [facility] per Narda
--- NOTE | 2018-02-07 13:05 | CM.DPC ---
DCP: continued: Case again received and EMR for last few days reviewed. Met then with pt and his Mary Anne to continue the discussion re rehab options with continued recommendation by care team and physician team that snf rehab will be needed before pt and d/c to home. Mary Anne reports that she did tour [facility], [facility] and [facility]. After much discussion decision is identified as [facility] primarily because Dr. Arce is agreeing to follow pt while he is there. Mary Anne is very supportive of this decision. She has discussed ? of pvt rooms with the various snfs but says there are currently no pvt rooms available. Did let them know that [facility] will typically place a Medicare pt in a small pvt room but these do have a shared bathroom. After more discussion between pt and his : decision: [facility] with window bed ([facility]ohanna has confirmed this is available for pt). Dr. Miller joined the conversation and confirmed that Dr. Arce would follow at the [facility]. Pt and Mary Anne will plan for home after the snf stay with [facility] to follow. (they did see pt for about 2 weeks after his last admission here). Johanna/[facility] is updated and [facility] has faxed initial referral information to her now. P: [facility] when stable for same.....Need: [facility]
--- NOTE | 2018-02-07 13:29 | PM.PN.1 ---
Subjective Date Patient Seen: 02/07/18 Time Patient Seen: 12:31 Interval history: Chief complaint patient hospital following a fall at home with several broken ribs the upper chest on both sides with significant bleeding secondary to anticoagulation for his atrial fibrillation. HPI patient has been in the hospital for 2 days now has gone back into atrial fibrillation and currently at this point has good rate control vital signs are good. He is a little discouraged and not been able to just go back home but tremendous amount of pain secondary to broken ribs very limited mobility. Spouse is here monitoring and is concerned about him being back in atrial fibrillation although I think that is just a symptom of his pain and probable secondary pneumonia. Is on antibiotics for that at this point. Past medical history consistent of coronary artery disease with CABG 2. AFib 3. Hypertension 4. Hyperlipidemia 5. Alcohol abuse Social history patient lives here in town and has very attentive spouse who is here with him monitoring his progress Because of his degree of pain and overall disability is going to need to go to the longterm for awhile try to rehabilitate. Patient has been falling significantly some of this could be because of the Parkinson's like issue or alcohol utilization. Exam Vital Signs (past 8 hours): - 02/07/18 06:08 02/07/18 08:00 02/07/18 08:38 Temperature 98.0 F 98.8 F Pulse Rate 115 H 143 H Respiratory Rate 18 28 H Blood Pressure 134/72 121/83 Pulse Oximetry 94 94 97 02/07/18 11:25 02/07/18 12:26 Temperature Pulse Rate 81 Respiratory Rate 16 Blood Pressure 104/54 L Pulse Oximetry 94 96 Oxygen Delivery Method Room Air Oxygen Flow Rate 0 Narrative Exam Narrative: Patient sitting in chair uncomfortable eyes closed quite a bit of discomfort secondary to broken ribs. Heart rate is stable and speech is clear PERRLA Neck without mass or adenopathy Chest tender upper chest and rales and decreased breath sounds diffusely Cardio shows AFib NEIL be pretty regular rhythm and rate good rate control and good vital signs GI shows abdomen nontender no hepatosplenomegaly Back nontender except an upper area where ribs involved more anteriorly Neuro symmetrical and intact to motor and sensory speech clear Extremities with 1+ edema Psych shows patient to be discouraged flat affect Objective Labs Result Diagrams: 02/07/18 05:12 02/07/18 05:12 Labs: Laboratory Results - last 24 hr 02/07/18 02/07/18 02/07/18 05:12 05:12 Unknown WBC 10.5 RBC 3.34 L Hgb 10.7 L Hct 31.8 L MCV 95.0 MCH 31.9 MCHC 33.6 RDW 14.0 Plt Count 175 Neut % (Auto) 74.8 Lymph % (Auto) 13.9 L [place] % (Auto) 9.7 Eos % (Auto) 1.1 L Baso % (Auto) 0.5 Neut # (Auto) 7800 H Sodium 137 Potassium 3.5 Chloride 99 Carbon Dioxide 27 BUN 8 L Creatinine 0.50 L Estimated GFR > 60.0 BUN/Creatinine Ratio 16.0 Glucose 132 H Calcium 8.3 L Total Creatine Kinase 174 H CK-MB (CK-2) 1.21 CK-MB (CK-2) Rel Index 0.7 L Troponin I 0.029 Assessment & Plan Plan: Assessment/Plan Narrative: Assessment 1. Fractured ribs following fall down stairs. May have had a had alcohol involved in that. Continues to have significant discomfort trying to manage with oral pain meds at this point. Very uncomfortable even just lay in bed. This may have been decreasing patient's ventilation which could be a contributing factor for subsequent problems with AFib etc Assessment 2. AFib I think probable combination of pneumonia and chest trauma hypoxia and overall health may have triggered another episode of AFib he had. He had been in this before when he had a fall at the [place] and ended up converting medically following some failed attempts at electronically. Assessment 3. Anticoagulation patient on Lovenox. Dr. kothari anticipated plan is not to have him be on Coumadin secondary to his falling and neurologic weakness Assessment 4. Hypertension blood pressure in good control with current meds at this point also getting good heart rate control in the 70 range and looks very regular may convert Assessment 5 alcohol use. Patient not showing signs of alcohol withdrawal but apparently drinks more than his spouse suggests. Will continue on CIWA protocol Assessment 6 hyperlipidemia. Continue on current regimen of medications for that.
--- NOTE | 2018-02-07 14:03 | PT.IPTN ---
Current Diagnoses Multiple fractures of ribs, right side, initial encounter for closed fracture (02/04/18) Physical Therapy Treatment Note M2 PT-IP Current Condition Start: 02/04/18 16:09 Freq: NEEDED Status: Active Protocol: Document 02/05/18 10:15 RCC (Rec: 02/05/18 10:31 RCC [email or web address]) Physical Therapy Current Condition Current Condition Evaluation Date 02/05/18 Treatment Diagnosis fall down stairs, impaired mobility Precautions Other Precautions R shoulder painful M3 PT-IP Subjective Start: 02/04/18 16:09 Freq: NEEDED Status: Active Protocol: Document 02/07/18 08:58 LJ (Rec: 02/07/18 14:02 LJ [email or web address]) Subjective Physical Therapy Visit Type Type Treatment Note Visit Start Time 08:58 Visit Stop Time 09:22 Total Visit Minutes 24 Notes Pt up in chair. States he needs to use the bathroom. Therapy Pain Assessment Pain When Pain Assessed During Mobility Pain Present Pain Present Pain Reported M4 PT-IP Mobility and Gait Start: 02/04/18 16:09 Freq: NEEDED Status: Active Protocol: Document 02/07/18 08:58 LJ (Rec: 02/07/18 14:02 LJ [email or web address]) PT-Transfer Assessment Sit to and From Stand Sit to and from Stand Moderate Assistance 1 Person Assistance Use of Upper Extremities Equipment Transfer Assistive Device Gait Belt Front Wheeled Walker Transfers Transfer Technique Stand Step Pivot Transfer Ability Level of Assist Contact Guard Assistance Comments Mobility Comments Pt very groggy. Req's mod cues for mobility in chair for scooting and standing w/ proper use of UEs Gait Assessment Gait Gait Assistance Required: Contact Guard Assist Distance (Feet) 6 Able to Maintain Weight Bearing Status Yes During Gait Assistive Devices Assistive Device Gait Belt Front Wheeled Walker Gait Deviations General Gait Pattern Antalgic Decreased Stride Length Decreased Feet Clearance Flexed Trunk Step-to Gait Factors Limiting Gait Function Factors Limiting Gait Function Decreased Activity Tolerance Decreased Strength Pain Poor Balance Comments Gait Comments Pt continues to require mod cueing for posture and sequencing of movement using FWW. M5 PT-IP Objective Assessments Start: 02/04/18 16:09 Freq: NEEDED Status: Active Protocol: Document 02/05/18 10:15 RCC (Rec: 02/05/18 10:31 RCC [email or web address]) Orientation Orientation/Cognition Level of Alertness Alert Orientation Name Age Birthday Month Date Place Situation Gross Range of Motion Upper Extremity ROM Assessment Right Impaired Impairments R shoulder flexion limited to lifting arm off of arm rest of chair, but no further. Lower Extremity ROM Assessment Within Functional Limits Strength Upper Extremity Strength Assessment Right Impaired Lower Extremity Strength Assessment Bilaterally Impaired Hip flexion R 3+/5 and L 4/5 Knee flexion and extension 4/5 B Ankle DF 4+/5 R and 5/5 L Comments Strength Comments unable to test RUE with MMT due to pain. M6 PT-IP Treatment Start: 02/04/18 16:09 Freq: NEEDED Status: Active Protocol: Document 02/06/18 14:39 SA (Rec: 02/06/18 14:50 SA [id number]) Physical Therapy Treatment Exercises Exercises Ankle Pumps Gluteal Sets Short Arc Quads Seated Knee Flexion/Extension Knee ROM Measurement seated marching Education Education Provided Precautions Post-Op Packet Safety Other Treatments Other Treatment Performed Completed exercises in sitting . Tolerated treatment well. M7 PT-IP Assessment and Plan Start: 02/04/18 16:09 Freq: NEEDED Status: Active Protocol: Document 02/07/18 08:58 ZENIA (Rec: 02/07/18 14:02 LJ [email or web address]) PT Summary Assessment and Plan Potential Rehabilitation Potential Good Status of Condition at Evaluation Evolving Summary Assessment Summary Poor activity tolerance and safety awareness. Continued to progress gait/balance as able . Frequency of Treatment Frequency Of Treatment Twice a Day Recommendations To Nursing Amount of Assist Needed 1 Person Assist Discharge Recommendations PT Discharge Recommendations SNF Rehab
--- NOTE | 2018-02-07 14:04 | PC.NURSE ---
INITIALLY PT VERY UPSET AND RESISTANT TO ANY AND ALL CARE GIVEN- AFTER CALMING HIM DOWN AND MEDICATED FOR PAIN- INCREASED DILTIAZEM GTT TO 20 AND ADDED AN ONE TIME DOSE OF PO 50MG METOPROLOL WHICH IS WAS VERY EFFECTIVE FOR HR AND ABLE TO WEAN DILT GTT TO OFF DURING THIS SHIFT- IN NEED OF BM- GIVEN OXYCODONE X 2 FOR C/O RIGHT SIDED RIB PAIN
--- NOTE | 2018-02-07 14:55 | P.PN_ITS ---
Subjective Date Patient Seen: 02/07/18 Time Patient Seen: 14:54 Interval history: Sitting up watching TV with his at the bedside. Patient denies any shortness of breath. Staff reports he is reaching 1200 on his incentive spirometer. He reports his pain is well controlled. Exam Vital Signs (past 8 hours): - 02/07/18 08:00 02/07/18 08:38 02/07/18 11:25 Temperature 98.8 F Pulse Rate 143 H 81 Respiratory Rate 28 H 16 Blood Pressure 121/83 104/54 L Pulse Oximetry 94 97 94 02/07/18 12:26 Temperature Pulse Rate Respiratory Rate Blood Pressure Pulse Oximetry 96 Oxygen Delivery Method Room Air Oxygen Flow Rate 0 Narrative Exam Narrative: Lungs: Decreased bilaterally but breath sounds are clear. No crackling or wheezing appreciated. No chest wall crepitance. Bruising is noted on his hands arms and chest. Objective Labs Result Diagrams: 02/07/18 05:12 02/07/18 05:12 Labs: Laboratory Results - last 24 hr 02/07/18 02/07/18 02/07/18 05:12 05:12 Unknown WBC 10.5 RBC 3.34 L Hgb 10.7 L Hct 31.8 L MCV 95.0 MCH 31.9 MCHC 33.6 RDW 14.0 Plt Count 175 Neut % (Auto) 74.8 Lymph % (Auto) 13.9 L [place] % (Auto) 9.7 Eos % (Auto) 1.1 L Baso % (Auto) 0.5 Neut # (Auto) 7800 H Sodium 137 Potassium 3.5 Chloride 99 Carbon Dioxide 27 BUN 8 L Creatinine 0.50 L Estimated GFR > 60.0 BUN/Creatinine Ratio 16.0 Glucose 132 H Calcium 8.3 L Total Creatine Kinase 174 H CK-MB (CK-2) 1.21 CK-MB (CK-2) Rel Index 0.7 L Troponin I 0.[address] [address] XRay Report Signed Patient: Oneal Benz MR#: [id number] : 1940 Acct:[id number] Age/Sex: 77 / M Date of Service: 02/06/18 Loc: 206-1 Accession Number: [id number] Procedure: XR chest 2V Ordering Provider: Bishop Durham MD PROCEDURE: XR CHEST 2V INDICATIONS: bilateral rib fractures possible effusion, pneumonia TECHNIQUE: 2 views of the chest were acquired. COMPARISON: [facility], CR, XR CHEST 1V, 12/12/2017, 12:39. FINDINGS: Surgical changes and devices: Postsurgical changes compatible prior CABG procedure Lungs and pleura: Trace left and small right pleural fluid collections. Bibasilar lung opacities right greater than left concerning for atelectasis, aspiration or pneumonia. Mediastinum: Mediastinal contours are normal. Heart size is enlarged. Bones and chest wall: No suspicious bony abnormalities. Soft tissues appear unremarkable. IMPRESSION: 1. Bibasilar lung opacities right greater than left which could represent atelectasis, aspiration or pneumonia. 2. Trace left and small right pleural fluid collections right greater than left which could represent effusions, however given history of bilateral rib fractures hemothorax cannot be excluded. 3. No pneumothorax identified. Dictated by: Karina De Luna MD, PhD on 02/06/2018 at 16:07 Approved by: Karina De Luna MD, PhD on 02/06/2018 at 16:09 Assessment & Plan Plan: Assessment/Plan Narrative: Very pleasant unfortunate gentleman status post fall with multiple rib fractures. His chest x-ray shows some small bilateral effusion but nothing requiring chest tube drainage. He is cooperating well and seems to be improving. We are happy to be available if we can be of any further assistance
--- NOTE | 2018-02-07 15:36 | PT.IPTN ---
Current Diagnoses Multiple fractures of ribs, right side, initial encounter for closed fracture (02/04/18) Physical Therapy Treatment Note M2 PT-IP Current Condition Start: 02/04/18 16:09 Freq: NEEDED Status: Active Protocol: Document 02/05/18 10:15 RCC (Rec: 02/05/18 10:31 RCC [email or web address]) Physical Therapy Current Condition Current Condition Evaluation Date 02/05/18 Treatment Diagnosis fall down stairs, impaired mobility Precautions Other Precautions R shoulder painful M3 PT-IP Subjective Start: 02/04/18 16:09 Freq: NEEDED Status: Active Protocol: Document 02/07/18 15:34 LJ (Rec: 02/07/18 15:36 LJ [id number]) Subjective Physical Therapy Visit Type Type Administrative Note Visit Start Time 14:49 Notes Per Nurse, pt was just returned to bed with CPAP. Pt sleeping soundly. M4 PT-IP Mobility and Gait Start: 02/04/18 16:09 Freq: NEEDED Status: Active Protocol:
--- NOTE | 2018-02-07 15:46 | PT.IPTN ---
Current Diagnoses Multiple fractures of ribs, right side, initial encounter for closed fracture (02/04/18) Physical Therapy Treatment Note M2 PT-IP Current Condition Start: 02/04/18 16:09 Freq: NEEDED Status: Active Protocol: Document 02/05/18 10:15 RCC (Rec: 02/05/18 10:31 RCC [email or web address]) Physical Therapy Current Condition Current Condition Evaluation Date 02/05/18 Treatment Diagnosis fall down stairs, impaired mobility Precautions Other Precautions R shoulder painful M3 PT-IP Subjective Start: 02/04/18 16:09 Freq: NEEDED Status: Active Protocol: Document 02/07/18 15:45 LJ (Rec: 02/07/18 15:46 LJ [id number]) Subjective Physical Therapy Visit Type Type Patient Unavailable Visit Start Time 15:45 Notes Pt just returned to bed. Sleeping w/CPAP. Nurse advised do not arouse M4 PT-IP Mobility and Gait Start: 02/04/18 16:09 Freq: NEEDED Status: Active Protocol: Document 02/07/18 08:58 LJ (Rec: 02/07/18 14:02 LJ [email or web address]) PT-Transfer Assessment Sit to and From Stand Sit to and from Stand Moderate Assistance 1 Person Assistance Use of Upper Extremities Equipment Transfer Assistive Device Gait Belt Front Wheeled Walker Transfers Transfer Technique Stand Step Pivot Transfer Ability Level of Assist Contact Guard Assistance Comments Mobility Comments Pt very groggy. Req's mod cues for mobility in chair for scooting and standing w/ proper use of hands and posture. Gait Assessment Gait Gait Assistance Required: Contact Guard Assist Distance (Feet) 6 Able to Maintain Weight Bearing Status Yes During Gait Assistive Devices Assistive Device Gait Belt Front Wheeled Walker Gait Deviations General Gait Pattern Antalgic Decreased Stride Length Decreased Feet Clearance Flexed Trunk Step-to Gait Factors Limiting Gait Function Factors Limiting Gait Function Decreased Activity Tolerance Decreased Strength Pain Poor Balance Comments Gait Comments Pt continues to require mod cueing for posture and sequencing of movement using FWW. M5 PT-IP Objective Assessments Start: 02/04/18 16:09 Freq: NEEDED Status: Active Protocol: Document 02/05/18 10:15 RCC (Rec: 02/05/18 10:31 RCC [email or web address]) Orientation Orientation/Cognition Level of Alertness Alert Orientation Name Age Birthday Month Date Place Situation Gross Range of Motion Upper Extremity ROM Assessment Right Impaired Impairments R shoulder flexion limited to lifting arm off of arm rest of chair, but no further. Lower Extremity ROM Assessment Within Functional Limits Strength Upper Extremity Strength Assessment Right Impaired Lower Extremity Strength Assessment Bilaterally Impaired Hip flexion R 3+/5 and L 4/5 Knee flexion and extension 4/5 B Ankle DF 4+/5 R and 5/5 L Comments Strength Comments unable to test RUE with MMT due to pain. M6 PT-IP Treatment Start: 02/04/18 16:09 Freq: NEEDED Status: Active Protocol: Document 02/06/18 14:39 SA (Rec: 02/06/18 14:50 SA [id number]) Physical Therapy Treatment Exercises Exercises Ankle Pumps Gluteal Sets Short Arc Quads Seated Knee Flexion/Extension Knee ROM Measurement seated marching Education Education Provided Precautions Post-Op Packet Safety Other Treatments Other Treatment Performed Completed exercises in sitting . Tolerated treatment well. M7 PT-IP Assessment and Plan Start: 02/04/18 16:09 Freq: NEEDED Status: Active Protocol: Document 02/07/18 08:58 [email or web address] (Rec: 02/07/18 14:02 LJ [email or web address]) PT Summary Assessment and Plan Potential Rehabilitation Potential Good Status of Condition at Evaluation Evolving Summary Assessment Summary Poor activity tolerance and safety awareness. Continued to progress gait/balance as able . Frequency of Treatment Frequency Of Treatment Twice a Day Recommendations To Nursing Amount of Assist Needed 1 Person Assist Discharge Recommendations PT Discharge Recommendations SNF Rehab
[2018-02-07] MEDS: TAMSULOSIN 0.4 MG CAPSULE PO (16:34)
--- NOTE | 2018-02-07 17:31 | PC.NURSE ---
1700- Patient assisted to standing so that he could use the urinal. Upon urination it was noted that patient was having virginie blood dripping from the penis. This is a new finding. Will monitor.
--- NOTE | 2018-02-07 20:36 | PC.NURSE ---
2006- Patient converted to normal sinus rhythm. Strip placed in chart.
[2018-02-08] VITALS (10 sets, daily range): BP systolic 138–165; BP diastolic 62–97; PULSE 69–103; RESP 13–19; TEMP 36.6–36.9; O2SAT 92–95; BMI 31.1
[2018-02-08] MEDS: OXYCODONE IR 5 MG TABLET 10 MG PO ×7 (00:18→21:15)
[2018-02-08] MEDS: AMPICILLIN/SULBACTAM 3 GM 3 GM in SODIUM CHLORIDE 0.9% 100 ML IV ×3 (05:01→21:15)
[2018-02-08 05:51] LABS: Add Manual Diff / Slide Review NO; Basophils Percent Auto 0.5 % (0-2); Eosinophils Percent Auto 2.2 % (2-4); Hematocrit 26.3 % (41-53); Lymphocytes Percent Auto 17.4 % (25-40); Mean Corpuscular HGB Conc 34.4 % (30-36); Mean Corpuscular Hemoglobin 32.5 PG (26-34); Mean Corpuscular Volume 94.7 fL (80-100); Monocytes Percent Auto 9.9 % (3-14); Neutrophils Absolute Auto 5800 /uL (3000-5900); Platelet Count 177 X10^3/uL (150-400); Red Blood Cell Count 2.78 X10^6/uL (4.5-5.9); Red Cell Distribution Width 14.3 % (11.6-14.8); White Blood Cell Count 8.3 X10^3/uL (4.5-11.0)
[2018-02-08 06:01] LABS: Alanine Aminotransferase 27 IU/L (21-72); Albumin 3.1 g/dL (3.5-5.0); Albumin Globulin Ratio 1.3 (1.0-2.8); Alkaline Phosphatase 34 U/L (38-126); Aspartate Aminotransferase 20 IU/L (17-59); Blood Urea Nitrogen 9 mg/dL (9-20); Carbon Dioxide 28 mmol/L (22-32); Chloride 102 mmol/L (98-107); Estimated Glomerular Filt Rate > 60.0 mL/min (>60); Globulin 2.4 g/dL (1.7-4.1); Glucose 109 mg/dL (80-110); HEMOLYSIS < 15 (0-50); Potassium 3.5 mmol/L (3.4-5.1); Sodium 140 mmol/L (137-145); Total Protein 5.5 g/dL (6.3-8.2)
--- NOTE | 2018-02-08 08:00 | DI.RAD.S_ITS ---
PROCEDURE: XR CHEST 1V INDICATIONS: Rib fractures TECHNIQUE: One view of the chest was acquired. COMPARISON: [facility], CR, XR CHEST 1V, 12/12/2017, 12:39. [facility], CT, CT CERVICAL SPINE WO CON, 02/03/2018, 22:12. [facility], CR, XR CHEST 2V, 02/06/2018, 16:31. FINDINGS: Surgical changes and devices: Sternotomy wires and CABG clips. Lungs and pleura: No definite pneumothorax identified however there is increased pleural density along the right ribs suggesting hemothorax or pleural effusion. There is associated right apical capping. Scattered atelectasis throughout the entire right lung. No focal left lung consolidation although there is blunting of the costophrenic angle. Mediastinum: Mediastinal contours appear normal. Heart size is normal. Numerous right rib fractures as before. IMPRESSION: Multiple right rib fractures, with possible increasing right pleural effusion and/or hemothorax. However, comparison is limited given the suboptimal previous chest radiographs. Associated diffuse right lung atelectasis. Recommend continued radiographic followup. Findings were personally telephoned to the patient's nurse on the floor (Isra) who will relay the findings to Dr. Miller, the attending physician, as soon as possible and call back if any questions. Dictated by: Isra Stauffer M.D. on 02/08/2018 at 8:27 Approved by: Isra Stauffer M.D. on 02/08/2018 at 8:36
[2018-02-08] MEDS: DOCUSATE 100 MG CAPSULE PO ×2 (08:27→21:15)
[2018-02-08] MEDS: MAGNESIUM HYDROXIDE 30 ML UDC PO ×2 (08:27→21:32)
[2018-02-08] MEDS: ATORVASTATIN 20 MG TABLET 40 MG PO (08:27)
[2018-02-08] MEDS: LISINOPRIL 5 MG TABLET PO (08:27)
[2018-02-08] MEDS: ALLOPURINOL 300 MG TABLET PO (08:28)
[2018-02-08] MEDS: METOPROLOL ER 50 MG TABLET PO ×2 (08:28→21:15)
[2018-02-08] MEDS: SODIUM CHLORIDE 0.9% FLUSH 10 ML IV ×2 (08:28→21:16)
--- NOTE | 2018-02-08 12:10 | PT.IPTN ---
Current Diagnoses Multiple fractures of ribs, right side, initial encounter for closed fracture (02/04/18) Physical Therapy Treatment Note M2 PT-IP Current Condition Start: 02/04/18 16:09 Freq: NEEDED Status: Active Protocol: Document 02/08/18 12:10 RCC (Rec: 02/08/18 12:18 RCC [id number]) Physical Therapy Current Condition Current Condition Evaluation Date 02/05/18 Treatment Diagnosis fall down stairs, impaired mobility Precautions Other Precautions R shoulder painful, fall risk, R rib fx's 1-5 M3 PT-IP Subjective Start: 02/04/18 16:09 Freq: NEEDED Status: Active Protocol: Document 02/08/18 12:10 RCC (Rec: 02/08/18 12:18 RCC [id number]) Subjective Physical Therapy Visit Type Type Treatment Note Visit Start Time 11:42 Visit Stop Time 12:10 Total Visit Minutes 28 Physical Therapy Visit Comments Patient Comments Pt willing to ambulate, would like to get back to bed afterward. M4 PT-IP Mobility and Gait Start: 02/04/18 16:09 Freq: NEEDED Status: Active Protocol: Document 02/08/18 12:10 RCC (Rec: 02/08/18 12:18 RCC [id number]) PT-Bed Mobility Assessment Sit to Supine Sit to Supine Moderate Assistance 1 Person Assistance Bedrails PT-Transfer Assessment Sit to and From Stand Sit to and from Stand Minimal Assistance 1 Person Assistance Use of Upper Extremities Equipment Transfer Assistive Device Gait Belt Front Wheeled Walker Transfers Transfer Destination Bed Transfer Technique Stand Step Pivot Transfer Ability Level of Assist Contact Guard Assistance Use of Upper Extremities Gait Assessment Gait Gait Assistance Required: Contact Guard Assist Distance (Feet) 8 Assistive Devices Assistive Device Gait Belt Front Wheeled Walker Gait Deviations General Gait Pattern Antalgic Decreased Stride Length Decreased Feet Clearance Flexed Trunk Step-to Gait Wide Based Gait Factors Limiting Gait Function Factors Limiting Gait Function Decreased Activity Tolerance Decreased Strength Pain Poor Balance Comments Gait Comments HR up to 137 bpm with gait. M5 PT-IP Objective Assessments Start: 02/04/18 16:09 Freq: NEEDED Status: Active Protocol: Document 02/05/18 10:15 RCC (Rec: 02/05/18 10:31 RCC [email or web address]) Orientation Orientation/Cognition Level of Alertness Alert Orientation Name Age Birthday Month Date Place Situation Gross Range of Motion Upper Extremity ROM Assessment Right Impaired Impairments R shoulder flexion limited to lifting arm off of arm rest of chair, but no further. Lower Extremity ROM Assessment Within Functional Limits Strength Upper Extremity Strength Assessment Right Impaired Lower Extremity Strength Assessment Bilaterally Impaired Hip flexion R 3+/5 and L 4/5 Knee flexion and extension 4/5 B Ankle DF 4+/5 R and 5/5 L Comments Strength Comments unable to test RUE with MMT due to pain. M6 PT-IP Treatment Start: 02/04/18 16:09 Freq: NEEDED Status: Active Protocol: Document 02/06/18 14:39 SA (Rec: 02/06/18 14:50 SA [id number]) Physical Therapy Treatment Exercises Exercises Ankle Pumps Gluteal Sets Short Arc Quads Seated Knee Flexion/Extension Knee ROM Measurement seated marching Education Education Provided Precautions Post-Op Packet Safety Other Treatments Other Treatment Performed Completed exercises in sitting . Tolerated treatment well. M7 PT-IP Assessment and Plan Start: 02/04/18 16:09 Freq: NEEDED Status: Active Protocol: Document 02/08/18 12:10 RCC (Rec: 02/08/18 12:18 RCC [id number]) PT Summary Assessment and Plan Summary Assessment Summary Pt continues to require manual assistance for transfers and mobility. He has mild improvements in his RUE ROM but still limited with WB on the R side due to pain. Pt is significantly below his prior level of function, and the burden of care is too high for the pt to d/c home. Goals Bed Mobility Goal Contact Guard Assistance Transfer Goal Standby Assistance Gait Goal Standby Assistance Gait Distance 150 Other Goals up/down 2 steps with R ascending rail and CGA Days to Meet Goals 3 Frequency of Treatment Frequency Of Treatment Twice a Day Recommendations To Nursing Amount of Assist Needed 1 Person Assist Discharge Recommendations PT Discharge Recommendations SNF Rehab
--- NOTE | 2018-02-08 13:06 | PM.PN.1 ---
Subjective Date Patient Seen: 02/08/18 Time Patient Seen: 12:00 Interval history: Patient chief complaint fall with broken ribs. Continues to be quite weak and in a great deal of pain. Subjective the patient continues to her wrist with a great deal of pain had a chest x-ray earlier which raised the question of an hemo thorax. Patient has dropped his blood count has met a crit down by fiber 6 points. Vital signs are stable and patient is pending time out of atrial fibrillation. On metoprolol at this point with fair rate control and not having sustained hypotension shows no chest pain no shortness of breath other than that related to pain. Cardiac enzymes negative. Chest x-ray is pending for this afternoon to get a comparison view make sure that things not increasing in terms of suggested a hemo thorax. If that is the case need to get a consult with surgery for possibility of a chest tube. Have serial labs ordered for morning as well. Past medical history patient the consists of 1. Hypertension 2. AFib 3. Reflux 4. Hyperlipidemia 5. Gout Past as an social history patient has good supportive spouse spending time here concerned about his head fib and anticoagulation risks of stroke risks and quite quickly and engaged with him here he is probably going to need to think about alf and they are having a difficult time finding a place that would fit. Concern today of bed about letting him go in the next day or 2 because of dropping hematocrit. Exam Vital Signs (past 8 hours): - 02/08/18 08:00 02/08/18 12:00 Temperature 98 F 98.3 F Pulse Rate 95 H 103 H Respiratory Rate 15 15 Blood Pressure 154/84 H 142/63 H Pulse Oximetry 94 92 Oxygen Delivery Method Room Air,CPAP Oxygen Flow Rate 0 Narrative Exam Narrative: Patient asleep sitting but communicating clearly. Quite uncomfortable secondary to his rib fractures. PERRLA Lungs with decreased breath sounds throughout and some rhonchi and probable like noises. Cardiac shows a surely regular rate and rhythm with an occasional extra beat. No murmur Abdomen is nontender no hepatosplenomegaly or masses Lower extremities with significant edema Neuro intact and symmetrical to sensory and motor. Speech clear Objective Labs Result Diagrams: 02/08/18 05:23 02/08/18 05:23 Labs: Laboratory Results - last 24 hr 02/08/18 02/08/18 05:23 05:23 WBC 8.3 RBC 2.78 L Hgb 9.0 L Hct 26.3 L MCV 94.7 MCH 32.5 MCHC 34.4 RDW 14.3 Plt Count 177 Neut % (Auto) 70.0 Lymph % (Auto) 17.4 L [place] % (Auto) 9.9 Eos % (Auto) 2.2 Baso % (Auto) 0.5 Neut # (Auto) 5800 Sodium 140 Potassium 3.5 Chloride 102 Carbon Dioxide 28 BUN 9 Creatinine 0.60 L Estimated GFR > 60.0 BUN/Creatinine Ratio 15.0 Glucose 109 Calcium 8.0 L Total Bilirubin 1.0 AST 20 ALT 27 Alkaline Phosphatase 34 L B-Natriuretic Peptide 119.0 H Total Protein 5.5 L Albumin 3.1 L Globulin 2.4 Albumin/Globulin Ratio 1.3 Assessment & Plan Plan: Assessment/Plan Narrative: Assessment 1. Fall with multiple broken ribs right and left side in the 1234 and 1 to rib ranges. May be accumulating him hemo thorax bilaterally will monitor blood counts and follow up chest x-ray. He may also have been alcohol involved in this fall. Patient shows no real signs of requiring sedation for withdrawal or CIWA protocol interventions Assessment 2. Atrial fibrillation patient has had intermittent trouble with this since prior fall earlier this year. Currently is for the most part in sinus rhythm but with movement and agitation number pain has some extra beats or irregularities. Negative cardiac enzymes and has overall good rate control at this point with good blood pressure. Assessment 3. Hypertension blood pressure is in good control at this point will continue with the current medication that should consists of lisinopril and metoprolol. Metoprolol also helping with rate control for his fib. Will give extra individual bursa that if needed for fib Assessment 4. Anemia. Patient has dropped his hematocrit by 5 points. Concern is that that could be going into his thorax. Vital signs are stable he is not having increasing difficulty breathing so it may not be an issue may just be equal abrading after blood loss secondary to his rib fractures. Plan to relook at an x-ray to make sure is not accumulating more so later today. Serial labs for morning. Assessment 5. Head laceration stable at this point continue to observe Assessment 6. Patient with anticoagulation because of atrial fibrillation holding at this point because of the potential hemothorax. If patient gets less well oxygenated or seems to be dropping pressure at all or dropping hematocrit or worsening chest x-ray will get surgical consult at that point.
--- NOTE | 2018-02-08 14:00 | DI.RAD.S_ITS ---
PROCEDURE: XR CHEST 2V INDICATIONS: f/u possible hemothorax TECHNIQUE: 2 views of the chest were acquired. COMPARISON: [facility], , XR CHEST 1V, 02/08/2018, 5:40. FINDINGS: Surgical changes and devices: None. Lungs and pleura: No pneumothorax identified. There is presumed right hemo-effusion related to multiple right rib fractures. This is stable to slightly increased in size since earlier same day. There is decreased right lung volume. No definite left lung consolidation is seen although there is scattered atelectasis. Mediastinum: Mediastinal contours are normal. Heart size is normal. Multiple right rib fractures as before. IMPRESSION: Presumed right hemothorax related to multiple right rib fractures, which is stable to slightly increased in size since earlier same day. Associated decrease right lung volume. Recommend continued radiographic surveillance and clinical correlation. Dictated by: Isra Stauffer M.D. on 02/08/2018 at 17:57 Approved by: Isra Stauffer M.D. on 02/08/2018 at 17:59
[2018-02-08 14:22] LABS: Bacteria Urine None Seen
[2018-02-08 14:23] LABS: Appearance Urine UA CLEAR; Bilirubin Urine UA NEGATIVE (NEGATIVE); Color Urine UA YELLOW; Glucose Urine UA NEGATIVE (Normal); Ketones Urine UA NEGATIVE (NEGATIVE); Leukocyte Esterase Urine UA NEGATIVE (NEGATIVE); Nitrite Urine UA NEGATIVE (Negative); Occult Blood Urine UA 3+ (Negative); Protein Urine UA NEGATIVE (Negative); Specific Gravity Urine UA <=1.005 (1.000-1.035); pH Urine UA 6.5 (4.5-8.0)
[2018-02-08] MEDS: BISACODYL 10 MG SUPP PR (14:36)
[2018-02-08 14:40] LABS: RBC Urine 5-10/HPF (0-5/HPF); Squamous Epithelial Cell Urine 0-1 /HPF; WBC Urine 1-5/HPF (0-5/HPF)
[2018-02-08 14:53] LABS: Hematocrit 30.4 % (41-53); Hemoglobin 10.4 g/dL (13.5-17.5)
--- NOTE | 2018-02-08 15:27 | PT.IPTN ---
Current Diagnoses Multiple fractures of ribs, right side, initial encounter for closed fracture (02/04/18) Physical Therapy Treatment Note M2 PT-IP Current Condition Start: 02/04/18 16:09 Freq: NEEDED Status: Active Protocol: Document 02/08/18 15:27 RCC (Rec: 02/08/18 15:36 [facility] [id number]) Physical Therapy Current Condition Current Condition Evaluation Date 02/05/18 Treatment Diagnosis fall down stairs, impaired mobility Precautions Other Precautions R shoulder painful, fall risk, R rib fx's 1-5 M3 PT-IP Subjective Start: 02/04/18 16:09 Freq: NEEDED Status: Active Protocol: Document 02/08/18 15:27 RCC (Rec: 02/08/18 15:36 [facility] [id number]) Subjective Physical Therapy Visit Type Type Treatment Note Visit Start Time 15:03 Visit Stop Time 15:27 Total Visit Minutes 24 Physical Therapy Visit Comments Patient Comments Pt willing to attempt to get to C, he may have to have a BM. M4 PT-IP Mobility and Gait Start: 02/04/18 16:09 Freq: NEEDED Status: Active Protocol: Document 02/08/18 15:27 RCC (Rec: 02/08/18 15:36 [facility] [id number]) PT-Bed Mobility Assessment Supine to Sit Supine to Sit Moderate Assistance 2 Person Assistance Head of Bed Elevated Bedrails PT-Transfer Assessment Sit to and From Stand Sit to and from Stand Minimal Assistance Use of Upper Extremities Equipment Transfer Assistive Device Gait Belt Front Wheeled Walker Transfers Transfer Destination Chair Bedside Commode Transfer Ability Level of Assist Contact Guard Assistance Use of Upper Extremities Comments Mobility Comments Transfer steps to the R to the BSC, then short gait and transfer steps CW to the chair . No BM. Gait Assessment Gait Gait Assistance Required: Contact Guard Assist Distance (Feet) 3 Assistive Devices Assistive Device Gait Belt Front Wheeled Walker Gait Deviations General Gait Pattern Antalgic Decreased Stride Length Decreased Feet Clearance Flexed Trunk Step-to Gait Wide Based Gait Factors Limiting Gait Function Factors Limiting Gait Function Decreased Activity Tolerance Decreased Strength Pain Poor Balance M5 PT-IP Objective Assessments Start: 02/04/18 16:09 Freq: NEEDED Status: Active Protocol: Document 02/05/18 10:15 RCC (Rec: 02/05/18 10:31 [facility] [id number]) Orientation Orientation/Cognition Level of Alertness Alert Orientation Name Age Birthday Month Date Place Situation Gross Range of Motion Upper Extremity ROM Assessment Right Impaired Impairments R shoulder flexion limited to lifting arm off of arm rest of chair, but no further. Lower Extremity ROM Assessment Within Functional Limits Strength Upper Extremity Strength Assessment Right Impaired Lower Extremity Strength Assessment Bilaterally Impaired Hip flexion R 3+/5 and L 4/5 Knee flexion and extension 4/5 B Ankle DF 4+/5 R and 5/5 L Comments Strength Comments unable to test RUE with MMT due to pain. M6 PT-IP Treatment Start: 02/04/18 16:09 Freq: NEEDED Status: Active Protocol: Document 02/06/18 14:39 SA (Rec: 02/06/18 14:50 SA [id number]) Physical Therapy Treatment Exercises Exercises Ankle Pumps Gluteal Sets Short Arc Quads Seated Knee Flexion/Extension Knee ROM Measurement seated marching Education Education Provided Precautions Post-Op Packet Safety Other Treatments Other Treatment Performed Completed exercises in sitting . Tolerated treatment well. M7 PT-IP Assessment and Plan Start: 02/04/18 16:09 Freq: NEEDED Status: Active Protocol: Document 02/08/18 15:27 RCC (Rec: 02/08/18 15:36 [facility] [id number]) PT Summary Assessment and Plan Summary Assessment Summary Pt very limited with RUE mobility but able to tolerate using RUE in WB on FWW. He demonstrated improved eccentric control with stand to sit to chair, requiring only Min A. Pt is still not able to ambulate safe household distances, and will require SNF rehabilitation upon d/c. Goals Bed Mobility Goal Contact Guard Assistance Transfer Goal Standby Assistance Gait Goal Standby Assistance Gait Distance 150 Other Goals up/down 2 steps with R ascending rail and CGA Days to Meet Goals 3 Frequency of Treatment Frequency Of Treatment Twice a Day Treatment Plan Other Recommendations and Next Treatment prog. gait as tolerated. Focus Recommend 2 assist for bed mobility Recommendations To Nursing Amount of Assist Needed 2 Person Assist Discharge Recommendations PT Discharge Recommendations SNF Rehab
--- NOTE | 2018-02-08 15:52 | OT.IP.TRT ---
Current Diagnoses Multiple fractures of ribs, right side, initial encounter for closed fracture (02/04/18) Occupational Therapy Treatment Note M2 OT-IP Current Condition Start: 02/04/18 14:08 Freq: Status: Active Protocol: Document 02/05/18 11:23 PJM (Rec: 02/05/18 13:21 PJM [id number]) Occupational Therapy Current Condition Current Condition Evaluation Date 02/05/18 Treatment Diagnosis decreased self care, all mobility s/p fall down stairs w/LOC,mult R rib fx Post Operative Precautions Other Precautions R shoulder painful, fall risk, R rib fx's 1-5 M3 OT- IP Subjective and Pain Start: 02/04/18 14:08 Freq: Status: Active Protocol: Document 02/08/18 15:45 CCC (Rec: 02/08/18 15:52 [facility] [id number]) OT- Subjective Occupational Therapy Visit Type Type Treatment Note Visit Start Time 15:05 Visit Stop Time 15:40 Total Visit Minutes 35 Occupational Therapy Visit Comments Patient Comments Pt feeling that he needs to use the toilet. OT Pain Assessment Pain When Pain Assessed At Rest Pain Present Pain Present Pain Reported M4 OT- IP ADL's Start: 02/04/18 14:08 Freq: Status: Active Protocol: Document 02/08/18 15:45 CCC (Rec: 02/08/18 15:52 [facility] [id number]) OT ADL-Grooming General Evaluation Grooming Ability Standby Assistance Areas Needing Assistance Retrieving/Set-up of Grooming Items Comments OT Grooming Comments Pt not up to standing at sink to do grooming needs, with encouragement able to use bilateral hands to assist for set-up and brush his teeth and shave. OT ADL-Oral Care General Eval Oral Care Ability Independent M5 OT- IP IADL's Start: 02/04/18 14:08 Freq: Status: Active Protocol: Document 02/05/18 11:23 PJM (Rec: 02/05/18 13:21 PJM [id number]) OT-Instrumental Activities of Daily Living Deficits IADL Deficits Identified No Deficits Home Safety Awareness Awareness of Need for Assistance at Home Decreased Awareness Medication Management Medication Management Comments not here to confirm home situation Money Management Money Management Comments not here to confirm home situation Meal Preparation Meal Preparation Comments not here to confirm home situation Jet Operator Jet Operator Comments not here to confirm home situation Driving Driving Comments Pt states he and both drive. M6 OT- IP Functional Cognition Start: 02/04/18 14:08 Freq: Status: Active Protocol: Document 02/08/18 15:45 [facility] (Rec: 02/08/18 15:52 [facility] [id number]) Cognitive Factors Limiting Selfcare Function Cognitive Ability Level of Alertness Alert Attention Span Ability Capable of Focused Attention Capable of Sustained Attention Ability to Follow Commands Able to Follow One Step Commands Safety Awareness Underestimates Need for Assistance Cognitive Comments Cognitive Assessment Comments Pt needing step by step commands for FWW safety. M7 OT- IP Mobility and Balance Start: 02/04/18 14:08 Freq: Status: Active Protocol: Document 02/08/18 15:45 [facility] (Rec: 02/08/18 15:52 [facility] [id number]) OT- Bed Mobility Assessment Rolling Type of Rolling Roll to Left Supine to Sit Supine to Sit Assist Moderate Assistance 2 Person Assistance Scooting Scooting to Edge of Bed Standby Assistance OT-Transfer Assessment Sit to and From Stand Sit to and from Stand Minimal Assistance 1 Person Assistance Transfers Transfer Ability Contact Guard Assistance 1 Person Assistance Technique Transfer Destination Bedside Commode Chair Transfer Technique Stand Step Pivot Devices Transfer Assistive Devices Gait Belt Front Wheeled Walker Comments Mobility Comments Pt moving much better today however still limited by activity tolerance. M8 OT- IP Objective Assessments Start: 02/04/18 14:08 Freq: Status: Active Protocol: Document 02/05/18 11:23 PJM (Rec: 02/05/18 13:21 PJM [id number]) OT Gross Range of Motion Upper Extremity Range of Motion Assessment Right Impaired ROM Impairments RUE: AAROM: pt tolerates shoulder flex to 70 then limited by pain. Pt declines abdunction due to pain. Distal AROM WFL OT Strength Upper Extremity Strength Assessment Right Impaired Shoulder 3-/5 Elbow at least 3/5 Wrist at least 3/5 Hand 3+/5 hazard mitigation officer Hand Clinical Athletic Instructor Strength Hand Dominance Right OT- Coordination Assessment Upper Extremity Finger to Nose Test Right UE Impaired Comments Coordination Comments RUE functional use limited by proximal pain OT-Muscle Tone Assessment Muscle Tone WNL Yes OT Sensation Assessment Comments Summary Comments Pt detects light touch in B hands and denies deficits. Edema Edema Present Edema Comments Mod edema dorsum of R hand. Pt educated re: elevation and fist pumping. M9 OT- IP Assessment and Plan Start: 02/04/18 14:08 Freq: Status: Active Protocol: Document 02/08/18 15:45 [facility] (Rec: 02/08/18 15:52 [facility] [id number]) OT Summary Assessment and Plan Summary OT Impairments Pain Range of Motion Strength Balance Coordination Functional Cognition Functional Mobility Self-Feeding Grooming Dressing Toileting Bathing Toilet Transfers Shower Transfers Progress Towards Goals Slow Progress due to Pain Slow Progress due to Medical Issues Slow Progress due to Activity Tolerance Assessment Summary Still recommending skilled rehab due to decreased activity tolerance, strength, balance, and endurance. Goals Self-Feeding Goal Independent Grooming Goal Standby Assistance Dressing Goal Moderate Assistance Toileting Goal Moderate Assistance Bathing Goal Moderate Assistance Toilet Transfer Goal Standby Assistance Shower Transfer Goal Minimal Assistance Days to Meet Goals 5 Frequency of Treatment Frequency Of Treatment Once a Day Treatment Plan OT Treatment Plan ADL Training Functional Cognition Training Functional Mobility Patient/Family Education Discharge Planning Discharge Recommendations OT Discharge Recommendations SNF Rehab
--- NOTE | 2018-02-08 17:22 | PC.NURSE ---
Addendum entered by Migdalia Marvin R.N. 02/08/18 18:43: 1840 - Dr. Miller notified of results for repeat chest x-ray. Continue to monitor. Order obtained to repeat chest x-ray in a.m. Original Note: Dr. Miller called in to review test results. Notified of current H&H. Chest x-ray results still pending. Pt denies feeling SOB. 93% on RA. Using I.S. No new orders.
[2018-02-08] MEDS: TAMSULOSIN 0.4 MG CAPSULE PO (17:52)
[2018-02-09] VITALS (8 sets, daily range): BP systolic 128–172; BP diastolic 71–79; PULSE 76–97; RESP 12–19; TEMP 36.5–36.9; O2SAT 94–98
[2018-02-09] MEDS: OXYCODONE IR 5 MG TABLET 10 MG PO ×5 (00:22→22:32)
[2018-02-09] MEDS: AMPICILLIN/SULBACTAM 3 GM 3 GM in SODIUM CHLORIDE 0.9% 100 ML IV ×3 (05:03→20:57)
[2018-02-09] MEDS: PANTOPRAZOLE 20 MG TABLET PO (06:09)
[2018-02-09 07:24] LABS: INR 1.4 (0.9-1.3)
[2018-02-09 07:27] LABS: Add Manual Diff / Slide Review NO; Basophils Percent Auto 0.8 % (0-2); Eosinophils Percent Auto 2.5 % (2-4); Hematocrit 28.2 % (41-53); Hemoglobin 9.7 g/dL (13.5-17.5); Lymphocytes Percent Auto 21.4 % (25-40); Mean Corpuscular HGB Conc 34.3 % (30-36); Mean Corpuscular Hemoglobin 32.3 PG (26-34); Mean Corpuscular Volume 94.3 fL (80-100); Monocytes Percent Auto 10.1 % (3-14); Neutrophils Absolute Auto 5100 /uL (3000-5900); Neutrophils Percent Auto 65.2 % (50-75); Platelet Count 205 X10^3/uL (150-400); Red Blood Cell Count 2.99 X10^6/uL (4.5-5.9); White Blood Cell Count 7.8 X10^3/uL (4.5-11.0)
[2018-02-09 07:28] LABS: Alanine Aminotransferase 31 IU/L (21-72); Albumin 3.3 g/dL (3.5-5.0); Albumin Globulin Ratio 1.4 (1.0-2.8); Alkaline Phosphatase 37 U/L (38-126); Aspartate Aminotransferase 22 IU/L (17-59); Bilirubin Total 1.1 mg/dL (0.2-1.3); Blood Urea Nitrogen 10 mg/dL (9-20); Calcium 8.2 mg/dL (8.4-10.2); Carbon Dioxide 31 mmol/L (22-32); Chloride 101 mmol/L (98-107); Estimated Glomerular Filt Rate > 60.0 mL/min (>60); Globulin 2.4 g/dL (1.7-4.1); Glucose 111 mg/dL (80-110); HEMOLYSIS < 15 (0-50); Potassium 3.8 mmol/L (3.4-5.1); Sodium 140 mmol/L (137-145); Total Protein 5.7 g/dL (6.3-8.2)
--- NOTE | 2018-02-09 08:00 | DI.RAD.S_ITS ---
PROCEDURE: XR CHEST 2V INDICATIONS: Monitor possible hemothorax TECHNIQUE: 2 views of the chest were acquired. COMPARISON: [facility], CR, XR CHEST 2V, 02/08/2018, 13:29. FINDINGS: Surgical changes and devices: Sternotomy wires are again seen. Lungs and pleura: Persistent presumed right hemothorax is unchanged in size and appearance. Trace left pleural effusion is also seen. Elevation of right hemidiaphragm is again noted. No gross pneumothorax. Mediastinum: Mediastinal contours are normal. Heart size is normal. Bones and chest wall: Multiple right-sided rib fractures are again seen. Soft tissues appear unremarkable. IMPRESSION: Stable appearing right hemothorax. Trace left pleural effusion. No gross pneumothorax. Multiple right rib fractures. Dictated by: Roly Dick M.D. on 02/09/2018 at 9:16 Approved by: Roly Dick M.D. on 02/09/2018 at 9:17
[2018-02-09] MEDS: LISINOPRIL 5 MG TABLET PO (08:08)
[2018-02-09] MEDS: ALLOPURINOL 300 MG TABLET PO (08:08)
[2018-02-09] MEDS: MAGNESIUM HYDROXIDE 30 ML UDC PO (08:09)
[2018-02-09] MEDS: DOCUSATE 100 MG CAPSULE PO (08:09)
[2018-02-09] MEDS: METOPROLOL ER 50 MG TABLET PO ×2 (08:09→21:01)
[2018-02-09] MEDS: ATORVASTATIN 20 MG TABLET 40 MG PO (08:09)
[2018-02-09] MEDS: ACETAMINOPHEN 325 MG TABLET 650 MG PO (08:10)
[2018-02-09] MEDS: SODIUM CHLORIDE 0.9% FLUSH 10 ML IV ×2 (08:10→21:00)
--- NOTE | 2018-02-09 10:01 | PC.NURSE ---
Pt ambulated from room to shower room with fww, gait belt, and CGA. Gait is slow but steady. SOLDER SPRAYER assisted pt with hygiene care. Used w/c to go back to room.
--- NOTE | 2018-02-09 11:10 | PM.PN.1 ---
Subjective Date Patient Seen: 02/09/18 Time Patient Seen: 10:40 Interval history: Chief complaint. Patient is hospitalized following fall with multiple fractured ribs on the right and left side with aggravation of AFib and significant respiratory compromise Course since admission patient today is a little bit less uncomfortable. Has normalized his atrial fibrillation and most of the time is in a sinus rhythm. Less shortness of breath I think as he is getting a little less pain from the fractured ribs. Patient has dropped his hematocrit down to 28 today initially had dropped to 26 yesterday but then came back up to 30. Concern is that he could be bleeding into his chest cavity developing a pneumothorax. A chest x-ray this morning does not look worse than the 1 yesterday afternoon. Patient's vital signs continued to be stable today as well with good oxygenation good blood pressure good heart rate control. Patient continues to have edema in his upper arms especially in the hands I think that is gravitational effect from having the broken ribs and that fluid from the injury radiating down the arms. Concerned that this fall that brought him in may have been contributed to by alcohol. Dr. Arce will be addressing that cry chronic basis with patient Atrial fibrillation seems much better control and will continue with his current metoprolol at this point. The patient is not a good candidate right at this point for anticoagulation with respect to his fibrillation and again he seems to be not in fibrillation most of the time at any rate Past medical history reviewed and as pertains to above reflux alcohol falls recent AFib hypertension all stable at this time No smoking history Social history is very supportive and where his issues and will educated about them. She has advocating for him for a wellness been here on a daily basis and very supportive Exam Vital Signs (past 8 hours): - 02/09/18 03:47 02/09/18 07:00 02/09/18 08:10 Temperature 98.0 F 98.1 F Pulse Rate 76 82 Respiratory Rate 12 Blood Pressure 152/79 H 128/77 Pulse Oximetry 96 95 94 Oxygen Delivery Method Room Air Oxygen Flow Rate 0 Narrative Exam Narrative: Patient sitting in bed a little more comfortable today again has a high burden of pain from multiple fractured ribs bilaterally. Answering clearly thinking appropriately PERRLA EOMs intact Neck without mass or adenopathy Lungs: More clear today than they have been is a little decrease in the bases but not severe. Cardiovascular shows a fairly regular rate rhythm no murmur S3 noted does have edema in hands which again I think is mechanical from his very high rib fractures bilaterally. GI is nontender no mass or hepatosplenomegaly. Skin shows bruising and the appropriate areas as described. Neuro shows patient to be alert sensory is grossly intact and symmetrical motor diminished by discomfort with any movement. Psych patient is discouraged about all this but the bearing up fairly well Objective Labs Result Diagrams: 02/09/18 07:10 02/09/18 07:10 Labs: Laboratory Results - last 24 hr 02/08/18 02/08/18 02/09/18 14:15 14:40 07:10 WBC 7.8 RBC 2.99 L Hgb 10.4 L 9.7 L Hct 30.4 L 28.2 L MCV 94.3 MCH 32.3 MCHC 34.3 RDW 14.0 Plt Count 205 Neut % (Auto) 65.2 Lymph % (Auto) 21.4 L [place] % (Auto) 10.1 Eos % (Auto) 2.5 Baso % (Auto) 0.8 Neut # (Auto) 5100 PT INR Sodium Potassium Chloride Carbon Dioxide BUN Creatinine Estimated GFR BUN/Creatinine Ratio Glucose Calcium Total Bilirubin AST ALT Alkaline Phosphatase Total Protein Albumin Globulin Albumin/Globulin Ratio Urine Color Yellow Urine Appearance Clear Urine pH 6.5 Ur Specific Cumming <=1.005 Urine Protein Negative Urine Glucose (UA) Negative Urine Ketones Negative Urine Occult Blood 3+ H Urine Nitrate Negative Urine Bilirubin Negative Urine Urobilinogen 2.0 H Ur Leukocyte Esterase Negative Urine RBC 5-10/hpf H Urine WBC 1-5/hpf Ur Squamous Epith Cells 0-1 /hpf Urine Bacteria None seen Ur Culture Indicated? Not Reportable Micro UA Comment Not Reportable 02/09/18 02/09/18 07:10 07:10 WBC RBC Hgb Hct MCV MCH MCHC RDW Plt Count Neut % (Auto) Lymph % (Auto) [place] % (Auto) Eos % (Auto) Baso % (Auto) Neut # (Auto) PT 15.0 H D INR 1.4 H Sodium 140 Potassium 3.8 Chloride 101 Carbon Dioxide 31 BUN 10 Creatinine 0.50 L Estimated GFR > 60.0 BUN/Creatinine Ratio 20.0 Glucose 111 H Calcium 8.2 L Total Bilirubin 1.1 AST 22 ALT 31 Alkaline Phosphatase 37 L Total Protein 5.7 L Albumin 3.3 L Globulin 2.4 Albumin/Globulin Ratio 1.4 Urine Color Urine Appearance Urine pH Ur Specific [place] Urine Protein Urine Glucose (UA) Urine Ketones Urine Occult Blood Urine Nitrate Urine Bilirubin Urine Urobilinogen Ur Leukocyte Esterase Urine RBC Urine WBC Ur Squamous Epith Cells Urine Bacteria Ur Culture Indicated? Micro UA Comment Assessment & Plan Plan: Assessment/Plan Narrative: Assessment 1. Fall with multiple fractured ribs. I think this was a significant fall probably with some loss of consciousness fell down 9 steps bouncing down the steps broke 4 ribs on the right to ribs on the left and get laceration to his head which CC seemed to be little unresponsive initially right at the 1st but came around fairly quickly. I think this traumatic event also triggered recurrence of his atrial fibrillation and had some difficulty with rate control did require diltiazem drip. He is now in good control just with oral meds. Pain med seemed to be holding patient fairly well at this point with respect to his ribs. Physical therapy is working with him as well is going to need extended therapy and reviewed that again today about senior living. He has hesitations and reservations about going someplace without a window or not is a single room. Will see how that status looks tomorrow. Assessment 2 AFib patient's heart rate is in good control in his sinus most of the time at this point just on his metoprolol. Will continue that current regimen Assessment 3. Hypertension patient blood pressure in good control on maintaining good good levels does not seem to be dropping significantly as he is developing anemia. Assessment 4. Possible alcohol history. Has had a couple of significant falls with bleeding to a hospitalizations last few months and seems to have had some alcohol involved in both of those. Skin and possibly need long-term addressing of that issue. Assessment 5. Anemia think this is secondary to rib fracture related blood loss. Some concern that might be leading to hemo thorax. Patient seems pretty stable today x-ray looks good for least not worsened than yesterday's and hematocrit will continue to monitor.
--- NOTE | 2018-02-09 11:50 | PT.IPTN ---
Current Diagnoses Multiple fractures of ribs, right side, initial encounter for closed fracture (02/04/18) Physical Therapy Treatment Note M2 PT-IP Current Condition Start: 02/04/18 16:09 Freq: NEEDED Status: Active Protocol: Document 02/09/18 11:50 RCC (Rec: 02/09/18 13:12 RCC [id number]) Physical Therapy Current Condition Current Condition Evaluation Date 02/05/18 Treatment Diagnosis fall down stairs, impaired mobility Precautions Other Precautions R shoulder painful, fall risk, R rib fx's 1-5 M3 PT-IP Subjective Start: 02/04/18 16:09 Freq: NEEDED Status: Active Protocol: Document 02/09/18 11:50 RCC (Rec: 02/09/18 13:12 RCC [id number]) Subjective Physical Therapy Visit Type Type Treatment Note Visit Start Time 11:39 Visit Stop Time 11:50 Total Visit Minutes 11 Physical Therapy Visit Comments Patient Comments Pt states he walked a little more today than yesterday with nursing. M4 PT-IP Mobility and Gait Start: 02/04/18 16:09 Freq: NEEDED Status: Active Protocol: Document 02/09/18 11:50 RCC (Rec: 02/09/18 13:12 [facility] [id number]) PT-Bed Mobility Assessment Supine to Sit Supine to Sit Moderate Assistance 1 Person Assistance Head of Bed Elevated PT-Transfer Assessment Sit to and From Stand Sit to and from Stand Contact Guard Assistance 1 Person Assistance Use of Upper Extremities Equipment Transfer Assistive Device Gait Belt Front Wheeled Walker Transfers Transfer Destination Bedside Commode Transfer Ability Level of Assist Contact Guard Assistance Use of Upper Extremities Gait Assessment Gait Gait Assistance Required: Contact Guard Assist Distance (Feet) 10 Assistive Devices Assistive Device Gait Belt Front Wheeled Walker Gait Deviations General Gait Pattern Antalgic Decreased Stride Length Decreased Feet Clearance Flexed Trunk Step-to Gait Wide Based Gait Factors Limiting Gait Function Factors Limiting Gait Function Decreased Activity Tolerance Decreased Strength Pain Poor Balance M5 PT-IP Objective Assessments Start: 02/04/18 16:09 Freq: NEEDED Status: Active Protocol: Document 02/05/18 10:15 RCC (Rec: 02/05/18 10:31 RCC [id number]) Orientation Orientation/Cognition Level of Alertness Alert Orientation Name Age Birthday Month Date Place Situation Gross Range of Motion Upper Extremity ROM Assessment Right Impaired Impairments R shoulder flexion limited to lifting arm off of arm rest of chair, but no further. Lower Extremity ROM Assessment Within Functional Limits Strength Upper Extremity Strength Assessment Right Impaired Lower Extremity Strength Assessment Bilaterally Impaired Hip flexion R 3+/5 and L 4/5 Knee flexion and extension 4/5 B Ankle DF 4+/5 R and 5/5 L Comments Strength Comments unable to test RUE with MMT due to pain. M6 PT-IP Treatment Start: 02/04/18 16:09 Freq: NEEDED Status: Active Protocol: Document 02/06/18 14:39 SA (Rec: 02/06/18 14:50 SA [id number]) Physical Therapy Treatment Exercises Exercises Ankle Pumps Gluteal Sets Short Arc Quads Seated Knee Flexion/Extension Knee ROM Measurement seated marching Education Education Provided Precautions Post-Op Packet Safety Other Treatments Other Treatment Performed Completed exercises in sitting . Tolerated treatment well. M7 PT-IP Assessment and Plan Start: 02/04/18 16:09 Freq: NEEDED Status: Active Protocol: Document 02/09/18 11:50 RCC (Rec: 02/09/18 13:12 RCC [id number]) PT Summary Assessment and Plan Summary Assessment Summary Pt with improved gait speed and distance today, and appears to be using his RUE more functionally today compared to yesterday. Pt wanted to sit on BSC for an extended period of time for a BM, left on BSC with all needs in reach and [employer] aware. Pt still is not ambulating safe household distances and requires physical assistance to get OOB. Goals Bed Mobility Goal Contact Guard Assistance Transfer Goal Standby Assistance Gait Goal Standby Assistance Gait Distance 150 Other Goals up/down 2 steps with R ascending rail and CGA Days to Meet Goals 3 Frequency of Treatment Frequency Of Treatment Twice a Day Treatment Plan Other Recommendations and Next Treatment prog. gait distance, bed Focus mobility Recommendations To Nursing Amount of Assist Needed 1 Person Assist Discharge Recommendations PT Discharge Recommendations SNF Rehab
[2018-02-09] MEDS: MAGNESIUM CITRATE 300 ML SOLUTION 150 ML PO (12:18)
--- NOTE | 2018-02-09 14:43 | PT.IPTN ---
Current Diagnoses Multiple fractures of ribs, right side, initial encounter for closed fracture (02/04/18) Physical Therapy Treatment Note M2 PT-IP Current Condition Start: 02/04/18 16:09 Freq: NEEDED Status: Active Protocol: Document 02/09/18 11:50 RCC (Rec: 02/09/18 13:12 RCC [id number]) Physical Therapy Current Condition Current Condition Evaluation Date 02/05/18 Treatment Diagnosis fall down stairs, impaired mobility Precautions Other Precautions R shoulder painful, fall risk, R rib fx's 1-5 M3 PT-IP Subjective Start: 02/04/18 16:09 Freq: NEEDED Status: Active Protocol: Document 02/09/18 14:04 LJ (Rec: 02/09/18 14:43 LJ [id number]) Subjective Physical Therapy Visit Type Type Treatment Note Visit Start Time 14:04 Visit Stop Time 14:30 Total Visit Minutes 26 Notes Family in room with pt. Physical Therapy Visit Comments Patient Comments I need to pee and I want to shave and brush my teeth. M4 PT-IP Mobility and Gait Start: 02/04/18 16:09 Freq: NEEDED Status: Active Protocol: Document 02/09/18 14:04 LJ (Rec: 02/09/18 14:43 LJ [id number]) PT-Transfer Assessment Sit to and From Stand Sit to and from Stand Contact Guard Assistance 1 Person Assistance Use of Upper Extremities Equipment Transfer Assistive Device Gait Belt Front Wheeled Walker Transfers Transfer Destination Bedside Commode Transfer Ability Level of Assist Contact Guard Assistance Use of Upper Extremities Comments Mobility Comments Several steps toward the bathroom then decided he could not wait and asked for the urinal. Ambulated to sink and used urinal there. Gait Assessment Gait Gait Assistance Required: Contact Guard Assist Distance (Feet) 15 Assistive Devices Assistive Device Gait Belt Front Wheeled Walker Gait Deviations General Gait Pattern Antalgic Decreased Stride Length Decreased Feet Clearance Flexed Trunk Step-to Gait Wide Based Gait Factors Limiting Gait Function Factors Limiting Gait Function Decreased Activity Tolerance Decreased Strength Pain Poor Balance Comments Gait Comments Pt ambulated several steps forward then turned around to go to the sink to brush teeth. Stood by sink to urinate then c/o pain in shoulder. Requested to return to chair to shave and brush teeth. Backed into chair and sat with use of LUE with control. M5 PT-IP Objective Assessments Start: 02/04/18 16:09 Freq: NEEDED Status: Active Protocol: Document 02/05/18 10:15 RCC (Rec: 02/05/18 10:31 RCC [id number]) Orientation Orientation/Cognition Level of Alertness Alert Orientation Name Age Birthday Month Date Place Situation Gross Range of Motion Upper Extremity ROM Assessment Right Impaired Impairments R shoulder flexion limited to lifting arm off of arm rest of chair, but no further. Lower Extremity ROM Assessment Within Functional Limits Strength Upper Extremity Strength Assessment Right Impaired Lower Extremity Strength Assessment Bilaterally Impaired Hip flexion R 3+/5 and L 4/5 Knee flexion and extension 4/5 B Ankle DF 4+/5 R and 5/5 L Comments Strength Comments unable to test RUE with MMT due to pain. M6 PT-IP Treatment Start: 02/04/18 16:09 Freq: NEEDED Status: Active Protocol: Document 02/06/18 14:39 SA (Rec: 02/06/18 14:50 SA [id number]) Physical Therapy Treatment Exercises Exercises Ankle Pumps Gluteal Sets Short Arc Quads Seated Knee Flexion/Extension Knee ROM Measurement seated marching Education Education Provided Precautions Post-Op Packet Safety Other Treatments Other Treatment Performed Completed exercises in sitting . Tolerated treatment well. M7 PT-IP Assessment and Plan Start: 02/04/18 16:09 Freq: NEEDED Status: Active Protocol: Document 02/09/18 14:04 LJ (Rec: 02/09/18 14:43 LJ [id number]) PT Summary Assessment and Plan Summary Assessment Summary Pt not willing to ambulate in hallway. Attempted to get to sink to groom but was in too much pain to stand any longer. Ambulated 15 feet to sink with decreased steps and speed . Stood for 1 minute w/o use of UEs -no LOB. Able to balance with WBOS while peeing . Left pt in chair with all needs to brush teeth and shave . Notified nursing. Goals Bed Mobility Goal Contact Guard Assistance Transfer Goal Standby Assistance Gait Goal Standby Assistance Gait Distance 150 Other Goals up/down 2 steps with R ascending rail and CGA Days to Meet Goals 3 Frequency of Treatment Frequency Of Treatment Twice a Day Treatment Plan Other Recommendations and Next Treatment Progress gait, transfers, and Focus bed mobility. Recommendations To Nursing Amount of Assist Needed 1 Person Assist Discharge Recommendations PT Discharge Recommendations SNF Rehab
--- NOTE | 2018-02-09 15:34 | CM.DPC ---
DCP: continued: met again this afternoon with pt and his after Dr. Miller was here to see him. DC tomorrow seems likely if pt remains stable so did let pt and his know that [facility] now [facility] a pvt room and, if pt does still want this and does d/c tomorrow they will accept him. Pt's does remind pt of the reasons the shared room with window at [facility] still might be best (Dr. Arce to follow, her ability to see him frequently). Assured them both options will be open tomorrow and they can followup with Dr. Arce and EDWINA Knight for final decision. Pt remains reluctantly agreeable to snf plan. Need: PASRR
[2018-02-09] MEDS: TAMSULOSIN 0.4 MG CAPSULE PO (17:07)
[2018-02-10 00:15] VITALS: O2SAT 96
[2018-02-10 00:17] VITALS: BP 167/88; PULSE 93; RESP 20; TEMP 36.8; O2SAT 94
[2018-02-10 04:00] VITALS: BP 147/82; PULSE 85; RESP 20; TEMP 37.4; O2SAT 91
[2018-02-10] MEDS: AMPICILLIN/SULBACTAM 3 GM 3 GM in SODIUM CHLORIDE 0.9% 100 ML IV (04:39)
[2018-02-10] MEDS: OXYCODONE IR 5 MG TABLET 10 MG PO ×2 (04:41→08:47)
[2018-02-10 05:33] LABS: Add Manual Diff / Slide Review NO; Basophils Percent Auto 0.5 % (0-2); Hematocrit 29.8 % (41-53); Hemoglobin 10.2 g/dL (13.5-17.5); Mean Corpuscular HGB Conc 34.3 % (30-36); Mean Corpuscular Hemoglobin 32.7 PG (26-34); Mean Corpuscular Volume 95.1 fL (80-100); Monocytes Percent Auto 9.3 % (3-14); Neutrophils Absolute Auto 5400 /uL (3000-5900); Neutrophils Percent Auto 66.2 % (50-75); Platelet Count 252 X10^3/uL (150-400); Red Blood Cell Count 3.13 X10^6/uL (4.5-5.9); Red Cell Distribution Width 14.6 % (11.6-14.8); White Blood Cell Count 8.2 X10^3/uL (4.5-11.0)
[2018-02-10 05:40] LABS: Blood Urea Nitrogen 9 mg/dL (9-20); Calcium 8.4 mg/dL (8.4-10.2); Carbon Dioxide 29 mmol/L (22-32); Chloride 100 mmol/L (98-107); Estimated Glomerular Filt Rate > 60.0 mL/min (>60); Glucose 110 mg/dL (80-110); HEMOLYSIS < 15 (0-50); Potassium 3.3 mmol/L (3.4-5.1); Sodium 141 mmol/L (137-145)
[2018-02-10] MEDS: PANTOPRAZOLE 20 MG TABLET PO (06:23)
[2018-02-10 08:00] VITALS: BP 150/79; PULSE 84; RESP 18; TEMP 36.9; O2SAT 93; O2SAT 96
--- NOTE | 2018-02-10 08:18 | CM.DPC ---
Referral faxed to [facility]
--- NOTE | 2018-02-10 08:36 | P.DS_ITS ---
History of Present Illness Date Patient Seen: 02/10/18 Time Patient Seen: 08:28 Chief complaint: Fall Down Stairs on blood thinners Narrative: Patient is a 77-year-old male well known to me who has been recovering from his right shoulder injury from previous fall. Overall had been doing better. Apparently had been drinking somewhere between 6 drinks in 1 gin unclear patient states 1 drink family says another. I have got most of the history from the . Apparently patient had no complaints and was going downstairs when he fell down 8 [address]iled stairs. Was completely unconscious at the base of the stairs when found him. Bleeding excessively. No other significant new changes or complaints. Patient awoke and seemed to know where he was. 911 was called he was brought into the emergency room. Where CT scan was read as negative and laceration on his right posterior scalp was repaired. Otherwise patient today as planned complaining of severe pain in his right back and upper chest. Hurts to take a deep breath hurts to breathe no other changes. No dizziness lightheadedness or other complaint or problem. Remembers the event going down the stairs does not remember what happened before that. No other significant change. states he is drinking somewhere between somewhat during the day which she is unclear but 4 glasses of wine and 2 scotches at night on average. Patient denies this. No other changes. Has been much more immobile since his shoulder injury. No other significant changes. Past medical history: Coronary artery disease CABG x4 2009 Atrial fibrillation History of esophageal stricture Hypercholesterolemia Hypertension Gout BPH History of alcohol abuse Tobacco abuse quit when he was 33 Past surgical history CABG x1 Habits alcohol as above no cigarettes or tobacco use no other drugs Family history. Father in his 80s no major alcohol issues Mother in her 30s unknown cause Sister multiple myeloma Sec sister of mental health issues. Social history lives with of 53 years does have supportive family in the area. They have 1 son in area and involved. Retired. Discharge Providers Date of admission: 02/04/18 01:58 Primary care physician: Enrike Arce MD Consults: 02/04/18 02:35 Consult to Physical Therapy Evaluate & Treat Comment: high fall risk Physician Instructions: Evaluate and Treat Consult to Physician Routine Comment: Consulting Provider: Enrike Arce Reason for consultation: admission Has provider been notified: Yes 02/04/18 08:37 Consult to Occupational Therapy Evaluate & Treat Comment: Physician Instructions: Evaluate and treat Consult to Physical Therapy Evaluate & Treat Comment: Physician Instructions: Evaluate and Treat 02/06/18 10:02 Consult to Speech Therapy Evaluate & Treat Comment: Physician Instructions: Evaluate and treat 02/06/18 13:19 Consult to Physician Routine Comment: Consulting Provider: Bishop Durham Reason for consultation: trauma Has provider been notified: Yes Discharge provider: Enrike Arce MD Discharge Date: 02/10/18 Summary Discharge Diagnosis: Bilateral rib fractures 1st through 4 on right 1st and 2nd on left. Anemia Concussion Right scalp head laceration Metabolic encephalopathy Pneumonia Recurrent falls History of alcohol abuse Atrial fibrillation Coronary artery disease BPH Hospital Course: Problem 1. Bilateral rib fractures. Patient had a significant fall CT scan showed 1st through 4th ribs on the right 1st and 2nd ribs on the left were fractured no evidence of vascular damage. Initially he did have a significant drop in hematocrit but it was felt to be secondary to the amount of bloody loss from his head laceration not intrathoracic. Also with fluid hydration. Patient has slowly been improving over time but still has difficulty mobilizing. Minimal motivation. Pain control has been good with oxycodone 10 mg every 3 hr. Patient will be followed as outpatient and will be weaned on his pain medication as he is able. Biggest thing will be mobilization which will need with physical therapy and long-term sniff treatment hopefully 2-4 weeks Problem 2. Anemia. Patient was noted to be anemia and day 2. There was no definitive evidence on CT scan of any leaking or bleeding. He was aggressively hydrated on admission and had a significant head laceration with a large amount of blood loss and was felt to be secondary to that. Three days prior to admission he had a drop in hematocrit and chest x-ray was followed there is some question of possible hemothorax but repeat showed no evidence of change and was felt to be not significant surgeons had seen him and felt that he was stable. Problem 3. Concussion. Patient had a significant concussion and had some mental status changes during his admission. It was felt to be a combination of alcohol withdrawal and head trauma. Much more stable now and doing well. Will need to be followed as an outpatient. Initial CT scan was negative. Problem 4. Right scalp head laceration resolved. Patient healed well. Was resolved on day of discharge immanuel removed. Will need to follow as outpatient for signs of infection but at this point no further treatment needed. Problem 5. Metabolic encephalopathy. Initially over the 1st 3 or 4 days he was having significant difficulty with where he was and how he was doing. Was not really alert and awake. It was felt to be secondary to his concussion is CT scan was negative and his withdrawal. He was completely back to his normal self on discharge. Problem 6. Pneumonia. Patient was questionably had pneumonia on CT scan was treated with antibiotics but felt to be adequately treated on discharge no further treatment. Problem 7. Atrial fibrillation. Control was good during hospitalization. It was decided due to his recurrent falls that no further Coumadin will be used risk was discussed with both him and his . They understand will use aspirin a day. Problem 8. Recurrent falls. I think this is a combination of mostly drinking. We had a long discussion about that hopefully we can get him to quit not real positive but will see how things go with [facility] placement. Problem number 9. Alcohol abuse. Minimal withdrawal overall did well we discussed his importance and need to stop. Coronary artery disease stable throughout course of admission. BPH. Doing well. No major issues continue tamsulosin. Status at Discharge Cognitive/behavioral status at discharge: Near baseline. Functional status at discharge: uses cane/walker Overall status at discharge: patient is not back to baseline Time Spent with Patient Greater than 30 minutes Exam Vital Signs (past 8 hours): - 02/10/18 04:00 Temperature 99.4 F Pulse Rate 85 Respiratory Rate 20 Blood Pressure 147/82 H Pulse Oximetry 91 Oxygen Delivery Method CPAP Oxygen Flow Rate 0 Objective Labs Result Diagrams: 02/10/18 04:42 02/10/18 04:42 Labs: Laboratory Results - last 24 hr 02/10/18 02/10/18 04:42 04:42 WBC 8.2 RBC 3.13 L Hgb 10.2 L Hct 29.8 L MCV 95.1 MCH 32.7 MCHC 34.3 RDW 14.6 Plt Count 252 Neut % (Auto) 66.2 Lymph % (Auto) 22.0 L Carson % (Auto) 9.3 Eos % (Auto) 2.0 Baso % (Auto) 0.5 Neut # (Auto) 5400 Sodium 141 Potassium 3.3 L Chloride 100 Carbon Dioxide 29 BUN 9 Creatinine 0.50 L Estimated GFR > 60.0 BUN/Creatinine Ratio 18.0 Glucose 110 Calcium 8.4 Discharge Plan Discharge Plan Patient Disposition: SNF Transfer to: [facility] Under care of provider: delia rivera Transportation: Facility vehicle Diagnostic studies (x-ray, etc.): chest xray saturday02/14/18 Labs: cbc and bmp on 02/13/18 Consult as needed: Mental health and Podiatry Discharge comment: please remove immanuel from scalp laceration I certify the postop hospital shelter care is medically necessary on a continuing basis for any conditions for which he/ she received care during this hospitalization.: Yes The receiving facility has agreed to accept transfer and provide medical treatment.: Yes Discharge Med Rec/Prescriptions Prescriptions: New docusate sodium 100 mg Capsule 100 mg PO BID Qty: 60 RF: 1 oxycodone 5 mg Tablet 10 mg PO Q3HR PRN (Reason: Pain, Severe (7-10)) Qty: 20 RF: 0 Continue atorvastatin [Lipitor] 40 mg Tablet 40 mg PO DAILY RF: 0 omeprazole 10 mg Capsule,Delayed Release(Dr/Ec) 10 mg PO DAILY RF: 0 warfarin [Coumadin] 5 mg Tablet 5 mg PO 2XW RF: 0 tamsulosin 0.4 mg capsule 1 cap PO QPM RF: 0 allopurinol 300 mg tablet 300 mg PO DAILY RF: 0 metoprolol succinate 100 mg tablet extended release 24 hr 50 mg PO BID RF: 0 desoximetasone 0.25 % Cream 1 applic TOPICAL DAILY RF: 0 lisinopril 5 mg Tablet 5 mg PO DAILY RF: 0 Discontinued warfarin [Coumadin] 2.5 mg Tablet 2.5 mg PO 5XW RF: 0 hydrocodone-acetaminophen 5-325 mg tablet 2 tab PO Q4H PRN (Reason: Pain (Scale Score 7-10)) RF: 0 Follow up/Referrals: Enrike Arce MD [Primary Care Provider] - Discharge Health Status Brief summary of current health status: s/p significant fall with history of alcohol abuse. Sec fall. History of AFib. Significant bleeding. [place] to be some secondary to probable had lack and fluid but was concerned for chest bleeding. No evidence after following through weekend. Patient otherwise is stable mostly pain control issues. Multidrug resistant organism: No MDRO MDRO Verified by culture: Yes Precautions: [place] Provider Discharge Instructions Diet: Diet as Tolerated Liquid consistency: Normal/Thin Food texture: Regular Activity: As tolerated. With physical therapy. Other treatments: Needs PT and OT. Skin/Wound/Dressing Care Report to your healthcare provider any signs of infection, such as:: chills, fever, night sweats, increased pain and unusual drainage Special Rehabilitation Services Reason for rehabilitation: Other Rehab type: Physical therapy and Occupational therapy Restrictions to mobility: Pain secondary to fractured 1st through 4th ribs 1st and 2nd ribs on left Discharge Data Primary Care Provider: Enrike Arce Attending Provider: Enrike Acre Admit Date/Time: 02/04/18 01:58
[2018-02-10] MEDS: POTASSIUM CHLORIDE 20 MEQ TAB 40 MEQ PO (08:46)
[2018-02-10] MEDS: ALLOPURINOL 300 MG TABLET PO (08:48)
[2018-02-10] MEDS: LISINOPRIL 5 MG TABLET PO (08:48)
[2018-02-10] MEDS: METOPROLOL ER 50 MG TABLET PO (08:48)
[2018-02-10] MEDS: ATORVASTATIN 20 MG TABLET 40 MG PO (08:48)
--- NOTE | 2018-02-10 09:01 | PC.NURSE ---
Addendum entered by Isra Walsh R.N. 02/10/18 11:02: Pt left for d/c via w/c van in no acute distress. All belongings gathered and sent with pt. D/c packet sent with tier truck driver. Original Note: Addendum entered by Isra Walsh R.N. 02/10/18 10:40: Report given to admission nurse at . Original Note: Addendum entered by Isra Walsh R.N. 02/10/18 09:31: Cleansed scalp lac with SNS,wiped with sterile gauze. Removed 3 immanuel. Lac is scabbed without drainage. Cleansed lul wound removing some dried blood. Left scab intact. No drainage. Pt tolerated well. Reports no pain. Sitting up to chair in no acute distress. at bedside. Original Note: Called to Юлия Zuleta and left message for admission nurse to return call re: calling report. Ayanna states that admission nurse does not come in until 1000. Plan is for pt to d/c to [facility] at 1100.
--- NOTE | 2018-02-10 10:18 | PT.IPTN ---
Current Diagnoses Multiple fractures of ribs, right side, initial encounter for closed fracture (02/04/18) Physical Therapy Treatment Note M3 PT-IP Subjective Start: 02/04/18 16:09 Freq: NEEDED Status: Active Protocol: Document 02/10/18 10:18 RS (Rec: 02/10/18 10:18 RS [id number]) Subjective Physical Therapy Visit Type Type Administrative Note Notes Pt is discharging today at 11am to SNF. Pt has no other acute PT goals/needs to be reached before discharge. Acute PT will sign off.
--- NOTE | 2018-02-10 12:17 | CM.DPC ---
Confirmed with Kayla at [facility] that they had private room available. Dr. Arce was seeing patient. let him and know that this would be short term until patient gets stronger. Stated that he would complete discharge orders, since this embedded case manager already confirmed that room was available. Faxed over referral notes, as well as signed medication list and PASSR. P: Patient is to be discharged today at [facility]. Facility is to order picker at 11:00am. Karissa Mohamud RN/[facility]
== END 2018-02-10 11:03 | DRG 183 ==
LOC: ED 02-04 01:58 → ICU 02-04 07:34 → AC 02-05 16:40 → ICU 02-06 23:26
PROVIDERS: Family Medicine; Admitting Provider Family Medicine; Emergency Provider Emergency Medicine; Family Provider Family Medicine; PCP Family Medicine; Visit Provider Family Medicine
DX: S22.41XA Multiple fractures of ribs, right side, initial encounter for closed fracture (principal); G93.41 Metabolic encephalopathy; S27.2XXA Traumatic hemopneumothorax, initial encounter; J18.9 Pneumonia, unspecified organism; S06.0X9A Concussion with loss of consciousness of unspecified duration, initial encounter; D62 Acute posthemorrhagic anemia; D68.32 Hemorrhagic disorder due to extrinsic circulating anticoagulants; S22.32XA Fracture of one rib, left side, initial encounter for closed fracture; W10.9XXA Fall (on) (from) unspecified stairs and steps, initial encounter; Z91.81 History of falling; Y92.009 Unspecified place in unspecified non-institutional (private) residence as the place of occurrence of the external cause; I48.91 Unspecified atrial fibrillation; Z79.01 Long term (current) use of anticoagulants; E86.0 Dehydration; D64.9 Anemia, unspecified; S01.01XA Laceration without foreign body of scalp, initial encounter; N40.0 Benign prostatic hyperplasia without lower urinary tract symptoms; E78.00 Pure hypercholesterolemia, unspecified; I10 Essential (primary) hypertension; M1A.9XX0 Chronic gout, unspecified, without tophus (tophi); Z87.891 Personal history of nicotine dependence; T45.515A Adverse effect of anticoagulants, initial encounter; K59.00 Constipation, unspecified; I25.10 Atherosclerotic heart disease of native coronary artery without angina pectoris; Z95.1 Presence of aortocoronary bypass graft
CPT/HCPCS: 12002; 36415; 70450; 71045; 71046; 72125; 73030; 80048; 80053; 81001; 82550; 82553; 83880; 84484; 85014; 85018; 85025; 85610; 87797; 92610; 93005; 94760; 96360; 96361; 97110; 97116; 97162; 97166; 97530; 97535; 99231; 99283; 99285; J0295; J1650; J2060

== ENCOUNTER → 2018-03-11 09:09 | Outpatient (CLI) | payer MEDICARE, SELFPAY ==
[2018-02-08 15:53] VITALS: BMI 31.1
[2018-03-11 09:40] LABS: Add Manual Diff / Slide Review NO; Basophils Percent Auto 0.6 % (0-2); Eosinophils Percent Auto 1.7 % (2-4); Hematocrit 39.9 % (41-53); Lymphocytes Percent Auto 23.9 % (25-40); Mean Corpuscular HGB Conc 32.5 % (30-36); Mean Corpuscular Hemoglobin 30.6 PG (26-34); Monocytes Percent Auto 6.7 % (3-14); Neutrophils Absolute Auto 5700 /uL (3000-5900); Neutrophils Percent Auto 67.1 % (50-75); Platelet Count 245 X10^3/uL (150-400); Red Blood Cell Count 4.24 X10^6/uL (4.5-5.9); Red Cell Distribution Width 14.7 % (11.6-14.8); White Blood Cell Count 8.5 X10^3/uL (4.5-11.0)
[2018-03-11 09:59] LABS: Alanine Aminotransferase 24 IU/L (21-72); Albumin 4.4 g/dL (3.5-5.0); Albumin Globulin Ratio 1.6 (1.0-2.8); Alkaline Phosphatase 101 U/L (38-126); Aspartate Aminotransferase 18 IU/L (17-59); BUN Creatinine Ratio 11.7 (6-22); Bilirubin Total 0.7 mg/dL (0.2-1.3); Blood Urea Nitrogen 7 mg/dL (9-20); Calcium 9.5 mg/dL (8.4-10.2); Carbon Dioxide 27 mmol/L (22-32); Chloride 102 mmol/L (98-107); Cholesterol 111 mg/dL (140-199); Estimated Glomerular Filt Rate > 60.0 mL/min (>60); Globulin 2.8 g/dL (1.7-4.1); Glucose 122 mg/dL (80-110); HDL Cholesterol 45 mg/dL (40-60); HEMOLYSIS < 15 (0-50); LDL Cholesterol Calculated 44 mg/dL (<100); Potassium 3.8 mmol/L (3.4-5.1); Sodium 142 mmol/L (137-145); Total Protein 7.2 g/dL (6.3-8.2); Triglycerides 109 mg/dL (35-150)
== END ==
PROVIDERS: Family Provider Family Medicine; PCP Family Medicine; Visit Provider Internal Medicine Cardiovascular Disease
DX: I48.0 Paroxysmal atrial fibrillation (principal); I25.810 Atherosclerosis of coronary artery bypass graft(s) without angina pectoris; E78.5 Hyperlipidemia, unspecified
CPT/HCPCS: 36415; 80053; 80061; 85025

== ENCOUNTER → 2018-09-11 10:20 | Outpatient (CLI) | payer MEDICARE, SELFPAY ==
[2018-02-08 15:53] VITALS: BMI 31.1
[2018-09-11 11:42] LABS: Add Manual Diff / Slide Review NO; Basophils Absolute Auto 0 /uL (0-100); Basophils Percent Auto 0.5 % (0-2); Eosinophils Absolute Auto 100 /uL (0-450); Eosinophils Percent Auto 1.7 % (2-4); Hematocrit 39.7 % (41-53); Hemoglobin 13.2 g/dL (13.5-17.5); Lymphocytes Absolute Auto 2100 /uL (1100-4500); Lymphocytes Percent Auto 27.3 % (25-40); Mean Corpuscular HGB Conc 33.4 % (30-36); Mean Corpuscular Hemoglobin 30.3 PG (26-34); Mean Corpuscular Volume 90.8 fL (80-100); Monocytes Absolute Auto 500 /uL (0-900); Neutrophils Absolute Auto 4800 /uL (1500-7000); Neutrophils Percent Auto 63.5 % (50-75); Platelet Count 202 X10^3/uL (150-400); Red Blood Cell Count 4.37 X10^6/uL (4.5-5.9); Red Cell Distribution Width 14.8 % (11.6-14.8); White Blood Cell Count 7.6 X10^3/uL (4.5-11.0)
[2018-09-11 11:52] LABS: Alanine Aminotransferase 21 IU/L (21-72); Albumin 4.2 g/dL (3.5-5.0); Albumin Globulin Ratio 1.6 (1.0-2.8); Alkaline Phosphatase 49 U/L (38-126); Aspartate Aminotransferase 21 IU/L (17-59); BUN Creatinine Ratio 15.7 (6-22); Blood Urea Nitrogen 11 mg/dL (9-20); Calcium 9.4 mg/dL (8.4-10.2); Carbon Dioxide 29 mmol/L (22-32); Chloride 103 mmol/L (98-107); Estimated Glomerular Filt Rate > 60.0 mL/min (>60); Globulin 2.7 g/dL (1.7-4.1); Glucose 114 mg/dL (80-110); HEMOLYSIS < 15 (0-50); Potassium 4.1 mmol/L (3.4-5.1); Sodium 140 mmol/L (137-145); Total Protein 6.9 g/dL (6.3-8.2)
== END ==
PROVIDERS: Family Provider Family Medicine; PCP Family Medicine; Visit Provider Internal Medicine Cardiovascular Disease
DX: I25.810 Atherosclerosis of coronary artery bypass graft(s) without angina pectoris (principal); I48.0 Paroxysmal atrial fibrillation; Z51.81 Encounter for therapeutic drug level monitoring; Z79.899 Other long term (current) drug therapy
CPT/HCPCS: 36415; 80053; 85025

== ENCOUNTER → 2019-02-13 14:43 | Outpatient (CLI) | payer MEDICARE, SELFPAY ==
[2018-02-08 15:53] VITALS: BMI 31.1
[2019-02-13 15:13] LABS: INR 2.9 (0.9-1.3); Prothrombin Time 33.9 SECONDS (10.1-12.7)
== END ==
PROVIDERS: Family Provider Family Medicine; PCP Family Medicine; Visit Provider Dentist Oral and Maxillofacial Surgery
DX: I25.83 Coronary atherosclerosis due to lipid rich plaque (principal)
CPT/HCPCS: 36415; 85610

== ENCOUNTER → 2019-07-02 14:31 | Outpatient (CLI) | payer MEDICARE, SELFPAY ==
[2018-02-08 15:53] VITALS: BMI 31.1
[2019-07-02 16:05] LABS: BUN Creatinine Ratio 20.6 (6-22); Blood Urea Nitrogen 13 mg/dL (9-20); Calcium 9.2 mg/dL (8.4-10.2); Carbon Dioxide 31 mmol/L (22-32); Chloride 104 mmol/L (98-107); Estimated Glomerular Filt Rate > 60.0 mL/min (>60); Glucose 111 mg/dL (80-110); HEMOLYSIS 21 (0-50); Magnesium 2.2 mg/dL (1.6-2.3); Potassium 4.3 mmol/L (3.4-5.1); Sodium 140 mmol/L (137-145)
== END ==
PROVIDERS: Family Provider Family Medicine; PCP Family Medicine; Referring Provider Physician Assistant Medical; Visit Provider Physician Assistant Medical
DX: I48.0 Paroxysmal atrial fibrillation (principal)
CPT/HCPCS: 36415; 80048; 83735

== ENCOUNTER → 2019-12-12 14:19 | Outpatient (CLI) | payer MEDICARE, SELFPAY ==
[2018-02-08 15:53] VITALS: BMI 31.1
[2019-12-15 15:45] LABS: COVID19 Sendout Not detected (Not Detect)
== END ==
PROVIDERS: Family Provider Family Medicine; PCP Family Medicine; Visit Provider Physician Assistant
DX: Z11.59 Encounter for screening for other viral diseases (principal)
CPT/HCPCS: 87635

== ENCOUNTER → 2019-12-15 13:46 | Outpatient (CLI) | payer MEDICARE, SELFPAY ==
[2018-02-08 15:53] VITALS: BMI 31.1
[2019-12-15 14:25] LABS: COVID19 -Nasal RAPID Negative (Negative)
--- NOTE | 2019-12-16 18:14 | DI.NM.S_ITS ---
DATE OF SERVICE: 12/15/2019 PROCEDURE: Pharmacological perfusion study, INDICATION: Atrial fibrillation with history of bypass surgery, hypertension, hyperlipidemia. RADIOPHARMACEUTICAL: 26.3 millicurie technetium-99m Myoview IV was injected at stress and 19.2 millicurie technetium-99m Myoview IV was injected at rest. CARDIAC STRESS: The patient underwent pharmacological perfusion study under the supervision of an attending staff using standard IV Lexiscan protocol. The patient remained hemodynamically stable. Baseline EKG showed atrial fibrillation with ventricular rate about 114. During stress, there were some nonspecific ST changes. The patient remained in AFib. No significant ventricular tachycardia. No chest pain. Had minimal dyspnea. RAW DATA: There is increased subdiaphragmatic activity. Patient's weight is 250 pounds. GATED STUDY: Stress LV ejection fraction 58 percent without any obvious wall motion abnormalities. Resting end-diastolic volume 90 mL. TID ratio 1.24. Lung/heart ratio 0.27, which is within normal limits. MYOCARDIAL PERFUSION: There are no prone images. Stress supine and stress prone images were compared to each other. There appears to be predominantly a fixed small size, moderate to severely decreased perfusion of mid anterior wall extending into the mid to distal portion of anterior septum. No obvious reversible ischemia. 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 Overall left ventricular ejection fraction is 58 percent . Infarction burden is not large. Correlate clinically. DemarOneal - Jamil/demetria doc#: [id number]/job#: [id number] dd: 12/16/2019 17:09:00 dt: 12/16/2019 18:06:00 DICTATING MD/COPIES TO: Steve Chopra MD COPIES MNE: SUSAN;
== END ==
PROVIDERS: Family Provider Family Medicine; PCP Family Medicine; Referring Provider Family Medicine; Visit Provider Physician Assistant Medical
DX: R94.39 Abnormal result of other cardiovascular function study (principal); I25.10 Atherosclerotic heart disease of native coronary artery without angina pectoris; I48.91 Unspecified atrial fibrillation; Z11.59 Encounter for screening for other viral diseases; I10 Essential (primary) hypertension; E78.5 Hyperlipidemia, unspecified; Z95.1 Presence of aortocoronary bypass graft
CPT/HCPCS: 78452; 87635; 93017; A9502; J2785

== ENCOUNTER → 2020-03-11 11:23 | Outpatient (CLI) | payer MEDICARE, SELFPAY ==
[2018-02-08 15:53] VITALS: BMI 31.1
[2020-03-11 12:59] LABS: Add Manual Diff / Slide Review NO; Basophils Absolute Auto 100 /uL (0-100); Basophils Percent Auto 0.8 % (0-2); Eosinophils Absolute Auto 300 /uL (0-450); Eosinophils Percent Auto 3.9 % (2-4); Hematocrit 38.5 % (41-53); Hemoglobin 13.1 g/dL (13.5-17.5); Lymphocytes Absolute Auto 2000 /uL (1100-4500); Lymphocytes Percent Auto 29.5 % (25-40); Mean Corpuscular Hemoglobin 31.4 PG (26-34); Mean Corpuscular Volume 92.3 fL (80-100); Monocytes Absolute Auto 500 /uL (0-900); Monocytes Percent Auto 7.3 % (3-14); Neutrophils Absolute Auto 3900 /uL (1500-7000); Neutrophils Percent Auto 58.5 % (50-75); Platelet Count 186 X10^3/uL (150-400); Red Blood Cell Count 4.17 X10^6/uL (4.5-5.9); White Blood Cell Count 6.6 X10^3/uL (4.5-11.0)
[2020-03-11 13:58] LABS: Alanine Aminotransferase 14 IU/L (<50); Albumin 3.8 g/dL (3.5-5.0); Albumin Globulin Ratio 1.5 (1.0-2.8); Alkaline Phosphatase 54 U/L (38-126); Aspartate Aminotransferase 18 IU/L (17-59); BUN Creatinine Ratio 27.6 (6-22); Bilirubin Total 0.8 mg/dL (0.2-1.3); Blood Urea Nitrogen 16 mg/dL (9-20); Calcium 8.7 mg/dL (8.4-10.2); Carbon Dioxide 29 mmol/L (22-32); Chloride 106 mmol/L (98-107); Cholesterol 121 mg/dL (140-199); Estimated Glomerular Filt Rate > 60.0 mL/min (>60); Globulin 2.5 g/dL (1.7-4.1); Glucose 104 mg/dL (80-110); HDL Cholesterol 33 mg/dL (40-60); HEMOLYSIS < 15 (0-50); LDL Cholesterol Calculated 73 mg/dL (<100); Potassium 4.2 mmol/L (3.4-5.1); Sodium 140 mmol/L (137-145); Total Protein 6.3 g/dL (6.3-8.2); Triglycerides 77 mg/dL (35-150); VLDL Cholesterol Calculated 15 mg/dL (2-30)
== END ==
PROVIDERS: Family Provider Family Medicine; PCP Family Medicine; Referring Provider Family Medicine; Visit Provider Family Medicine
DX: D64.9 Anemia, unspecified (principal); I10 Essential (primary) hypertension; E78.5 Hyperlipidemia, unspecified
CPT/HCPCS: 36415; 80053; 80061; 84443; 85025

== ENCOUNTER → 2020-08-05 11:41 | Outpatient (CLI) | payer MEDICARE, SELFPAY ==
[2018-02-08 15:53] VITALS: BMI 31.1
[2020-08-05 13:25] LABS: Cholesterol 81 mg/dL (140-199); HDL Cholesterol 26 mg/dL (40-60); LDL Cholesterol Calculated 34 mg/dL (<100); Triglycerides 103 mg/dL (35-150)
== END ==
PROVIDERS: Family Provider Family Medicine; PCP Family Medicine; Referring Provider Physician Assistant Medical; Visit Provider Physician Assistant Medical
DX: E78.00 Pure hypercholesterolemia, unspecified (principal)
CPT/HCPCS: 36415; 80061

== ENCOUNTER → 2020-12-13 12:38 | Outpatient (CLI) | payer MEDICARE, SELFPAY ==
[2018-02-08 15:53] VITALS: BMI 31.1
--- NOTE | 2020-12-13 12:41 | DI.RAD.S_ITS ---
PROCEDURE: XR SHOULDER RT MIN 2V INDICATIONS: RT SHOULDER PAIN TECHNIQUE: 3 views of the shoulder were acquired. COMPARISON: [facility], CR, XR SHOULDER RT MIN 2V, 02/03/2018, 21:49. FINDINGS: Bones: Multiple healed right-sided rib fractures are identified. There are degenerative changes of the right glenohumeral joint and right acromioclavicular joint. The acromial humeral interval is narrowed suggesting rotator cuff injury. Soft tissues: No suspicious soft tissue calcifications. IMPRESSION: 1. Degenerative changes of the right acromioclavicular joint and glenohumeral joint. 2. Narrowing of the acromiohumeral interval consistent with rotator cuff injury. 3. Calcifications lateral to the humeral head are similar to the prior x-ray consistent with remote trauma or calcific tendinosis. Dictated by: Pedro Pablo Alonso M.D. on 12/13/2020 at 17:51 Approved by: Pedro Pablo Alonso M.D. on 12/13/2020 at 17:54
== END ==
PROVIDERS: Family Provider Family Medicine; PCP Family Medicine; Referring Provider Family Medicine; Visit Provider Family Medicine
DX: M25.511 Pain in right shoulder (principal)
CPT/HCPCS: 73030

== ENCOUNTER → 2021-02-06 11:32 | Outpatient (CLI) | payer MEDICARE, SELFPAY ==
[2018-02-08 15:53] VITALS: BMI 31.1
--- NOTE | 2021-02-06 | DI.MRI.S_ITS ---
PROCEDURE: MR SHOULDER RT WO CON INDICATIONS: Anterior dislocation of right humerus, subsequent TECHNIQUE: Noncontrast oblique coronal T2 fast spin echo with fat saturation, oblique sagittal T1 spin echo and T2 fast spin echo with fat saturation, axial T1 spin echo and T2 fast spin echo with fat saturation through the shoulder. COMPARISON: None. FINDINGS: Rotator cuff: Mild supraspinatus tendinopathy. No discrete tear seen. The infraspinatus, teres minor and subscapularis tendons appear grossly intact. Diffuse atrophy of the rotator cuff muscles with relative sparing of the teres minor . Fatty infiltration of the teres minor is present. No definite space-occupying lesion noted within the suprascapular or spinoglenoid notch. Bones and bursae: No bone marrow contusions or fractures. Mild marrow signal change at the surgical neck of the humerus probably hemopoietic marrow, although nonspecific. Moderate to severe hypertrophic acromioclavicular joint degeneration. Mild to moderate glenohumeral joint degeneration. Circumferential degenerative spurring and sclerosis of the glenoid. Acromion demonstrates conventional anatomy, without an os acromiale. Moderate subacromial-subdeltoid bursitis. Capsule and soft tissues: Labrum: Not well seen secondary to signal dropout. No discrete intrasubstance fluid signal intensity. Glenohumeral ligaments: Inferior and superior glenohumeral ligaments are intact. Biceps tendon: Long head of the biceps tendon intact. Rotator interval: Normal signal intensity. Coracohumeral ligament: Intact. IMPRESSION: Prominent diffuse rotator cuff muscle atrophy with relative sparing of the the teres minor. The exact etiology unclear as discussed above. Given the absence of space-occupying lesion, nonspecific diffuse neuritis /denervation (such as [place]-Bell syndrome) is in the differential. Recommend clinical correlation. Mild supraspinatus tendinopathy Moderate subacromial-subdeltoid bursitis. No gross labral tear however suboptimal evaluation secondary to signal dropout. AC and glenohumeral joint degeneration. Dictated by: Isra Stauffer M.D. on 02/06/2021 at 12:29 Approved by: Isra Stauffer M.D. on 02/06/2021 at 12:45
== END ==
PROVIDERS: Family Provider Family Medicine; PCP Family Medicine; Referring Provider Orthopaedic Surgery; Visit Provider Orthopaedic Surgery
DX: S43.014D Anterior dislocation of right humerus, subsequent encounter (principal); M75.51 Bursitis of right shoulder; M62.521 Muscle wasting and atrophy, not elsewhere classified, right upper arm; M19.011 Primary osteoarthritis, right shoulder
CPT/HCPCS: 73221

== ENCOUNTER → 2022-04-18 11:34 | Outpatient (CLI) | payer MEDICARE, SELFPAY ==
[2018-02-08 15:53] VITALS: BMI 31.1
[2022-04-18 14:10] LABS: Add Manual Diff / Slide Review NO; Basophils Absolute Auto 0 /uL (0-100); Basophils Percent Auto 0.4 % (0-2); Eosinophils Absolute Auto 0 /uL (0-450); Eosinophils Percent Auto 0.7 % (2-4); Hematocrit 40.9 % (41-53); Hemoglobin 13.5 g/dL (13.5-17.5); Lymphocytes Absolute Auto 1600 /uL (1100-4500); Lymphocytes Percent Auto 22.7 % (25-40); Mean Corpuscular HGB Conc 32.9 % (30-36); Mean Corpuscular Hemoglobin 30.5 PG (26-34); Mean Corpuscular Volume 92.7 fL (80-100); Monocytes Absolute Auto 400 /uL (0-900); Monocytes Percent Auto 6.2 % (3-14); Neutrophils Absolute Auto 4800 /uL (1500-7000); Platelet Count 290 X10^3/uL (150-400); Red Blood Cell Count 4.42 X10^6/uL (4.5-5.9); Red Cell Distribution Width 13.9 % (11.6-14.8); White Blood Cell Count 6.8 X10^3/uL (4.5-11.0)
[2022-04-18 14:38] LABS: Alanine Aminotransferase 20 IU/L (<50); Albumin Globulin Ratio 1.5 (1.0-2.8); Alkaline Phosphatase 41 U/L (38-126); Aspartate Aminotransferase 25 IU/L (17-59); BUN Creatinine Ratio 12.7 (6-22); Blood Urea Nitrogen 8 mg/dL (9-20); Calcium 8.3 mg/dL (8.4-10.2); Carbon Dioxide 28 mmol/L (22-32); Chloride 102 mmol/L (98-107); Cholesterol 144 mg/dL (140-199); Estimated Glomerular Filt Rate > 60 mL/min (>60); Globulin 2.7 g/dL (1.7-4.1); Glucose 109 mg/dL (80-110); HDL Cholesterol 30 mg/dL (40-60); HEMOLYSIS < 15 (0-50); LDL Cholesterol Calculated 88 mg/dL (<100); Potassium 4.2 mmol/L (3.4-5.1); Sodium 138 mmol/L (137-145); Total Protein 6.7 g/dL (6.3-8.2); Triglycerides 132 mg/dL (35-150)
[2022-04-18 15:05] LABS: Prostate Specific Antigen Scrn 3.59 ng/mL (0.1-4.0)
[2022-04-18 15:06] LABS: Thyroid Stimulating Hormone 1.24 uIU/mL (0.47-4.68)
[2022-04-18 15:08] LABS: Testosterone 554 ng/dL (71.8-623)
== END ==
PROVIDERS: Family Provider Family Medicine; PCP Family Medicine; Referring Provider Family Medicine; Visit Provider Family Medicine
DX: D64.9 Anemia, unspecified (principal); I10 Essential (primary) hypertension; Z12.5 Encounter for screening for malignant neoplasm of prostate; E78.5 Hyperlipidemia, unspecified; F52.21 Male erectile disorder
CPT/HCPCS: 36415; 80053; 80061; 84403; 84443; 85025; G0103

== ENCOUNTER → 2022-09-13 14:36 | Outpatient (CLI) | payer MEDICARE, SELFPAY ==
[2018-02-08 15:53] VITALS: BMI 31.1
[2022-09-13 16:23] LABS: BUN Creatinine Ratio 22.2 (6-22); Blood Urea Nitrogen 12 mg/dL (9-20); Calcium 9.4 mg/dL (8.4-10.2); Carbon Dioxide 24 mmol/L (22-32); Chloride 104 mmol/L (98-107); Estimated Glomerular Filt Rate > 60 mL/min (>60); Glucose 95 mg/dL (80-110); HEMOLYSIS < 15 (0-50); Potassium 4.3 mmol/L (3.4-5.1); Sodium 137 mmol/L (137-145)
[2022-09-13 16:29] LABS: Digoxin < 0.4 ng/mL (0.8-2.0)
== END ==
PROVIDERS: Family Provider Family Medicine; PCP Family Medicine; Referring Provider Physician Assistant Medical; Visit Provider Physician Assistant Medical
DX: I48.0 Paroxysmal atrial fibrillation (principal)
CPT/HCPCS: 36415; 80048; 80162

== ENCOUNTER → 2023-04-19 13:46 | Outpatient (CLI) | payer MEDICARE, SELFPAY ==
[2018-02-08 15:53] VITALS: BMI 31.1
[2023-04-19 16:03] LABS: Add Manual Diff / Slide Review NO; Basophils Absolute Auto 0 /uL (0-100); Basophils Percent Auto 0.7 % (0-2); Eosinophils Absolute Auto 100 /uL (0-450); Hematocrit 40.7 % (41-53); Hemoglobin 13.6 g/dL (13.5-17.5); Lymphocytes Absolute Auto 1600 /uL (1100-4500); Lymphocytes Percent Auto 26.4 % (25-40); Mean Corpuscular HGB Conc 33.4 % (30-36); Mean Corpuscular Volume 92.8 fL (80-100); Monocytes Absolute Auto 400 /uL (0-900); Monocytes Percent Auto 6.2 % (3-14); Neutrophils Absolute Auto 3900 /uL (1500-7000); Neutrophils Percent Auto 65.7 % (50-75); Platelet Count 186 X10^3/uL (150-400); Red Blood Cell Count 4.39 X10^6/uL (4.5-5.9); Red Cell Distribution Width 14.5 % (11.6-14.8); White Blood Cell Count 5.9 X10^3/uL (4.5-11.0)
[2023-04-19 16:07] LABS: Hemoglobin A1C% w Est Avg Glu 5.7 % (4.0-6.0)
[2023-04-19 16:21] LABS: Alanine Aminotransferase 18 IU/L (<50); Albumin 3.9 g/dL (3.5-5.0); Albumin Globulin Ratio 1.4 (1.0-2.8); Alkaline Phosphatase 29 U/L (38-126); Aspartate Aminotransferase 25 IU/L (17-59); BUN Creatinine Ratio 17.1 (6-22); Bilirubin Total 1.1 mg/dL (0.2-1.3); Blood Urea Nitrogen 12 mg/dL (9-20); Calcium 9.2 mg/dL (8.4-10.2); Carbon Dioxide 29 mmol/L (22-32); Chloride 102 mmol/L (98-107); Cholesterol 128 mg/dL (140-199); Estimated Glomerular Filt Rate > 60 mL/min (>60); Globulin 2.7 g/dL (1.7-4.1); Glucose 72 mg/dL (80-110); HDL Cholesterol 44 mg/dL (40-60); HEMOLYSIS < 15 (0-50); LDL Cholesterol Calculated 65 mg/dL (<100); Potassium 3.9 mmol/L (3.4-5.1); Sodium 137 mmol/L (137-145); Total Protein 6.6 g/dL (6.3-8.2); Triglycerides 94 mg/dL (35-150); Uric Acid 3.4 mg/dL (3.5-8.5)
[2023-04-19 16:30] LABS: Digoxin < 0.4 ng/mL (0.8-2.0)
[2023-04-19 16:52] LABS: Prostate Specific Antigen 3.48 ng/mL (0.10-4.00)
[2023-04-19 16:55] LABS: Thyroid Stimulating Hormone 0.733 uIU/mL (0.47-4.68)
== END ==
LOC: LAB 13:49
PROVIDERS: Family Provider Family Medicine; PCP Family Medicine; Referring Provider Family Medicine; Visit Provider Family Medicine
DX: R97.20 Elevated prostate specific antigen [PSA] (principal); R73.09 Other abnormal glucose; I10 Essential (primary) hypertension; I48.11 Longstanding persistent atrial fibrillation; E78.5 Hyperlipidemia, unspecified; D64.9 Anemia, unspecified; M10.9 Gout, unspecified
CPT/HCPCS: 36415; 80053; 80061; 80162; 83036; 84153; 84443; 84550; 85025

== ENCOUNTER → 2023-08-05 09:37 | Outpatient (CLI) | payer MEDICARE, SELFPAY ==
[2018-02-08 15:53] VITALS: BMI 31.1
[2023-08-05 11:00] LABS: Add Manual Diff / Slide Review NO; Basophils Absolute Auto 0 /uL (0-100); Basophils Percent Auto 0.7 % (0-2); Eosinophils Absolute Auto 100 /uL (0-450); Eosinophils Percent Auto 1.2 % (2-4); Hematocrit 37.4 % (41-53); Hemoglobin 12.7 g/dL (13.5-17.5); Lymphocytes Absolute Auto 1600 /uL (1100-4500); Lymphocytes Percent Auto 23.6 % (25-40); Mean Corpuscular HGB Conc 33.8 % (30-36); Mean Corpuscular Volume 91.7 fL (80-100); Monocytes Absolute Auto 500 /uL (0-900); Monocytes Percent Auto 7.9 % (3-14); Neutrophils Absolute Auto 4500 /uL (1500-7000); Neutrophils Percent Auto 66.6 % (50-75); Platelet Count 193 X10^3/uL (150-400); Red Blood Cell Count 4.08 X10^6/uL (4.5-5.9); Red Cell Distribution Width 14.4 % (11.6-14.8); White Blood Cell Count 6.8 X10^3/uL (4.5-11.0)
[2023-08-05 11:06] LABS: Hemoglobin A1C% w Est Avg Glu 5.9 % (4.0-6.0)
[2023-08-05 11:17] LABS: Digoxin < 0.4 ng/mL (0.8-2.0)
[2023-08-05 11:19] LABS: Alanine Aminotransferase 18 IU/L (<50); Albumin 3.9 g/dL (3.5-5.0); Albumin Globulin Ratio 1.6 (1.0-2.8); Alkaline Phosphatase 38 U/L (38-126); Aspartate Aminotransferase 26 IU/L (17-59); BUN Creatinine Ratio 20.6 (6-22); Blood Urea Nitrogen 13 mg/dL (9-20); Calcium 8.8 mg/dL (8.4-10.2); Carbon Dioxide 27 mmol/L (22-32); Chloride 106 mmol/L (98-107); Cholesterol 144 mg/dL (140-199); Estimated Glomerular Filt Rate > 60 mL/min (>60); Globulin 2.5 g/dL (1.7-4.1); Glucose 117 mg/dL (80-110); HDL Cholesterol 48 mg/dL (40-60); HEMOLYSIS < 15 (0-50); LDL Cholesterol Calculated 80 mg/dL (<100); Potassium 3.9 mmol/L (3.4-5.1); Sodium 138 mmol/L (137-145); Total Protein 6.4 g/dL (6.3-8.2); Triglycerides 78 mg/dL (35-150); Uric Acid 3.8 mg/dL (3.5-8.5)
[2023-08-05 11:45] LABS: Thyroid Stimulating Hormone 1.54 uIU/mL (0.47-4.68)
== END ==
PROVIDERS: Family Provider Family Medicine; PCP Family Medicine; Referring Provider Family Medicine; Visit Provider Family Medicine
DX: I48.11 Longstanding persistent atrial fibrillation (principal); R73.09 Other abnormal glucose; I10 Essential (primary) hypertension; M10.9 Gout, unspecified; D64.9 Anemia, unspecified; E78.5 Hyperlipidemia, unspecified
CPT/HCPCS: 36415; 80053; 80061; 80162; 83036; 84443; 84550; 85025

== ENCOUNTER → 2023-12-27 11:14 | Outpatient (CLI) | payer MEDICARE, SELFPAY ==
[2018-02-08 15:53] VITALS: BMI 31.1
[2023-12-27 12:47] LABS: BUN Creatinine Ratio 21.9 (6-22); Blood Urea Nitrogen 16 mg/dL (9-20); Calcium 9.2 mg/dL (8.4-10.2); Carbon Dioxide 28 mmol/L (22-32); Chloride 102 mmol/L (98-107); Estimated Glomerular Filt Rate > 60 mL/min (>60); Glucose 108 mg/dL (80-110); HEMOLYSIS < 15 (0-50); Potassium 4.3 mmol/L (3.4-5.1); Sodium 137 mmol/L (137-145)
== END ==
PROVIDERS: Family Provider Family Medicine; PCP Family Medicine; Referring Provider Nurse Practitioner Family; Visit Provider Nurse Practitioner Family
DX: I48.0 Paroxysmal atrial fibrillation (principal)
CPT/HCPCS: 36415; 80048

== ENCOUNTER 2024-03-20 09:58 | Emergency (ER) | payer MEDICARE, SELFPAY ==
[2018-02-08 15:53] VITALS: BMI 31.1
[2024-03-20] VITALS (9 sets, daily range): BP systolic 104–121; BP diastolic 70–94; PULSE 80–97; RESP 14–16; TEMP 36.5; O2SAT 95–99; BMI 27.7
--- NOTE | 2024-03-20 10:11 | DI.CT.S_ITS ---
PROCEDURE: CT HEAD/BRAIN WO CON INDICATIONS: possible first time seizure TECHNIQUE: Noncontrast 4.5 mm thick angled axial sections acquired from the foramen magnum to the vertex, with coronal and sagittal reformats. For radiation dose reduction, the following was used: automated exposure control, adjustment of mA and/or kV according to patient size. COMPARISON: CT, CT HEAD/BRAIN WO CON, 02/03/2018, 22:12. FINDINGS: Image quality: Diagnostic. CSF spaces: Basal cisterns are patent. No extra-axial fluid collections. The ventricles are symmetric in size and shape. Brain: No intracranial bleeds or masses. There is cerebral volume loss for age, with resultant ventricular and sulcal prominence. There are periventricular and deep white matter chronic small vessel ischemic changes. 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 There is intracranial internal carotid artery and vertebral artery atherosclerosis. Skull and face: Calvarium and visualized facial bones appear intact, without suspicious lesions. Sinuses: Small mucous retention cyst in the left sphenoid sinus. The mastoids are clear. IMPRESSION: No acute intracranial pathology. Dictated by: Karina De Luna MD, PhD on 03/20/2024 at 10:49 Approved by: Karina De Luna MD, PhD on 03/20/2024 at 10:51
--- NOTE | 2024-03-20 10:15 | EKG_ITS ---
[address] [id number] [address], [place] [address] Test Date: 2024-03-20 Pat Name: Oneal Benz Department: Room: Gender: Male Employment Program Representative: ASHA : 1940 Requested By: Order Number: [id number] Reading MD: Christian Nelson MD Measurements Intervals [place] Rate: 93 P: [place]: QRS: -21 QRSD: 106 T: -26 QT: 398 QTc: 494 Interpretive Statements Atrial fibrillation Prolonged QT Electronically Signed On 03-21-2024 16:16:23 PST by Christian Nelson MD
--- NOTE | 2024-03-20 10:15 | DI.RAD.S_ITS ---
PROCEDURE: XR CHEST 1V INDICATIONS: ? seizure activity TECHNIQUE: One view of the chest was acquired. COMPARISON: None. FINDINGS: Surgical changes and devices: Sternotomy. Lungs and pleura: Lungs are clear. No pleural effusions or pneumothorax. Mediastinum: Mediastinal contours appear normal. Heart size is normal. Bones and chest wall: No suspicious bony lesions. Overlying soft tissues appear unremarkable. IMPRESSION: No acute cardiopulmonary abnormality is seen. Dictated by: Memo Nayak M.D. on 03/20/2024 at 11:03 Approved by: Memo Nayak M.D. on 03/20/2024 at 11:04
--- NOTE | 2024-03-20 10:18 | ED.SEIZURE ---
HPI - Seizure General Chief Complaint: Seizure Stated Complaint: had a seizure this morning sent from PCP Time Seen by Provider: 03/20/24 10:15 Source: patient, family, RN notes reviewed and old records reviewed Mode of arrival: Ambulatory Limitations: no limitations History of Present Illness HPI Narrative: 83-year-old male history of coronary artery disease with prior 5 vessel CABG, permanent atrial fibrillation on warfarin, hypertension, BPH, dyslipidemia, gout who presents with complaint of possible seizure activity. About 6:00 a.m. this morning patient's awoke to patient having full body shaking. She states it lasted 5-10 minutes. She poked it and he was sort of blunted but did not wake up or talk to her. She waited until about 8 or 830 he awoke at that time she states he has been acting normally since. She was noticed in the past he has had occasional twitches of extremities but thought they were just twitches. He has never had changes that she saw this morning. Patient himself does not recall any of the events. He states he feels totally normal today. States felt normal yesterday. No recent fevers no recent cold, cough or congestive symptoms. No chest pain or shortness of breath. No nausea or vomiting. Patient has not had any bowel or bladder incontinence. No numbness, tingling or weakness of extremities no difficulty with ambulation, movement or speech. No headaches. Patient notes a little bit of difficulty starting urination chronically but no dysuria urgency or frequency. He saw his policy loan calculator yesterday for a checkup did not have any medication changes. He takes allopurinol, lisinopril, metoprolol, omeprazole, tadalafil, tamsulosin, Kenalog topically and warfarin. Had an INR checked yesterday which was 2.6. States prior 5 vessel CABG about 5 or 6 years ago as his only prior surgery. Denies any known drug allergies. No tobacco, denies any regular alcohol, no recreational drugs. Patient states he has been feeling well. Does feel like she was treated of neurologic issues or seizure disorder. He notes his gait has been a little bit slower over time but no tremors or other movement changes. Patient's primary care is Dr. Arce, family had reached out to their office this morning they recommended patient come to the ED for evaluation. Related Data Home Medications Medication Instructions Recorded Confirmed atorvastatin 40 mg tablet (Lipitor) 40 mg PO DAILY 11/16/17 07/14/18 omeprazole 10 mg capsule,delayed 10 mg PO DAILY 11/16/17 07/14/18 release warfarin 5 mg tablet (Coumadin) 5 mg PO 2XW 11/16/17 07/14/18 allopurinol 300 mg tablet 300 mg PO DAILY 12/12/17 07/14/18 metoprolol succinate 100 mg 50 mg PO BID 12/12/17 07/14/18 tablet,extended release 24 hr tamsulosin 0.4 mg capsule 1 cap PO QPM 12/12/17 07/14/18 desoximetasone 0.25 % topical cream 1 applic topical DAILY 02/04/18 07/14/18 lisinopril 5 mg tablet 5 mg PO DAILY 02/04/18 07/14/18 [employer] BIPAP #1 ea 07/14/18 07/14/18 Previous Rx's Medication Instructions Recorded docusate sodium 100 mg capsule 100 mg PO BID #60 caps 02/10/18 oxycodone 5 mg tablet 10 mg (2 x 5 mg) PO Q3HR PRN Pain, 02/10/18 Severe (7-10) #20 tabs levetiracetam 500 mg tablet 500 mg PO BID #60 tabs 03/20/24 (Keppra) Allergies Allergy/AdvReac Type Severity Reaction Status Date / Time No Known Drug Allergies Allergy Verified 03/20/24 10:09 Review of Systems Review of Systems ROS Unobtainable: All systems reviewed & are unremarkable except as noted in HPI and below Patient History Medical History (Updated 03/20/24 @ 16:03 by Teresa Moya DO) Atrial fibrillation Hyperlipidemia HTN (hypertension) CAD (coronary artery disease) Surgical History Hx of CABG Social History household members: spouse Smoking Status: Former smoker alcohol intake: current Smoking Status: Former smoker alcohol intake frequency: 0-2 drinks per day Exam Narrative Exam Narrative: GEN: well nourished, well appearing male, alert and oriented x 3, patient appears to be in no acute distress. HEENT: Atraumatic, pupils are equal round reactive to light, extraocular movements are intact, nares are clear, TMs are clear with no fluid, there is no conjunctival pallor. Throat is clear without any exudates, erythema, tonsillar enlargement or uvular deviation HEART: Regular rate and rhythm without murmur, clicks, rubs. pulses are equal in upper and lower extremities LUNGS:Lungs clear to auscultation, no wheezes, rales, crackles, chest moves symmetrically ABD:bowel sounds normal, soft, non-tender, no guarding, rebound, rigidity, no masses noted, no hepatosplenomegaly :No CVA tenderness MSCL: Non-tender, no muscle atrophy, muscles strength 5/5 upper and lower extremities, full range of motion NEURO:CN 2-12 intact, sensation normal, reflexes 2/4 upper and lower extremities. finger nose finger test normal, heel palafox test normal. No dysarthria or aphasia. Initial Vital Signs Initial Vital Signs: Vital Signs Temperature 97.7 F 03/20/24 10:06 Pulse Rate 80 03/20/24 10:06 Respiratory Rate 16 03/20/24 10:06 Blood Pressure 115/75 03/20/24 10:06 Pulse Oximetry 98 03/20/24 10:06 Oxygen Delivery Method Room Air 03/20/24 10:06 Scores GCS [place] coma scale eye opening: Spontaneous [place] coma scale verbal response: Orientated [place] coma scale motor response: Obey commands [place] coma scale total score: 15 Course Orders Ordered: ED Orders 03/20/24 10:09 CBC Auto Diff [Complete Blood Count AUTO DIFF] Stat CK [Creatine Kinase] Stat CMP [Comprehensive Metabolic Panel] Stat ETOH [Ethanol (ETOH)] Stat Prothrombin Time INR Stat TSH [Thyroid Stimulating Hormone] Stat 03/20/24 10:11 CT head/brain wo con Stat 03/20/24 10:15 Chest [XR chest 1V] Stat EKG-12 Lead Stat 03/20/24 11:27 Urine Drug Screen, Rapid Stat 03/20/24 12:12 MR head/brain wo/w con Stat Discontinued Medications Levetiracetam (Levetiracetam 250 Mg Tablet) 500 mg PO NOW ONE Stop: 03/20/24 12:13 Last Admin: 03/20/24 12:31 Dose: 500 mg Documented By: THANH Lorazepam (Lorazepam 0.5 Mg Tablet) 1 mg PO NOW ONE Stop: 12/13/24 14:01 Last Admin: 03/20/24 13:54 Dose: 1 mg Documented By: THANH Vital Signs Vital signs: Vital Signs - 8 hr 03/20/24 10:06 03/20/24 10:23 03/20/24 10:24 Temperature 97.7 F Pulse Rate 80 91 H 93 H Respiratory Rate 16 14 Blood Pressure 115/75 Pulse Oximetry 98 96 96 Oxygen Delivery Method Room Air Room Air 03/20/24 10:24 03/20/24 10:30 03/20/24 10:30 Temperature Pulse Rate 91 H Respiratory Rate 15 Blood Pressure 110/91 H 104/70 Pulse Oximetry 95 Oxygen Delivery Method 03/20/24 11:00 03/20/24 11:00 03/20/24 11:30 Temperature Pulse Rate 83 86 Respiratory Rate 14 15 Blood Pressure 117/70 Pulse Oximetry 97 99 Oxygen Delivery Method Room Air 03/20/24 11:30 03/20/24 12:00 03/20/24 12:00 Temperature Pulse Rate 89 Respiratory Rate 15 Blood Pressure 121/74 115/78 Pulse Oximetry 99 Oxygen Delivery Method 03/20/24 13:57 03/20/24 13:57 03/20/24 16:13 Temperature Pulse Rate 86 97 H Respiratory Rate Blood Pressure 119/94 H Pulse Oximetry 95 96 Oxygen Delivery Method MDM - Seizure Lab Data 03/20/24 10:09 03/20/24 10:09 Labs: Lab Results 03/20/24 03/20/24 Range/Units 10:09 11:27 WBC 7.5 (4.5-11.0) X10^3/uL RBC 4.48 L (4.5-5.9) X10^6/uL Hgb 13.9 (13.5-17.5) g/dL Hct 41.6 (41-53) % MCV 92.9 (80-100) fL MCH 31.1 (26-34) PG MCHC 33.5 (30-36) % RDW 14.6 (11.6-14.8) % Plt Count 193 (150-400) X10^3/uL Neut % (Auto) 62.4 (50-75) % Lymph % (Auto) 27.4 (25-40) % [place] % (Auto) 7.9 (3-14) % Eos % (Auto) 1.6 L (2-4) % Baso % (Auto) 0.7 (0-2) % Neut # (Auto) 4700 (7722-1853) /uL Lymph # (Auto) 2100 (2101-9102) /uL [place] # (Auto) 600 (0-900) /uL Eos # (Auto) 100 (0-450) /uL Baso # (Auto) 100 (0-100) /uL PT 24.7 H (9.4-12.5) SECONDS INR 2.2 H (0.9-1.3) Sodium 138 (137-145) mmol/L Potassium 3.8 (3.4-5.1) mmol/L Chloride 103 (98-107) mmol/L Carbon Dioxide 26 (22-32) mmol/L BUN 16 (9-20) mg/dL Creatinine 0.67 (0.66-1.25) mg/dL Estimated GFR > 60 (>60) mL/min BUN/Creatinine Ratio 23.9 H (6-22) Glucose 113 H (80-110) mg/dL Calcium 9.0 (8.4-10.2) mg/dL Total Bilirubin 1.4 H (0.2-1.3) mg/dL AST 39 (17-59) IU/L ALT 48 (<50) IU/L Alkaline Phosphatase 38 (38-126) U/L Total Creatine Kinase 57 (55-170) U/L Total Protein 6.9 (6.3-8.2) g/dL Albumin 4.2 (3.5-5.0) g/dL Globulin 2.7 (1.7-4.1) g/dL Albumin/Globulin Ratio 1.6 (1.0-2.8) TSH 1.58 (0.47-4.68) uIU/mL U Opiates 300ng/mL cut Negative (Negative) Ur Oxycodone Screen Negative (Negative) Urine Methadone Screen Negative (Negative) Ur Barbiturates Screen Negative (Negative) U Tricyclic Antidepress Negative (Negative) Ur Phencyclidine Scrn Negative (Negative) Ur Amphetamines Screen Negative (Negative) U Methamphetamines Scrn Negative (Negative) Ur MDMA Scrn (Ecstasy) Negative (Negative) U Benzodiazepines Scrn Negative (Negative) Urine Cocaine Screen Negative (Negative) U Marijuana (THC) Screen Negative (Negative) Urine pH Normal (Normal) Urine Specific [place] Normal (Normal) Ethyl Alcohol < 10 ( - 10) mg/dL Ur Creatinine Normal (Normal) Urine Dip Bedside Urine Glucose Negative Bedside Urine Bilirubin - Negative Bedside Urine Ketone - Negative Urine Specific [place] 1.005 Bedside Urine Occult Blood - Negative Bedside Urine pH 7.5 Bedside Urine Protein - Negative Bedside Urine Urobilinogen - Negative Bedside Urine Nitrite - Negative Bedside Urine Leukocytes - Negative Esterase Imaging Data CT scan - head: Radiologist's Impression: Close Chest X-Ray (Signed) Memo Nayak - 03/20/[address] (Signed) Karina De Luna - 03/20/24 Shoulder MRI (Signed) Isra Stauffer - 02/06/21 Shoulder X-Ray (Signed) Pedro Pablo Alonso - 12/13/20 Radiology Report (Cancelled) Steve Chopra - 12/16/19 Myocardial Perfusion Scan Nuc Med (Signed) Damian Choprau - 12/16/19 Chest X-Ray (Signed) Roly Dick - 02/09/18 Chest X-Ray (Signed) Isra Stauffer - 02/08/18 Chest X-Ray (Signed) Isra Stauffer - 02/08/18 Chest X-Ray (Signed) Karina De Luna - 02/06/18 Telemetry Strips 02/04/18 Telemetry Strips 02/04/18 Bladder Scan 02/04/18 Shoulder X-Ray (Signed) Estefany Johnston - 02/03/[address] (Signed) Isra Stauffer - 02/03/[address] (Signed) Isra Stauffer - 02/03/18 Chest X-Ray (Signed) Isra Stauffer - 12/12/17 Telemetry Strips 12/12/17 Telemetry Strips 11/16/17 Chest X-Ray (Signed) Azam Castro - 11/16/17 Shoulder X-Ray (Signed) Azam Castro - 11/16/17 Shoulder X-Ray (Signed) Yung Green - 11/16/17 Retroperitoneum Ultrasound (Signed) Estefany Johnston - 08/06/[address] [address] [address] Scan Report Signed Patient: Oneal Benz MR#: [id number] : 1940 Acct:[id number] Age/Sex: 83 / M Date of Service: 03/20/24 Loc: ED Accession Number: [id number] Procedure: CT head/brain wo con Ordering Provider: Teresa Moya D.O. PROCEDURE: CT HEAD/BRAIN WO CON INDICATIONS: possible first time seizure TECHNIQUE: Noncontrast 4.5 mm thick angled axial sections acquired from the foramen magnum to the vertex, with coronal and sagittal reformats. For radiation dose reduction, the following was used: automated exposure control, adjustment of mA and/or kV according to patient size. COMPARISON: CT, CT HEAD/BRAIN WO CON, 02/03/2018, 22:12. FINDINGS: Image quality: Diagnostic. CSF spaces: Basal cisterns are patent. No extra-axial fluid collections. The ventricles are symmetric in size and shape. Brain: No intracranial bleeds or masses. There is cerebral volume loss for age, with resultant ventricular and sulcal prominence. There are periventricular and deep white matter chronic small vessel ischemic changes. 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 There is intracranial internal carotid artery and vertebral artery atherosclerosis. Skull and face: Calvarium and visualized facial bones appear intact, without suspicious lesions. Sinuses: Small mucous retention cyst in the left sphenoid sinus. The mastoids are clear. IMPRESSION: No acute intracranial pathology. Dictated by: Karina De Luna MD, PhD on 03/20/2024 at 10:49 Approved by: Karina De Luna MD, PhD on 03/20/2024 at 10:51 ? Chest x-ray: Radiologist's Impression: [place] [address] XRay Report Signed Patient: Oneal Benz MR#: [id number] : 1940 Acct:[id number] Age/Sex: 83 / M Date of Service: 03/20/24 Loc: ED Accession Number: [id number] Procedure: XR chest 1V Ordering Provider: Teresa Moya D.O. PROCEDURE: XR CHEST 1V INDICATIONS: ? seizure activity TECHNIQUE: One view of the chest was acquired. COMPARISON: None. FINDINGS: Surgical changes and devices: Sternotomy. Lungs and pleura: Lungs are clear. No pleural effusions or pneumothorax. Mediastinum: Mediastinal contours appear normal. Heart size is normal. Bones and chest wall: No suspicious bony lesions. Overlying soft tissues appear unremarkable. IMPRESSION: No acute cardiopulmonary abnormality is seen. Dictated by: Memo Nayak M.D. on 03/20/2024 at 11:03 Approved by: Memo Nayak M.D. on 03/20/2024 at 11:04 MR brain: Radiologist's Impression: Oneal Benz W??83??M??1940 ? Allergy/Adv: No Known Drug Allergies Close Brain MRI (Signed) Anselmo Graves - 03/20/24 Chest X-Ray (Signed) Memo Nayak - 03/20/[address] (Signed) Karina De Luna - 03/20/24 Shoulder MRI (Signed) Isra Stauffer - 02/06/21 Shoulder X-Ray (Signed) Pedro Pablo Alonso - 12/13/20 Radiology Report (Cancelled) Steve Chopra - 12/16/19 Myocardial Perfusion Scan Nuc Med (Signed) Steve Chopra - 12/16/19 Chest X-Ray (Signed) Roly Dick - 02/09/18 Chest X-Ray (Signed) Isra Stauffer - 02/08/18 Chest X-Ray (Signed) Isra Stauffer - 02/08/18 Chest X-Ray (Signed) Karina De Luna - 02/06/18 Telemetry Strips 02/04/18 Telemetry Strips 02/04/18 Bladder Scan 02/04/18 Shoulder X-Ray (Signed) Estefany Johnston - 02/03/[address] (Signed) Isra Stauffer - 02/03/[address] (Signed) Isra Stauffer - 02/03/18 Chest X-Ray (Signed) Isra Stauffer - 12/12/17 Telemetry Strips 12/12/17 Telemetry Strips 11/16/17 Chest X-Ray (Signed) Azam Castro - 11/16/17 Shoulder X-Ray (Signed) Azam Castro - 11/16/17 Shoulder X-Ray (Signed) Yung Green - 11/16/17 Retroperitoneum Ultrasound (Signed) Estefany Johnston - 08/06/17 [address] [address] Magnetic Resonance Report Signed Patient: Oneal Benz MR#: [id number] : 1940 Acct:[id number] Age/Sex: 83 / M Date of Service: 03/20/24 Loc: ED Accession Number: [id number] Procedure: MR head/brain wo/w con Ordering Provider: Teresa Moya D.O. PROCEDURE: MR HEAD/BRAIN WO/W CON INDICATIONS: seizure protocol, first-time seizure TECHNIQUE: Noncontrast axial T1 spin echo, axial T2 fast spin echo, sagittal and axial FLAIR, axial gradient echo, axial diffusion and ADC, coronal thin-slice T2 FSE through the brain. Optional contrast, followed by axial and coronal and sagittal 3D VIBE or T1 spin echo with fat saturation sequences through the brain. COMPARISON: None. FINDINGS: Image quality: Excellent. CSF spaces: Ventricles are normal in size and shape. Basal cisterns are patent. No extra-axial fluid collections. Brain: No intracranial bleeds or mass effects. No abnormal intracranial enhancement. Escoto-white matter interface appears intact. Age-related volume loss and moderate to severe small vessel ischemic change. Scattered small areas of hemosiderin deposition are nonspecific, but potentially may indicate the presence of amyloid angiopathy. Diffusion weighted images demonstrate no acute ischemic insults. Brainstem appear normal. Normal intravascular flow voids are present. The hippocampal regions appear normal and symmetric in morphology. Skull and face: Calvarial marrow signal is normal. Orbits appear normal. Sinuses: Sphenoid sinus mucous retention cyst. Sinuses and mastoids are otherwise clear. IMPRESSION: 1. Age-related volume loss and moderate to severe small vessel ischemic change. 2. Scattered small areas of hemosiderin deposition are nonspecific. However, they may potentially indicate the presence of amyloid angiopathy. 3. No masses. Dictated by: Anselmo Graves M.D. on 03/20/2024 at 15:48 Approved by: Anselmo Graves M.D. on 03/20/2024 at 15:50 ECG Data Attestation: I personally reviewed and interpreted this ECG as follows: Prior ECG tracings: available for review Interpretation: AFib rate of 93 WI 106 QRS of 494, no acute ST elevation patient has prior from 02/23/2018 shows AFib RVR, patient prior on 02/03/2018 showed left axis deviation. MDM Narrative Medical decision making narrative: Well-appearing 83-year-old male with what is described as potential seizure activity at about 6:00 a.m. this morning lasting possibly 5-10 minutes, patient did not have any lacerations to the mouth no incontinence but describes tonic-clonic type movement. Patient did not awakened immediately after the event he got up about 8 or 830 this morning he states he feels normal. Both patient and state he has been acting normal no recent trauma or injuries no recent infectious symptoms or medication changes. Patient is currently well-appearing with a normal neurologic exam. Patient has seizure pads in place. Labs white count of 7.5 hemoglobin of 13.9 platelets of 193. INR today therapeutic at 2.2. Sodium is 138 potassium 3.8 chloride 103 CO2 is 26 BUN 16 creatinine 0.67 glucose of 113 bilirubin is 1.4 calcium is 9 LFTs are otherwise negative TSH is 1.58 total CK is 57. ETOH is negative. Urine drug screen is negative. EKG shows AFib but rate controlled. Urine is negative. Head CT small chronic lacunar infarcts left cerebellar hemisphere, small mucous retention cyst left sphenoid sinus mastoids are clear. No acute intracranial pathology. Chest shows no acute change MR brain shows age-related volume loss moderate to severe small-vessel ischemic change scattered small areas of hemosiderin deposition or nonspecific may potentially indicate presence of amyloid angiopathy no acute ischemic insults. No masses. Spoke with Neurology, Dr. Chong, recommends Keppra 500 mg p.o. b.i.d., MR seizure protocol, EEG and no driving for the next 6 months. Patient's reach out to set up follow up. Patient had MRSA seizure protocol here in the department to facilitate workup. Patient has been asymptomatic here in the department discharged home with return precautions with patient and were comfortable with the plan prescription sent for Keppra and discussed seizure precautions. Reviewed patient's findings from today including MRI. Spoke with Dr. Arce, patient's primary care physician help facilitate follow-up. Discharge Plan Departure Patient Disposition: Home Clinical Impression: Observed seizure-like activity Instructions: DI for Seizure (Not Epilepsy/Seizure Disorder) Activity Restrictions/Additional Instructions: Follow up with Neurology, I spoke with Dr. Chong today. Please call to set up follow up with the office. It is recommended that you start Keppra 500 mg twice daily this medication is help prevent any potential seizures. Prescription was sent to [facility] in [place]. Is also recommended you follow up for outpatient EEG. No driving until cleared by your physician or neurology, avoid taking baths or being in pools or bodies of water by yourself or other high-risk activities where a sudden loss of consciousness would endanger you or others. Please return for recurrent symptoms, severe headaches, fevers, sudden vision changes, new chest pain or shortness of breath, persistent vomiting, atypical movements or other new or concerning changes. Prescriptions: New levetiracetam [Keppra] 500 mg tablet 500 mg PO BID Qty: 60 0RF No Action atorvastatin [Lipitor] 40 mg Tablet 40 mg PO DAILY omeprazole 10 mg Capsule,Delayed Release(Dr/Ec) 10 mg PO DAILY warfarin [Coumadin] 5 mg Tablet 5 mg PO 2XW Patient Comments: takes Saturday and Saturday tamsulosin 0.4 mg capsule 1 cap PO QPM allopurinol 300 mg tablet 300 mg PO DAILY metoprolol succinate 100 mg tablet extended release 24 hr 50 mg PO BID desoximetasone 0.25 % Cream 1 applic TOPICAL DAILY lisinopril 5 mg Tablet 5 mg PO DAILY docusate sodium 100 mg Capsule 100 mg PO BID Qty: 60 1RF oxycodone 5 mg Tablet 10 mg PO Q3HR PRN (Reason: Pain, Severe (7-10)) Qty: 20 0RF (DME) [employer] BIPAP Qty: 1 Dose Instruction: As directed Patient Comments: Pressure: IPAP 16 EPAP 6 DME: [facility] Rx Instructions: As directed Referrals: Enrike Arce MD [Primary Care Provider] - Zach Chong MD [Non-Staff] - Stand Alone Forms: Patient Portal/API/Survey
[2024-03-20 10:30] LABS: Add Manual Diff / Slide Review NO; Basophils Absolute Auto 100 /uL (0-100); Basophils Percent Auto 0.7 % (0-2); Eosinophils Absolute Auto 100 /uL (0-450); Eosinophils Percent Auto 1.6 % (2-4); Hematocrit 41.6 % (41-53); Hemoglobin 13.9 g/dL (13.5-17.5); Lymphocytes Absolute Auto 2100 /uL (1100-4500); Lymphocytes Percent Auto 27.4 % (25-40); Mean Corpuscular HGB Conc 33.5 % (30-36); Mean Corpuscular Hemoglobin 31.1 PG (26-34); Mean Corpuscular Volume 92.9 fL (80-100); Monocytes Absolute Auto 600 /uL (0-900); Monocytes Percent Auto 7.9 % (3-14); Neutrophils Absolute Auto 4700 /uL (1500-7000); Neutrophils Percent Auto 62.4 % (50-75); Platelet Count 193 X10^3/uL (150-400); Red Blood Cell Count 4.48 X10^6/uL (4.5-5.9); Red Cell Distribution Width 14.6 % (11.6-14.8); White Blood Cell Count 7.5 X10^3/uL (4.5-11.0)
[2024-03-20 10:35] LABS: Alanine Aminotransferase 48 IU/L (<50); Albumin 4.2 g/dL (3.5-5.0); Albumin Globulin Ratio 1.6 (1.0-2.8); Alkaline Phosphatase 38 U/L (38-126); Aspartate Aminotransferase 39 IU/L (17-59); BUN Creatinine Ratio 23.9 (6-22); Bilirubin Total 1.4 mg/dL (0.2-1.3); Blood Urea Nitrogen 16 mg/dL (9-20); Carbon Dioxide 26 mmol/L (22-32); Chloride 103 mmol/L (98-107); Creatine Kinase 57 U/L (55-170); Estimated Glomerular Filt Rate > 60 mL/min (>60); Ethanol (ETOH) < 10 mg/dL; Globulin 2.7 g/dL (1.7-4.1); Glucose 113 mg/dL (80-110); HEMOLYSIS < 15 (0-50); Potassium 3.8 mmol/L (3.4-5.1); Sodium 138 mmol/L (137-145); Total Protein 6.9 g/dL (6.3-8.2)
[2024-03-20 10:38] LABS: INR 2.2 (0.9-1.3); Prothrombin Time 24.7 SECONDS (9.4-12.5)
[2024-03-20 11:12] LABS: Thyroid Stimulating Hormone 1.58 uIU/mL (0.47-4.68)
[2024-03-20 11:42] LABS: Ur Creatinine Normal (Normal); Ur Specific Gravity Normal (Normal); Urine Tetrahydrocannabinol Negative (Negative); Urine pH Normal (Normal)
[2024-03-20 11:43] LABS: UR Morphine/Opiate cutoff 300 Negative (Negative); Urine Amphetamines Negative (Negative); Urine Barbiturates Negative (Negative); Urine Benzodiazepines Negative (Negative); Urine Cocaine Negative (Negative); Urine MDMA Negative (Negative); Urine Methadone Negative (Negative); Urine Methamphetamines Negative (Negative); Urine Oxycodone Negative (Negative); Urine Phencyclidine Negative (Negative); Urine Tricyclic Antidepressant Negative (Negative)
--- NOTE | 2024-03-20 12:12 | DI.MRI.S_ITS ---
PROCEDURE: MR HEAD/BRAIN WO/W CON INDICATIONS: seizure protocol, first-time seizure TECHNIQUE: Noncontrast axial T1 spin echo, axial T2 fast spin echo, sagittal and axial FLAIR, axial gradient echo, axial diffusion and ADC, coronal thin-slice T2 FSE through the brain. Optional contrast, followed by axial and coronal and sagittal 3D VIBE or T1 spin echo with fat saturation sequences through the brain. COMPARISON: None. FINDINGS: Image quality: Excellent. CSF spaces: Ventricles are normal in size and shape. Basal cisterns are patent. No extra-axial fluid collections. Brain: No intracranial bleeds or mass effects. No abnormal intracranial enhancement. [place]-white matter interface appears intact. Age-related volume loss and moderate to severe small vessel ischemic change. Scattered small areas of hemosiderin deposition are nonspecific, but potentially may indicate the presence of amyloid angiopathy. Diffusion weighted images demonstrate no acute ischemic insults. Brainstem appear normal. Normal intravascular flow voids are present. The hippocampal regions appear normal and symmetric in morphology. Skull and face: Calvarial marrow signal is normal. Orbits appear normal. Sinuses: Sphenoid sinus mucous retention cyst. Sinuses and mastoids are otherwise clear. IMPRESSION: 1. Age-related volume loss and moderate to severe small vessel ischemic change. 2. Scattered small areas of hemosiderin deposition are nonspecific. However, they may potentially indicate the presence of amyloid angiopathy. 3. No masses. Dictated by: Anselmo Graves M.D. on 03/20/2024 at 15:48 Approved by: Anselmo Gravse M.D. on 03/20/2024 at 15:50
--- NOTE | 2024-03-20 12:15 | PC.NURSE ---
with [facility] was paged at [phone] and called back to consult with at [phone]
[2024-03-20] MEDS: levETIRAcetam 250 MG TABLET 500 MG PO (12:31)
[2024-03-20] MEDS: LORazepam 0.5 MG TABLET 1 MG PO (13:54)
== END 2024-03-20 16:27 | disposition home or self-care (01) ==
PROVIDERS: Emergency Provider Emergency Medicine; Family Provider Family Medicine; PCP Family Medicine
DX: R29.818 Other symptoms and signs involving the nervous system (principal); I25.10 Atherosclerotic heart disease of native coronary artery without angina pectoris; Z95.1 Presence of aortocoronary bypass graft; I48.21 Permanent atrial fibrillation; Z79.01 Long term (current) use of anticoagulants; Z87.891 Personal history of nicotine dependence
CPT/HCPCS: 36415; 70450; 70553; 71045; 80053; 80305; 80320; 81003; 82550; 84443; 85025; 85610; 93005; 99284; A9579

== ENCOUNTER → 2024-04-24 13:49 | Outpatient (CLI) | payer MEDICARE, SELFPAY ==
[2018-02-08 15:53] VITALS: BMI 31.1
--- NOTE | 2024-04-24 13:51 | DI.ECHO.S_ITS ---
[facility]+ [facility] : : [address] : : [place] : : [id number] : : Phone: [phone] Echocardiogram Report + + :Name: PATRICK ANGLIN Study Date: 04/24/2024 Height: 71 in : [facility] ReadingLocation: Weight: 196 lb : : Gender: Male BSA: 2.1 m2 : :: 1940 Age: 83 yrs BP: 122/92 mmHg: :Reason For Study: NONRHEUMATIC MITRAL VALVE INSUFFICIENCY : :Ordering Physician: TRUDY, : :LENA Performed By: Vic Proctor : :Referring: LENA YATES : + + Interpretation Summary 1) Normal left ventricular thickness and size with mildly reduced systolic function (EF 45-50%). 2) Mildly enlarged right ventricle with mildly reduced function. 3) There is mild to moderate mitral regurgitation. 4) Compared to the Echo done 02/02/2024, LVEF has decreased from normal to mildly reduced on this study. Procedure: A two-dimensional transthoracic echocardiogram with color flow and Doppler was performed. The study quality was technically good. Comparison is made with the echocardiogram of 02/01/2014. The patient was in atrial fibrillation with heart rates between 85-117 bpm during the exam. Left Ventricle: The left ventricle is normal in size. Left ventricular wall thickness is mild-moderately increased. There is no ventricular septal defect visualized. The ejection fraction is estimated to be 45-50%. There is mild global hypokinesis of the left ventricle. Diastolic function could not be accurately assessed due to atrial fibrillation. Right Ventricle: The right ventricle is mildly dilated. Right ventricular systolic function is mildly reduced. Atria: The left atrium is severely dilated. The right atrium is mildly dilated. There is no Doppler evidence for an interatrial shunt. Mitral Valve: The mitral valve leaflets appear mildly thickened, but open well. There is mild to moderate mitral regurgitation. Aortic Valve: The aortic valve is trileaflet. The aortic valve is slightly calcified. The aortic valve opens well. No aortic regurgitation is present. Tricuspid Valve: The tricuspid valve leaflets are thin and pliable. There is trace tricuspid regurgitation. The right ventricular systolic pressure is estimated to be at least 35 mmHg based on an estimated right atrial pressure of 8 mm Hg. Pulmonic Valve: The pulmonic valve leaflets are thin and pliable; valve motion is normal. There is no pulmonic valvular regurgitation. Great Vessels: The aortic root is normal size. The ascending aorta is mildly enlarged. The pulmonary artery is normal size. The IVC is dilated (diameter is greater than 2.1 cm) yet it collapses greater than 50% with a sniff. This suggests a right atrial pressure of 8 mm Hg. Pericardium/ Pleura There is no pericardial effusion. MMode/2D Measurements & Calculations LVIDd: 4.5 cm LVOT diam: 2.3 cm LVIDs: 3.4 cm Ao root diam: 3.4 cm FS: 22.8 % Ao Arch Diam (Prox Trans): 3.7 cm EPSS: 0.65 cm IVSd: 1.5 cm LVPWd: 1.2 cm LV champion. diameter/BSA (cm/m^2): 2.1 LV sys. diameter/BSA (cm/m^2): 1.6 LA A2 area: 40.6 cm2 RA long axis: 5.0 cm LA A4 area: 42.3 cm2 RA area: 16.2 cm2 LA length (vol): 7.4 cm RA vol: 44.6 ml LA vol: 198.2 ml RA : 21.3 ml/m2 LA vol index: 94.8 ml/m2 IVC diam: 2.5 cm RVD1 (basal): 4.1 cm TAPSE: 0.73 cm Doppler Measurements & Calculations Ao V2 max: 98.0 cm/sec LVOT Max Agustin: 57.0 cm/sec Ao V2 mean: 72.5 cm/sec LV V1 max P.3 mmHg Ao max P.8 mmHg LV V1 VTI: 11.9 cm Ao mean P.3 mmHg SOLA(I,D): 2.7 cm2 Ao V2 VTI: 18.5 cm SOLA(V,D): 2.4 cm2 sev ratio: 0.64 SOLA indexed to BSA (cm^2/m^2): 1.3 MV E max agustin: 86.3 cm/sec TR max agustin: 259.7 cm/sec MV A max agustin: 17.1 cm/sec TR max P.0 mmHg MV E/A: 5.0 PA V2 max: 45.8 cm/sec Med Peak E' Agustin: 5.4 cm/sec PA V2 mean: 30.7 cm/sec E/E' med: 16.0 PA mean P.43 mmHg Lat Peak E' Agustin: 8.9 cm/sec PA pr(Accel): 24.2 mmHg E/E' lat: 9.7 E/e' average: 12.8 MV dec time: 0.11 sec SV(LVOT): 49.4 ml Reading Physician:04:50 PM
== END ==
LOC: ECHO 13:50
PROVIDERS: Family Provider Family Medicine; PCP Family Medicine; Referring Provider Internal Medicine Cardiovascular Disease; Visit Provider Internal Medicine Cardiovascular Disease
DX: I34.0 Nonrheumatic mitral (valve) insufficiency (principal); I48.91 Unspecified atrial fibrillation; I77.810 Thoracic aortic ectasia
CPT/HCPCS: 93306

== ENCOUNTER → 2024-06-24 09:04 | Outpatient (CLI) | payer MEDICARE, SELFPAY ==
[2018-02-08 15:53] VITALS: BMI 31.1
--- NOTE | 2024-06-24 17:16 | DI.NM.S_ITS ---
DATE OF SERVICE: 06/24/2024 PHARMACOLOGICAL PERFUSION STUDY INDICATION: Known history of bypass surgery, permanent atrial fibrillation, hypertension, and hyperlipidemia. RADIOPHARMACEUTICAL: 25 millicurie technetium-99m Myoview IV was injected at stress and 11.8 mCi technetium-99m Myoview IV was injected at rest. CARDIAC STRESS: The patient underwent IV Lexiscan perfusion study under the supervision of an attending staff. The patient remained hemodynamically stable. Baseline blood pressure 106/84. Baseline rhythm AFib with controlled ventricular rate. During stress, no new convincing ischemic changes. The patient remained in AFib. Some PVCs. No chest pain. Had minimal dyspnea. RAW DATA: There is a significantly increased subdiaphragmatic activity. Gut shadow encroaching the inferior border of the heart. GATED STUDY: Resting LV ejection fraction 55% and stress LV ejection fraction at 48% with global hypokinesis. Resting end-diastolic volume 110 mL. TID ratio 1.16, which is within normal limits. Lung/heart ratio 0.24, which is within normal limits. MYOCARDIAL PERFUSION SCAN: Please note this patient does not have any prone images. Stress supine and resting supine images were compared to each other. Resting supine images revealed moderate-size, moderately decreased perfusion of distal anterior wall, anterior apex as well as large size, moderate to severely decreased perfusion of inferior wall extending into the inferior apex and basal inferoseptum. During stress supine images, there was large size, moderate to severely decreased perfusion of the entire anterior wall extending into the apex as well as inferior wall, inferior apex, basal inferoseptum, as well as the entire anteroseptum. No prone images. CONCLUSION: This is an abnormal myocardial perfusion study. 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 Predominantly fixed inferior wall, inferior apical, and basal inferior wall defect could have element of diaphragmatic tissue attenuation artifact as on raw data, there was increased subdiaphragmatic activity and gut shadow encroaching the inferior border of the heart. However one cannot rule out possibility of infarction in the right coronary artery territory. There is significant reversible ischemia of anteroseptum as well. The patient had a pharmacological perfusion study in December 2019, at that time, there was a predominantly fixed defect of mid anterior wall extending into the mid to distal portion of anteroseptum. In comparison to those studies, above-mentioned defects except mid anterior wall and mid to distal anteroseptal defect are new. In 2020, the stress LV ejection fraction was 58% and in this study, stress LV ejection fraction 48%. At that time also patient had pharmacological perfusion study. Resting end- diastolic volume has increased from 90 mL to 110 mL. We will send report to Dr. Greer. Oneal Benz - BRITTNEY/mili/LILY doc#: [id number]/job#: [id number] dd: 06/24/2024 16:39:00 dt: 06/24/2024 16:54:00 DICTATING MD/COPIES TO: Steve Chopra MD COPIES MNE: SUSAN;
== END ==
PROVIDERS: Family Provider Family Medicine; PCP Family Medicine; Referring Provider Internal Medicine Cardiovascular Disease; Visit Provider Internal Medicine Cardiovascular Disease
DX: I25.810 Atherosclerosis of coronary artery bypass graft(s) without angina pectoris (principal); I25.9 Chronic ischemic heart disease, unspecified; R93.1 Abnormal findings on diagnostic imaging of heart and coronary circulation
CPT/HCPCS: 78452; 93017; A9502; J2785

== ENCOUNTER → 2024-06-29 11:49 | Outpatient (CLI) | payer MEDICARE, SELFPAY ==
[2018-02-08 15:53] VITALS: BMI 31.1
[2024-06-29 12:23] LABS: Hematocrit 40.3 % (41-53); Hemoglobin 13.7 g/dL (13.5-17.5); Mean Corpuscular HGB Conc 34.1 % (30-36); Mean Corpuscular Hemoglobin 31.5 PG (26-34); Mean Corpuscular Volume 92.6 fL (80-100); Platelet Count 193 X10^3/uL (150-400); Red Blood Cell Count 4.36 X10^6/uL (4.5-5.9); Red Cell Distribution Width 14.4 % (11.6-14.8); White Blood Cell Count 7.1 X10^3/uL (4.5-11.0)
[2024-06-29 12:52] LABS: BUN Creatinine Ratio 23.8 (6-22); Blood Urea Nitrogen 15 mg/dL (9-20); Calcium 8.9 mg/dL (8.4-10.2); Carbon Dioxide 22 mmol/L (22-32); Chloride 103 mmol/L (98-107); Estimated Glomerular Filt Rate > 60 mL/min (>60); Glucose 115 mg/dL (80-110); HEMOLYSIS < 15 (0-50); Sodium 136 mmol/L (137-145)
== END ==
PROVIDERS: Family Provider Family Medicine; PCP Family Medicine; Referring Provider Internal Medicine Cardiovascular Disease; Visit Provider Internal Medicine Cardiovascular Disease
DX: I25.810 Atherosclerosis of coronary artery bypass graft(s) without angina pectoris (principal); R94.39 Abnormal result of other cardiovascular function study
CPT/HCPCS: 36415; 80048; 85027